=== PATIENT | male | born 1955 | race Caucasian/White ===

== ENCOUNTER 2016-05-28 06:31 | Inpatient (IN) | payer OTHER ==
[~2016-05-28] VITALS: Ht 193 cm; Wt 144.2 kg
[2016-05-28 06:32] VITALS: BP 162/104
--- NOTE | 2016-05-28 06:32 | NUR ---
PT TO BED 3 BY EMS.
--- NOTE | 2016-05-28 06:32 | NUR ---
PT [facility]. TAKEN TO BED 3
--- NOTE | 2016-05-28 06:33 | NUR ---
60 Y/O HERE C/O SOB XTODAY. PT INITIALLY ON MASK WHEN BIB AMBULANCE, D/T RECEIVING BREATHING TX.
--- NOTE | 2016-05-28 06:35 | NUR ---
RT CALLED AT BEDSIDE
--- NOTE | 2016-05-28 06:38 | NUR ---
Dr. Andersen evaluating patient at bedside.
[2016-05-28] MEDS ORDERED: ENALAPRILAT 2.5 MG/2 ML VIAL IVP ONE (06:50)
[2016-05-28] MEDS ORDERED: NITROGLYCERIN 2% 1 GM PKT TP ONE (06:50)
[2016-05-28] MEDS ORDERED: FUROSEMIDE 100 MG/10 ML VIAL IVP ONE (06:50)
--- NOTE | 2016-05-28 07:08 | NUR ---
Dr. Infante evaluating patient at bedside.
--- NOTE | 2016-05-28 07:23 | NUR ---
Pt report given to ERINN PIKE. Transfer of care at this time.
[2016-05-28] MEDS ORDERED: ALBUTEROL SULFATE/IPRATROPIU 3 ML SOL IH ONE (07:45)
[2016-05-28 07:53] VITALS: BP 155/83
--- NOTE | 2016-05-28 08:13 | NUR ---
PT PLACED ON BIPAP, ST /, RATE 18, FI02 35% PER DR PATEL, TOLERATING WELL. HHNTX ADMINISTERED, NO ADVERSE REACTION NOTED. WILL CONT TO MONITOR.
--- NOTE | 2016-05-28 08:16 | NUR ---
VASOTEC 2.5MG NOT GIVEN PER DR. KUMAR, PT HAD LASIX AND NITROBID. B/P COMING DOWN
--- NOTE | 2016-05-28 09:06 | NUR ---
Patient will be admitted to care of DR. VALENCIA. Admited to TELE. Will go to room 111 A. Belongings list completed. Report to ERINN TRAYLOR
--- NOTE | 2016-05-28 09:09 | NUR ---
PT TRANSEFERRED TO TELE
[2016-05-28 09:38] VITALS: BP 101/71
--- NOTE | 2016-05-28 09:38 | NUR ---
PT ADMITTED ON TO THE UNIT. VS STABLE. PT EATING BREAKFAST FAST. PT A/O X 4. PT SOB, ON 3L O2 NC. LUNGS DIMINISHED. NO CARDIAC DISTRESS. LBM ON 05/26/16. PICKETT CATHETER. RFA IV INTACT AND PATENT. 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 SAFETY MEASURES IN PLACE, ALLERGY BAND ATTACHED, FALL RISK PRECAUTIONS IN PLACE. CALL LIGHT WITHIN REACH. WILL INITIATE PLAN OF CARE AND CONTINUE TO MONITOR. RT TO FOLLOW UP WITH NEBULIZER MEDICATION AND BIPAP.
[2016-05-28] MEDS ORDERED: ONDANSETRON 4 MG/2 ML VIAL IVP PRN (09:40)
[2016-05-28] MEDS ORDERED: ACETAMINOPHEN 325 MG TAB PO PRN (09:40)
--- NOTE | 2016-05-28 10:15 | NUR ---
PT ON 3L NASAL CANNULA. PT DOES NOT WANT TO GO BACK ON BIPAP. PT IS NOT SOB AND NOT IN RESPIRATORY DISTRESS AT THIS TIME. PT STATES HE EXHIBITS SOB ON EXCERTION. ABG WILL BE PERFORMED.
[2016-05-28] MEDS: IPRATROPIUM 0.02% 0.5 MG/2.5 ML NEBU INH SCH ×4 (11:29→23:28)
[2016-05-28] MEDS: ALBUTEROL 0.083% 2.5 MG/3 ML NEBU INH SCH ×4 (11:29→23:28)
--- NOTE | 2016-05-28 11:30 | NUR ---
PT SLEEPING WITH BIPAP ON. NO S/S OF ACUTE CARDIAC/RESPIRATORY DISTRESS. CALL LIGHT WITHIN REACH. WILL CONTINUE TO MONITOR.
--- NOTE | 2016-05-28 11:50 | NUR ---
DR. VALENCIA MADE AWARE OF ABG RESULTS AND METABOLIC ACIDOSIS. NEW ORDERS GIVEN. ORDERS CARRIED OUT.
[2016-05-28 12:00] VITALS: BP 140/66
[2016-05-28] MEDS ORDERED: DEXTROSE 50% 50 ML SYR IVP PRN (12:00)
--- NOTE | 2016-05-28 12:14 | NUR ---
PT PLACED BACK ON BIPAP FOR SOB. PT TOLERATING WELL. BIPAP SETTINGS /, R18, 35%. BIPAP ALARMS ARE ON AND FUNCTIONING. WILL CONTINUE TO MONITOR.
[2016-05-28] MEDS: methylPREDNISolone SS 40 MG/ML VIAL IVP SCH ×2 (12:51→20:24)
[2016-05-28] MEDS: FUROSEMIDE 40 MG/4 ML VIAL IVP SCH ×2 (12:51→16:57)
--- NOTE | 2016-05-28 14:00 | NUR ---
PT AWAKE, MOVED TO [place] TO EAT LUNCH. WILL BE PLACED BACK ON BIPAP AFTER PT FINISH EATING LUNCH. CALL LIGHT WITHIN REACH. NO S/S OF DISTRESS OR DISCOMFORT. WILL CONTINUE TO MONITOR.
--- NOTE | 2016-05-28 14:14 | NUR ---
PT REMOVED BIPAP ON HIS OWN, STATED HE DID NOT WANT TO WHERE IT UNTIL HE ATE. PT PLACED ON 3L NASAL CANNULA. WILL CONTINUE TO MONITOR. NURSE DANE AWARE.
[2016-05-28 16:00] VITALS: BP 159/87
[2016-05-28] MEDS: BLOOD GLUCOSE MONITORING 1 DEV DEV FS SCH ×2 (16:56→20:52)
[2016-05-28] MEDS ORDERED: FUROSEMIDE 40 MG/4 ML VIAL IVP SCH (17:00)
--- NOTE | 2016-05-28 17:00 | NUR ---
PT SLEEPING ON BIPAP. NO S/S OF ACUTE DISTRESS OR DISCOMFORT. CALL LIGHT WITHIN REACH. WILL CONTINUE TO MONITOR.
[2016-05-28] MEDS: INSULIN ASPART SLIDING SCALE 100 UNITS/ML VIAL SUBQ PRN ×2 (17:42→21:07)
--- NOTE | 2016-05-28 19:22 | NUR ---
PT REFUSED SCD'S AT THIS TIME DUE TO BEING "TOO HOT". SCD'S LEFT AT BEDSIDE.
--- NOTE | 2016-05-28 19:30 | NUR ---
ENDORSED PLAN OF CARE TO NIGHT RN. PT REMAINS IN STABLE CONDITION.
--- NOTE | 2016-05-28 19:31 | NUR ---
RECEIVED REPORT FROM DAYSHIFT RN FOR CONTINUITY OF CARE. PATIENT IS A&OX4, DISCUSSED PLAN OF CARE WITH PATIENT, VERBALIZED UNDERSTANDING. NO S/S OF RESPIRATORY DISTRESS NOTED ON BIPAP. PATIENT DENIES PAIN BUT STATES BIPAP IS BOTHERING HIM. IV TO RT HAND 22 GAUGE FLUSHED AND PATENT. SHIFT ASSESSMENT DONE, VS TAKEN, STABLE. PATIENT HAS AMPUTATION TO 2ND AND 3RD TOES ON RT FOOT, RLE HEALED SCAB. PICKETT CATHETER IN PLACE DRAINING CLEAR YELLOW URINE. PT REFUSED SCDS AND BLANKET STATES THE ROOM IS HOT, OFFER PATIENT ICE PACKS. SAFETY/ FALL PRECAUTIONS ENFORCED. CALL LIGHT PLACED WITHIN REACH. WILL CONTINUE TO MONITOR.
[2016-05-28 20:00] VITALS: BP 123/56
[2016-05-28] MEDS: CARVEDILOL 6.25 MG TAB PO SCH (20:23)
[2016-05-28] MEDS: ATORVASTATIN 20 MG TAB PO SCH (20:24)
--- NOTE | 2016-05-28 20:35 | NUR ---
PT REMOVED BIPAP, EDUCATED PT ON IMPORTANCE OF USING BIPAP TO PREVENT RESPIRATORY DISTRESS, PT AGREED AND STATES, "I'LL USE IT LATER." WILL CONTINUE TO MONITOR.
--- NOTE | 2016-05-28 20:36 | NUR ---
PT REMOVED BIPAP, STS DOES NOT WANT TO USE IT AT THIS TIME. PLACED ON 3 L/M NC, PT'S RN, SILAS AT BEDSIDE, AWARE OF PT REQUEST.
--- NOTE | 2016-05-28 21:07 | NUR ---
MEDICATIONS ADMINISTERED, TOLERATED WELL. BLOOD SUGAR 328, ADMINISTERED INSULIN PER MD ORDER. PROVIDED PATIENT WITH A SNACK.
--- NOTE | 2016-05-28 21:34 | NUR ---
PT EXPERIENCING SHORTNESS OF BREATHE, PLACED ON BIPAP.
--- NOTE | 2016-05-28 23:34 | NUR ---
VS TAKEN, STABLE. PT IS SLEEPING, BIPAP IN PLACE. NO S/S OF DISTRESS OR DISCOMFORT NOTED.
[2016-05-29] VITALS: BP 140/63
--- NOTE | 2016-05-29 00:07 | NUR ---
PT REMOVED BIPAP, PLACED ON NASAL CANNULA.
--- NOTE | 2016-05-29 02:16 | NUR ---
ASSISTED PATIENT TO BEDSIDE COMMODE, LARGE BOWEL MOVEMENT. MINIMAL RESPIRATORY DISTRESS NOTED ON ROOM AIR. ASSISTED PATIENT BACK TO BED AND MADE COMFORTABLE, PLACED ON 3L NC. PT REFUSED BIPAP AT THIS TIME.
--- NOTE | 2016-05-29 02:41 | NUR ---
PT STATES, " I NEED BIPAP QUICK." PLACED ON BIPAP AND PROVIDED EXTRA PILLOW.
[2016-05-29] MEDS: ALBUTEROL 0.083% 2.5 MG/3 ML NEBU INH SCH ×6 (03:23→23:00)
[2016-05-29] MEDS: IPRATROPIUM 0.02% 0.5 MG/2.5 ML NEBU INH SCH ×6 (03:23→23:00)
[2016-05-29 04:00] VITALS: BP 136/59
[2016-05-29] MEDS: methylPREDNISolone SS 40 MG/ML VIAL IVP SCH ×3 (04:22→20:49)
--- NOTE | 2016-05-29 04:29 | NUR ---
VS TAKEN, STABLE. PATIENT REMOVED BIPAP AGAIN, ON 3L NC. PROVIDED PATIENT WITH SNACK.
[2016-05-29] MEDS: BLOOD GLUCOSE MONITORING 1 DEV DEV FS SCH ×4 (05:45→20:53)
[2016-05-29] MEDS: INSULIN ASPART SLIDING SCALE 100 UNITS/ML VIAL SUBQ PRN ×4 (06:07→21:12)
--- NOTE | 2016-05-29 06:07 | NUR ---
BLOOD SUGAR 305, INSULIN ADMINISTERED PER MD ORDER. PATIENT ON NASAL CANNULA, DOES NOT WANT BIPAP.
--- NOTE | 2016-05-29 06:40 | NUR ---
RECEIVED PT OFF BIPAP PT ON 5L N\C DECREASED TO 3L
--- NOTE | 2016-05-29 06:55 | NUR ---
PT REQUEST BIPAP ST 04/03 RR18 FIO2 35 DECREASED FIO2 TO 30 ALARMS ARE ON AND FUNCTIONAL PT WEARING F\F MASK SIZE LG BIPAP PLUGGED INTO RED OUTLET PT WAS AWAKE WENT BACK TO SLEEP
--- NOTE | 2016-05-29 07:17 | NUR ---
ENDORSED PATIENT TO DAYSHIFT RN FOR CONTINUITY OF CARE. PATIENT IS STABLE.
--- NOTE | 2016-05-29 07:18 | NUR ---
RECEIVED REPORT FROM NURSE CARE MANAGER RN. PT IS A/O X 4, NO S/S OF ACUTE CARDIAC/RESPIRATORY DISTRESS. PT IS EATING BREAKFAST AND REQUESTING MORE FOOD. PT ON NC WHILE EATING. LBM 05/28/16 ON BEDSIDE COMMODE. R HAND IV PATENT AND INTACT. VS STABLE. SAFETY MEASURES IN PLACE, CALL LIGHT WITHIN REACH. WILL CONTINUE PLAN OF CARE AND CONTINUE TO MONITOR.
--- NOTE | 2016-05-29 07:31 | NUR ---
CHANGE INNER CANNULA PORTEX 8 TRACH TIE GAUZE WITHOUT INCIDENT DRAIN H2O BAG PTS TRACH PORTEX 8 IS SECURE Addendum: 05/29/16 at 0735 by Jennifer Vizcarra RT PT REFUSES SX Addendum: 05/29/16 at 0803 by Jennifer Vizcarra RT WRONG PATIENT
--- NOTE | 2016-05-29 07:40 | NUR ---
DR VALENCIA MADE AWARE OF CRITICAL LABS BUN 61 AND CREATININE 2.7. NO NEW ORDERS GIVEN.
[2016-05-29 08:00] VITALS: BP 149/69
--- NOTE | 2016-05-29 08:12 | NUR ---
PATIENT HAS BEEN SCREENED AND CATEGORIZED HIGH NUTRITION RISK. PATIENT WILL BE SEEN WITHIN 1-2 DAYS OF ADMISSION. 05/29/16-05/30/[address]
--- NOTE | 2016-05-29 08:23 | NUR ---
CONT. POX PLACED
[2016-05-29] MEDS ORDERED: LOSARTAN 25 MG TAB PO SCH (09:00)
[2016-05-29] MEDS: CARVEDILOL 6.25 MG TAB PO SCH ×2 (09:00→09:30)
--- NOTE | 2016-05-29 09:04 | NUR ---
ENTERED ROOM TO DO BIPAP CHECK PT REMOVED BIPAP REFUSES AT THIS TIME 3 L N/C PLACED
[2016-05-29] MEDS: ENOXAPARIN 30 MG/0.3 ML SYR SUBQ SCH (09:29)
[2016-05-29] MEDS: FUROSEMIDE 40 MG/4 ML VIAL IVP SCH ×2 (09:29→12:34)
--- NOTE | 2016-05-29 09:43 | NUR ---
FAXED INITIAL REVIEW TO [facility] [phone] PHONE SACHA [phone]
--- NOTE | 2016-05-29 10:09 | NUR ---
PT WAS ON BEDSIDE COMMODE, LARGE BOWEL MOVEMENT. HELPED PT BACK IN BED AND PLACE BIPAP ON. NO S/S OF ACUTE DISTRESS OR DISCOMFORT. TOLERATED AM MEDS WELL. CALL LIGHT WITHIN REACH. WILL CONTINUE TO MONITOR.
--- NOTE | 2016-05-29 10:52 | NUR ---
PT HAD REMOVED BIPAP DESAT REPLACED BIPAP HHN GIVEN I\L PT SPO2 NOW 100
[2016-05-29 12:00] VITALS: BP 161/71
--- NOTE | 2016-05-29 12:09 | NUR ---
PT RESTING IN BED. NO S/S OF ACUTE DISTRESS. PT DENIES PAIN. PT ON BIPAP. CALL LIGHT WITHIN REACH. WILL CONTINUE TO MONITOR.
[2016-05-29] MEDS ORDERED: SODIUM POLYSTYRENE 15 GM/60 ML UDBTL PO SCH (13:00)
[2016-05-29] MEDS ORDERED: SODIUM POLYSTYRENE 15 GM/60 ML UDBTL PO ONE (13:50)
--- NOTE | 2016-05-29 14:00 | NUR ---
PT REMOVED BIPAP 3L N\C PLACED WITH EXTENSION
[2016-05-29] MEDS ORDERED: INSULIN DETEMIR 100 UNITS/ML 10 ML VIAL SUBQ SCH (14:30)
--- NOTE | 2016-05-29 15:52 | NUR ---
PT RESTING IN BED. ON O2 3L NC. NO S/S OF ACUTE DISTRESS.PT DENIES PAIN. RT AT BEDSIDE. CALL LIGHT WITHIN REACH. WILL CONTINUE TO MONITOR.
[2016-05-29 16:00] VITALS: BP 119/81
--- NOTE | 2016-05-29 16:10 | NUR ---
PT HAVING PROCEDURE BEDSIDE
--- NOTE | 2016-05-29 16:24 | NUR ---
PT STILL HAVING PROCEDURE
--- NOTE | 2016-05-29 16:45 | NUR ---
1700 TAKEN OUT IN THORACENTESIS. NO S/S OF ACUTE DISTRESS. PT DENIES PAIN. CALL LIGHT WITHIN REACH. WILL CONTINUE TO MONITOR.
--- NOTE | 2016-05-29 17:30 | NUR ---
PAGED DR VALENCIA FOR CORRECT LAB ORDERS IN REGARDS TO THE 1700ML PLEURAL FLUID. AWAITING CALL BACK.
--- NOTE | 2016-05-29 19:00 | NUR ---
AWAITING CALL BACK FROM DR. VALENCIA IN REGARDS TO CORRECT LAB ORDERS FOR PLEURAL FLUID. WILL ENDORSE TO MANUAL EQUIPMENT MECHANIC RN.
--- NOTE | 2016-05-29 19:19 | NUR ---
PT IS AWAKE ALERT WITH NO SOB OR DISTRESS NOTED. SAT IS 94% ON RA. BIPAP AT BEDSIDE PT SAID HE DOESNT NEED IT. RN SILAS AWARE. WILL CONTINUE TO MONITOR.
--- NOTE | 2016-05-29 19:32 | NUR ---
ENDORSED PLAN OF CARE TO NIGHT RN. PT REMAINS IN STABLE CONDITION.
--- NOTE | 2016-05-29 19:33 | NUR ---
RECEIVED REPORT FROM DAYSHIFT RN FOR CONTINUITY OF CARE. PATIENT IS A&OX4, DISCUSSED PLAN OF CARE WITH PATIENT, VERBALIZED UNDERSTANDING. NO S/S OF RESPIRATORY DISTRESS NOTED ON ROOM AIR AT THIS TIME. PATIENT DENIES PAIN. IV TO RT HAND 22 GAUGE FLUSHED AND PATENT. SHIFT ASSESSMENT DONE, VS TAKEN, STABLE. PATIENT HAS AMPUTATION TO 2ND AND 3RD TOES ON RT FOOT, RLE HEALED SCAB. PICKETT CATHETER IN PLACE. SAFETY/ FALL PRECAUTIONS ENFORCED. CALL LIGHT PLACED WITHIN REACH. WILL CONTINUE TO MONITOR.
[2016-05-29 19:54] VITALS: BP 157/78
--- NOTE | 2016-05-29 20:35 | NUR ---
SPOKE WITH DR. CLEMONS REGARDING PLEURAL FLUID LABS. WILL FOLLOW OUT ORDERS.
[2016-05-29] MEDS: ATORVASTATIN 20 MG TAB PO SCH (20:48)
[2016-05-29] MEDS: CARVEDILOL 12.5 MG TAB PO SCH (20:49)
--- NOTE | 2016-05-29 21:12 | NUR ---
DUE MEDICATIONS ADMINISTERED, TOLERATED WELL. BLOOD SUGAR 332, ADMINISTERED INSULIN PER MD ORDER. CALL LIGHT PLACED WITHIN REACH.
--- NOTE | 2016-05-29 22:49 | NUR ---
PT REFUSED TX AND O2 SAT CHECK AND WANTS TO SLEEP. LORENZO ROSEN AWARE. WILL CONTINUE TO MONITOR.
--- NOTE | 2016-05-29 22:50 | NUR ---
INFORMED THAT PT REFUSING BREATHING TX. NO S/S OF RESPIRATORY DISTRESS NOTED ON 3L NC. PATIENT IS NOW SLEEPING. CALL LIGHT WITHIN REACH.
--- NOTE | 2016-05-29 23:59 | NUR ---
VS TAKEN, STABLE. PATIENT REQUESTED A SANDWICH AND TO HAVE THE CURTAIN CLOSED SO HE CAN SLEEP. CALL LIGHT PLACED WITHIN REACH.
[2016-05-30] VITALS (7 sets, daily range): BP systolic 125–152; BP diastolic 53–77
[2016-05-30] MEDS: ALBUTEROL 0.083% 2.5 MG/3 ML NEBU INH SCH ×6 (01:48→23:46)
[2016-05-30] MEDS: IPRATROPIUM 0.02% 0.5 MG/2.5 ML NEBU INH SCH ×6 (01:48→23:46)
--- NOTE | 2016-05-30 01:49 | NUR ---
GOT A CALL FROM LORENZO ROSEN THAT PT IS SOB. UPON ARRIVAL PT WAS ON BIPAP 04/03,18,35% SAT 99% HR 82. WILL ADMINISTER TX AND CONTINUE TO MONITOR. ERINN ROSEN AT BEDSIDE.
[2016-05-30] MEDS: MORPHINE SULFATE 2 MG/ML SYR IVP PRN ×2 (02:04→21:47)
--- NOTE | 2016-05-30 02:04 | NUR ---
PATIENT HAD COMPLAINTS OF CHEST PAIN. PLACED PT ON BIPAP AND MEDICATED WITH MORPHINE PER MD ORDER.
[2016-05-30] MEDS: BLOOD GLUCOSE MONITORING 1 DEV DEV FS SCH ×5 (03:17→20:49)
--- NOTE | 2016-05-30 04:35 | NUR ---
PT C/O RETURN OF CHEST PAIN, VS TAKEN AND STABLE. SPOKE WITH . WILL FOLLOW OUT ORDERS GIVEN.
--- NOTE | 2016-05-30 04:48 | NUR ---
TROPONIN DRAWN PER MD ORDER BY LAB. PT REFUSED NITRO FOR CHEST PAIN, STATES "IT GIVES ME A HEADACHE." EDUCATED PATIENT, PT STILL REFUSED. CALL LIGHT PLACED WITHIN REACH.
[2016-05-30] MEDS ORDERED: NITROGLYCERIN 0.4 MG TAB SL PRN (04:50)
[2016-05-30] MEDS: methylPREDNISolone SS 40 MG/ML VIAL IVP SCH ×2 (05:09→12:27)
[2016-05-30] MEDS: INSULIN ASPART SLIDING SCALE 100 UNITS/ML VIAL SUBQ PRN ×4 (06:22→20:54)
--- NOTE | 2016-05-30 06:22 | NUR ---
BLOOD SUGAR TAKEN, 317, COVERED WITH INSULIN PER MD ORDER. PT IS NOW ON NASAL CANNULA STATES, "IM NOT GOING HOME WITH MACHINE, I DON'T WANT TO USE IT." CALL LIGHT PLACED WITH IN REACH.
--- NOTE | 2016-05-30 07:17 | NUR ---
ENDORSED PATIENT TO DAYSHIFT RN FOR CONTINUITY OF CARE. PATIENT IS STABLE AT THIS TIME.
--- NOTE | 2016-05-30 07:18 | NUR ---
RECEIVED REPORT FROM PROSTHETIC LAB TECHNICIAN RN SILAS. PT IS SLEEPING ON 3L NC AFTER BREATHING TREATMENT. IV RIGHT HAND INTACT AND PATENT. PT IS A/O X 4, CHAIRFAST DUE TO SOB. NO S/S OF ACUTE CARDIAC/RESPIRATORY DISTRESS OR DISCOMFORT. LBM 05/29/16. SAFETY MEASURES IN PLACE. FALL PRECAUTIONS IN PLACE. CALL LIGHT WITHIN REACH. WILL CONTINUE PLAN OF CARE AND CONTINUE TO MONITOR.
[2016-05-30] MEDS: MORPHINE SULFATE 4 MG/ML SYR IVP PRN ×2 (07:56→18:51)
--- NOTE | 2016-05-30 08:00 | NUR ---
PT FEELING SOB AND CHEST PAIN WITH 3L NC. PLACED PT BACK ON BIPAP AND ADMINISTERED MORPHINE IVP. PT STATES MORPHINE HELPED A LITTLE, BUT CAN NOT BREATHE GOOD ON BIPAP PRIOR TO THORACENTESIS. DR VALENCIA MADE AWARE, NEW ORDERS GIVEN AND MILLER TO BE MADE AWARE, AWAITING CALL BACK.
[2016-05-30] MEDS ORDERED: INSULIN DETEMIR 100 UNITS/ML 10 ML VIAL SUBQ SCH (09:00)
--- NOTE | 2016-05-30 09:18 | NUR ---
BIPAP CHECK, ABG DRAWN ON RR WITHOUT INCIDENT AND PT IS AWAKE
--- NOTE | 2016-05-30 09:27 | NUR ---
DR MILLER MADE AWARE OF CURRENT PT RESPIRATORY DISTRESS THIS MORNING. NEW ORDERS GIVEN, CXR TO RULE OUT PNEUMOTHORAX, LASIX IVP, AND ANOTHER DOSE OF MORPHINE. CXR AND LASIX IVP ORDERS CARRIED OUT. PT REFUSED ANOTHER DOSE OF MORPHINE, PT STATES "I DONT WANT TO BE DOPED UP". PT MADE AWARE OF RISK AND BENEFITS.
[2016-05-30] MEDS: FUROSEMIDE 40 MG/4 ML VIAL IVP SCH ×2 (09:28→20:50)
[2016-05-30] MEDS: ENOXAPARIN 30 MG/0.3 ML SYR SUBQ SCH (09:29)
[2016-05-30] MEDS: CARVEDILOL 12.5 MG TAB PO SCH ×2 (09:31→20:50)
--- NOTE | 2016-05-30 09:53 | NUR ---
DR MILLER MADE AWARE OF THIS MORNING'S ABG. NEW ORDERS TO CHANGE SETTINGS TO 16/8. RT MADE AWARE.
--- NOTE | 2016-05-30 10:25 | NUR ---
TRANSFERRED PT FROM 111A TO 124B.
--- NOTE | 2016-05-30 11:44 | NUR ---
RECEIVED CRITICAL LAB TROPONIN 0.239. PAGED PALIWAL, AWAITING CALL BACK.
--- NOTE | 2016-05-30 11:52 | NUR ---
CM NOTE CONCURRENT REVIEW FAXED TO [facility] / FAX# [phone], ATTN: SACHA #[phone]
--- NOTE | 2016-05-30 12:00 | NUR ---
GAGANDEEP MADE AWARE OF CRITICAL LAB VALUE TROPONIN 0.239, NO NEW ORDERS.
--- NOTE | 2016-05-30 13:08 | NUR ---
BIPAP CHECK, PT IS RESTING COMFORTABLY WITH NO SIGNS OF DISTRESS NOTED AT THIS TIME
--- NOTE | 2016-05-30 13:56 | NUR ---
PT SLEEPING WITH BIPAP ON. NO S/S OF ACUTE DISTRESS OR DISCOMFORT. CALL LIGHT WITHIN REACH. WILL CONTINUE TO MONITOR.
--- NOTE | 2016-05-30 14:06 | NUR ---
RD INITIAL ASSESSMENT COMPLETED PLEASE REFER TO NUTRITION ASSESSMENT UNDER CARE ACTIVITY FOR ESTIMATED NUTRITIONAL NEEDS. RD RECOMMENDATIONS: 1. CONTINUE 45 CCHO, CARDIAC DIET MEDICALLY APPROPRIATE. -- NOTE PT IS CURRENTLY MEETING >100% OF ESTIMATED NEEDS WITH AN AVG PO INTAKE OF 100%. 2. RD LEFT DM DIET EDUCATION HANDOUTS ON PT BEDSIDE, RD WILL FOLLOW UP WITH DIET EDUCATION ON THE NEXT VISIT. 3. RD WILL F/U 3-5 DAYS; MODERATE RISK. LORENE FOX RD
--- NOTE | 2016-05-30 14:40 | NUR ---
PAGEWade DONIS IN REGARDS TO 1245 TROPONIN VALUE OF 0.871. AWAITING CALL BACK.
--- NOTE | 2016-05-30 15:11 | NUR ---
BIPAP CHECK, I\L TX GIVEN WITH ALBUTEROL 2.GM AND ATROVENT 0.5MG WITH NO ADVERSE REACTION POST TX B\S ARE DIMINISHED AND PT IS SLEEPING DURING TX NO SIGNS OF DISTRESS NOTED AT THIS TIME
--- NOTE | 2016-05-30 17:16 | NUR ---
BIPAP CHECK, PT IS SLEEPING WITH NO SIGNS OF DISTRESS NOTED AT THIS TIME
--- NOTE | 2016-05-30 18:31 | NUR ---
PT REPOSITIONED TO SITTING POSITION. PT PLACED ON BIPAP. NO S/S OF ACUTE DISTRESS. PT DENIES PAIN. CALL LIGHT WITHIN REACH. WILL CONTINUE TO MONITOR.
--- NOTE | 2016-05-30 18:45 | NUR ---
PT STATES PAIN HAS COME BACK 12/06. PT RESTING IN BED. NO S/S OF ACUTE DISTRESS. WILL MEDICATE ORDERED.
--- NOTE | 2016-05-30 19:20 | NUR ---
ENDORSED REPORT TO WOOD PLANER ERINN PIMENTEL. PT HAS NO S/S OF ACUTE DISTRESS/DISCOMFORT. PT IN STABLE CONDITION.
--- NOTE | 2016-05-30 19:21 | NUR ---
RECEIVED REPORT FROM AM NURSE. PATIENT IS SLEEPING BUT EASILY AWAKEN BY HIS NAME. ON BIPAP, HAS NO S/S OF RESPIRATORY DISTRESS/DISCOMFORT NOTED. IV SITE IS PATENT AND INTACT, SALINE LOCK. ON PICKETT CATHETER, 10 CC URINE OUTPUT. PLAN OF CARE DISCUSSED, VERBALIZED AGREEMENT. SAFETY MEASURES CHECKED, CALL LIGHT WITHIN REACH. WILL CONTINUE TO MONITOR.
[2016-05-30] MEDS: ATORVASTATIN 20 MG TAB PO SCH (20:50)
--- NOTE | 2016-05-30 20:59 | NUR ---
DUE MEDS GIVEN. INFO ABOUT MEDS GIVEN, BENEFITS AND S/E, VERBALIZED AGREEMENT. PATIENT TOLERATED WELL.
--- NOTE | 2016-05-30 21:21 | NUR ---
PATIENT REFUSED TO CHANGE HIS BEDSHEET. PATIENT STATED " I DON'T WANT TO TOUCH AT THIS TIME".
--- NOTE | 2016-05-30 21:47 | NUR ---
PATIENT COMPLAINED PAIN OF 7/10. ADMINISTERED PAIN MEDS PER MD ORDERED.
--- NOTE | 2016-05-30 21:50 | NUR ---
PAGED DR. CLEMONS. WAITING FOR CALL BACK.
--- NOTE | 2016-05-30 21:58 | NUR ---
CALL BACK RECEIVED. SPOKE WITH DR CLEMONS, REPORTED CRITICAL VALUE OF TROPONIN I= 0.620, MADE AWARE.
--- NOTE | 2016-05-30 23:53 | NUR ---
RT AT BEDSIDE AT THIS TIME FOR BREATHING TREATMENT.
[2016-05-31] VITALS: BP 126/60
--- NOTE | 2016-05-31 | NUR ---
PT TOOK THE MASK OFF FOR COUPLE MINUTES TO EAT AND HE CAN NOT BREATH, .PLACED THE MASK BACK FOR HIM AND HE IS SITTING AT BED SIDEON BIPAP, MED NEB IN LINE WITH BIPAP.
--- NOTE | 2016-05-31 01:28 | NUR ---
PT REQUESTED A TUNA SANDWICH AND CURRENTLY EATING. TOOK OFF THE MASK AND REPLACED WITH NASAL CANNULA.
--- NOTE | 2016-05-31 01:56 | NUR ---
PT LAYING ON BED. NO BIPAP, WITH NO S/S OF RESPIRATORY DISTRESS/DISCOMFORT NOTED.
[2016-05-31 04:00] VITALS: BP 121/55
[2016-05-31] MEDS: ALBUTEROL 0.083% 2.5 MG/3 ML NEBU INH SCH ×6 (04:06→23:20)
[2016-05-31] MEDS: IPRATROPIUM 0.02% 0.5 MG/2.5 ML NEBU INH SCH ×6 (04:06→23:20)
--- NOTE | 2016-05-31 04:28 | NUR ---
VS CHECKED. DENIED ANY PAIN. NO S/S OF RESPIRATORY DISTRESS/DISCOMFORT NOTED.
[2016-05-31] MEDS: BLOOD GLUCOSE MONITORING 1 DEV DEV FS SCH ×4 (05:29→21:27)
[2016-05-31] MEDS: INSULIN ASPART SLIDING SCALE 100 UNITS/ML VIAL SUBQ PRN ×4 (05:31→21:25)
--- NOTE | 2016-05-31 05:33 | NUR ---
BS CHECKED. BSL= 272, 6 UNITS OF INSULIN WAS GIVEN.
--- NOTE | 2016-05-31 07:35 | NUR ---
ENDORSED REPORT TO AM NURSE. PT IS STABLE.
--- NOTE | 2016-05-31 07:36 | NUR ---
RECEIVED REPORT FROM ERINN PIMENTEL. PT IS AAOX4. PT ON BIPAP, O2 SAT AT 100%. PICKETT CATHETER IN PLACE. IV TO RIGHT HAND #22, PATENT AND INTACT. RIGHT LOWER EXTREMITY HEALED SCAR. NO N/V OR PAIN INDICATED. ALL SAFETY PRECAUTIONS IN PLACE. WILL CONTINUE TO MONITOR.
[2016-05-31 08:00] VITALS: BP 146/73
--- NOTE | 2016-05-31 08:06 | NUR ---
PAGED DR MANRIQUE AWAITING CALLBACK.
--- NOTE | 2016-05-31 08:10 | NUR ---
RECEIVED CALLBACK FROM DR MANRIQUE, NO ORDERS RECEIVED.
--- NOTE | 2016-05-31 08:15 | NUR ---
RECIVED PT ON VENT WITH SETTINGS CHARTED PT AWAKE ALERT ANXIOUS BIPAP MACHINE PLUGGED NTO RED OUTLET AMBU BAG AT BEDSIDE
[2016-05-31] MEDS: INSULIN DETEMIR 100 UNITS/ML 10 ML VIAL SUBQ SCH (09:00)
[2016-05-31] MEDS: CARVEDILOL 12.5 MG TAB PO SCH ×2 (10:09→21:18)
[2016-05-31] MEDS: methylPREDNISolone SS 40 MG/ML VIAL IVP SCH (10:09)
[2016-05-31] MEDS: FUROSEMIDE 40 MG TAB PO SCH ×2 (10:10→12:28)
[2016-05-31] MEDS: MORPHINE SULFATE 4 MG/ML SYR IVP PRN ×2 (10:12→21:18)
[2016-05-31] MEDS: ENOXAPARIN 30 MG/0.3 ML SYR SUBQ SCH (10:21)
--- NOTE | 2016-05-31 10:25 | NUR ---
PT TOLERATED MEDS WELL. VSS. BLOOD GLUCOSE 236, ADMINISTERED 20 UNITS OF LEVEMIR ORDERED. WILL CONTINUE TO MONITOR.
--- NOTE | 2016-05-31 11:28 | NUR ---
CM NOTE CONCURRENT REVIEW FAXED TO [facility] / FAX# [phone], ATTN: SACHA #[phone]
[2016-05-31 12:00] VITALS: BP 110/79
--- NOTE | 2016-05-31 12:30 | NUR ---
BLOOD GLUCOSE 253, ADMINISTERED 6 UNITS OF INSULIN ORDERED. VSS. PT TOLERATED MEDS WELL. WILL CONTINUE TO MONITOR.
--- NOTE | 2016-05-31 13:01 | NUR ---
CM NOTE SPOKE W/ PATIENT AT BEDSIDE. PATIENT HAS 02 AT HOME BUT DOES NOT HAVE BIPAP AT HOME; REQUESTED BIPAP FOR HOME USE. REQUESTED PHYSICAL THERAPY EVAL TO BE ORDERED; POSSIBLY MIGHT BE SENT TO SNF FOR PHYSICAL THERAPY. NIKO ELLISON & DANIS PLASENCIA MADE AWARE. Addendum: 05/31/16 at 1358 by Masood Younger RN PER NICK GONCALVES FOR [facility], NO SLEEP STUDY NEEDED FOR BIPAP HOME USE; [facility] WILL BE ABLE TO SUPPLY BIPAP.
--- NOTE | 2016-05-31 13:41 | NUR ---
SHAVED PTS PADILLA TO HAV BETTER SEAL FOR BIPAP MASK RN AWARE PT FAMILY MEMBERS AT BEDSIDE
--- NOTE | 2016-05-31 14:30 | NUR ---
SPOKE WITH DR FUNES AND DR VALENCIA. 'S AWARE OF PT'S ELEVATED POTASSIUM AND LOW HEMOGLOBIN. DR VALENCIA TO PLACE ORDER FOR 1 UNIT PRBC TRANSFUSION. WILL FOLLOW UP.
--- NOTE | 2016-05-31 15:26 | NUR ---
RESPIRATORY THERAPIST IN TO SEE PT.
[2016-05-31] MEDS ORDERED: FUROSEMIDE 20 MG/2 ML VIAL IVP SCH (15:33)
--- NOTE | 2016-05-31 15:59 | NUR ---
BLOOD GLUCOSE 247, ADMINISTERED 4 UNITS OF INSULIN ORDERED. PT WANTED TO EAT AT THIS MOMENT AND INSULIN GIVEN. Addendum: 05/31/16 at 1600 by Trena Morris RN VSS. PT TOLERATED MEDS WELL.
[2016-05-31 16:00] VITALS: BP 121/61
--- NOTE | 2016-05-31 17:21 | NUR ---
CONTINUED TO MONITOR PT ON BIPAP WITH SETTINGS CHARTED BREATH SOUNDS PRESENT BILA BIPAP PLUGGED INTO RED OUTLET AMBU BAG AT BEDSIDE
--- NOTE | 2016-05-31 19:02 | NUR ---
RECEIVED PT STABLE ON BIPAP AT DOCUMENTED SETTINGS WITH MASK SECURED. TX GIVEN INLINE WITH VENT, TOLERATED WELL, NO RESP DISTRESS OR SOB NOTED. BIPAP PLUGGED INTO RED OUTLET, AMBU BAG BEDSIDE, WILL CONTINUE TO MONITOR.
--- NOTE | 2016-05-31 19:18 | NUR ---
ENDORSED CARE TO ERINN GURROLA. PT IN STABLE CONDITION.
--- NOTE | 2016-05-31 19:25 | NUR ---
RECEIVED PT ASLEEP, EASILY AROUSABLE, DENIES ANY PAIN, ON BIPAP AT 35% FI02 WITH SAT-96%, PICKETT CATHETER IN PLACE WITH CLEAR YELLOW OUTPUT, POC DISCUSSED, SAFETY MEASURES IN PLACE, CALL LIGHT WITHIN REACH.
[2016-05-31 20:00] VITALS: BP 130/59
--- NOTE | 2016-05-31 20:20 | NUR ---
NEW IV LINE STARTED BY CHARGE NURSE STEPHANIE TO LEFT HAND GAUGE 22 WITH GOOD BACK FLOW, VITAL SIGNS STABLE, AFEBRILE, 1 UNIT PRBC STARTED, MONITORED CLOSELY FOR REACTION, ALL NEEDS ATTENDED.
[2016-05-31] MEDS: ATORVASTATIN 20 MG TAB PO SCH (21:18)
--- NOTE | 2016-05-31 21:30 | NUR ---
BLOOD SUGAR CHECKED WITH 242 RESULT, COVERAGE GIVEN, DUE MEDICATION ADMINISTERED, SNACK PROVIDED, CONSUMED WHILE ON 4L O2 VIA NC, UNABLE TO TOLERATE TO BE OFF BIPAP FOR A PERIOD OF TIME, PUT BACK ON BIPAP, MONITORED CLOSELY.
--- NOTE | 2016-05-31 22:40 | NUR ---
BLOOD TRANSFUSION DONE WITH VITAL SIGNS STABLE, NO SIGNS OF REACTION NOTED, IV HEP LOCKED, ASSIST IN REPOSITION AND OFFLOAD PRESSURE AREAS, MONITORED CLOSELY.
[2016-06-01] VITALS (11 sets, daily range): BP systolic 130–162; BP diastolic 48–86
--- NOTE | 2016-06-01 | NUR ---
SLEEPING, EASILY AROUSABLE, VITAL SIGNS STABLE, NO SIGNS OF DISTRESS, BREATHING TX PER RT, CONTINUE ON BIPAP, MONITORED CLOSELY.
--- NOTE | 2016-06-01 02:00 | NUR ---
ROUNDED ON PT, SLEEPING, EASILY AROUSABLE, NO SIGNS OF DISTRESS, PER CHIEF LOCK TENDER OPERATOR PT REFUSED TO BE REPOSITIONED, RISK AND BENEFITS EXPLAINED.
[2016-06-01] MEDS: ALBUTEROL 0.083% 2.5 MG/3 ML NEBU INH SCH ×6 (03:18→23:40)
[2016-06-01] MEDS: IPRATROPIUM 0.02% 0.5 MG/2.5 ML NEBU INH SCH ×6 (03:18→23:40)
--- NOTE | 2016-06-01 04:00 | NUR ---
SLEEPING, EASILY AROUSABLE, VITAL SIGNS STABLE, DENIES ANY PAIN, NO DISTRESS NOTED, CONTINUE ON BIPAP, TOLERATING WELL, MONITORED CLOSELY.
[2016-06-01] MEDS: INSULIN ASPART SLIDING SCALE 100 UNITS/ML VIAL SUBQ PRN ×4 (06:03→20:41)
--- NOTE | 2016-06-01 06:10 | NUR ---
AM LABS DRAWN, BLOOD SUGAR CHECKED WITH 182 RESULT, COVERAGE GIVEN, PT PREFER TO HAVE TUNA SANDWICH FOR BREAKFAST, TALKED TO DARA FROM DIETARY AND MADE AWARE.
[2016-06-01] MEDS: BLOOD GLUCOSE MONITORING 1 DEV DEV FS SCH ×4 (06:38→20:37)
--- NOTE | 2016-06-01 07:20 | NUR ---
PT ASLEEP, NO SIGNS OF DISTRESS, REPORT GIVEN TO RN DANIS FOR CONTINUITY OF CARE.
--- NOTE | 2016-06-01 07:21 | NUR ---
RECEIVED REPORT FROM ERINN GURROLA. PT IS AAOX4. PT ON BIPAP 35%, O2 SAT AT 100%. IV TO LEFT HAND #22 AND RIGHT HAND #22, PATENT AND INTACT. RIGHT LOWER EXTREMITY HEALED-SCAR. NO N/V OR PAIN INDICATED. PICKETT CATHETER IN PLACE. ALL SAFETY PRECAUTIONS IN PLACE, SIDE RAILSX2, BED IN LOW POSITION, AND CALL LIGHT WITHIN REACH. WILL CONTINUE TO MONITOR.
--- NOTE | 2016-06-01 07:55 | NUR ---
PT REMOVED MASK AND ON NC SOB TRYING TO EAT i SET PT UP ON SIDE OF BED ON NC PT ABLE TO EAT IN BETWEEN PLACING BIPAP MASK OVER HIS FACE IN BETWEEN BITES EXPLAINED TO PT OF DANGERS OF POSSIBLE ASPIRATION AND MAKE SURE TO SWALLOW HIS FOOD BEFORE PUTTING BIPAP MASK OVER FACE i MONITORED PT WHILE EATING PT ATE i THEN PLACED PT BACK ON BIPAP PT BACK IN BED PAMELA BIPAP WELL WILL CONTINUE TO MONITOR
[2016-06-01] MEDS: INSULIN DETEMIR 100 UNITS/ML 10 ML VIAL SUBQ SCH (09:45)
[2016-06-01] MEDS: ENOXAPARIN 30 MG/0.3 ML SYR SUBQ SCH (09:45)
[2016-06-01] MEDS: FUROSEMIDE 40 MG TAB PO SCH ×2 (09:46→12:31)
[2016-06-01] MEDS: CARVEDILOL 12.5 MG TAB PO SCH ×2 (09:46→20:33)
[2016-06-01] MEDS: methylPREDNISolone SS 40 MG/ML VIAL IVP SCH (09:47)
--- NOTE | 2016-06-01 09:52 | NUR ---
PT TOLERATED MEDS WELL. BP 139/95, HR 82. BLOOD GLUCOSE 207, ADMINISTERED 20 UNITS OF LEVEMIR ORDERED. WILL CONTINUE TO MONITOR.
[2016-06-01] MEDS: MORPHINE SULFATE 4 MG/ML SYR IVP PRN (09:59)
--- NOTE | 2016-06-01 10:03 | NUR ---
VSS. PT C/O 10/06 PAIN. ADMINISTERED MORPHINE 4MG. WILL CONTINUE TO MONITOR.
--- NOTE | 2016-06-01 11:20 | NUR ---
FAMILY PRESENT AT BEDSIDE.
--- NOTE | 2016-06-01 11:29 | NUR ---
P.T. NOTES RECEIVED P.T. EVAL ORDER, Pt WAS SEEN SLEEPY IN BED, WOKE UP W/ P.T., BiPAP IN PLACE, Pt REFUSED TO PARTICIPATE W/ P.T., WOULD RATHER REST, HAVING BREATHING ISSUES, EXPLAINED BENEFIT OF THERAPY & OFFERED TO COME BACK LATER, Pt STILL DECLINED, STATES "TRY TOMORROW IF I'M FEELING BETTER", APPRECIATIVE; CALL TRIMBLE, PHONE, TABLE IN REACH; APPRECIATIVE; Pt STATES HE LIVES AT HOME W/ SOME PEOPLE, HAS FWW, CANE, HOME O2; FOLLOW UP TOMORROW, NURSE AWARE. PVE
--- NOTE | 2016-06-01 12:02 | NUR ---
BLOOD GLUCOSE 214, ADMINISTERED 4 UNITS OF INSULIN ORDERED.
--- NOTE | 2016-06-01 12:33 | NUR ---
PT TOLERATED MEDS WELL. BP 134/52, HR 76. WILL CONTINUE TO MONITOR.
--- NOTE | 2016-06-01 14:00 | NUR ---
INCREASED IPAP TO 20 AND RR TO [address] MILLER
--- NOTE | 2016-06-01 14:46 | NUR ---
PT TO BE TRANSFERRED TO ICU.
--- NOTE | 2016-06-01 15:13 | NUR ---
RECEIVED REPORT FROM DANIS Linn RN. AWAITING ARRIVAL OF PT TO UNIT.
--- NOTE | 2016-06-01 15:41 | NUR ---
[facility] ONSITE AND VERBAL UPDATE ON PT'S CLINICAL CONDITION PROVIDED.
--- NOTE | 2016-06-01 16:15 | NUR ---
PT ARRIVED TO UNIT VIA GURNEY. NO COMPLAINTS OF PAIN AT THIS TIME, SOB NOTED. PT IS ON BIPAP. IPAP: 20, EPAP: 8, RATE: 24, FIO2: 35%. IV TO RIGHT HAND #24 AND LEFT HAND #22 PATENT AND INTACT. 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 OLD SCAR NOTED TO LEFT LOWER EXTREMITY. PICKETT CATHETER IN PLACE DRAINING TO GRAVITY DRAINAGE BAG. SAFETY PRECAUTIONS IN PLACE WITH BED IN LOWEST POSITION AND SIDE RAILS UP X2. CALL LIGHT WITHIN REACH. PT'S BROTHER, J LUIS, AT BEDSIDE. RT PRESENT AT BEDSIDE. TEMP: 98.3, HR: 78, O2: 96%, RR: 24, BP: 153/86. PT IS CURRENTLY SINUS RHYTHM ON THE MONITOR. WILL CONTINUE TO MONITOR.
--- NOTE | 2016-06-01 16:20 | NUR ---
PT HAS BEEN TRANSFERRED TO ICU VIA GURNEY. RESPIRATORY AT BEDSIDE. 1100 ML OUTPUT NOTED PRIOR TO DISCHARGE. ENDORSED CARE TO ERINN ROSEN.
--- NOTE | 2016-06-01 16:20 | NUR ---
PT TRANSFERRED TO ICU VIA BIPAP NO ILL EFFECTS NOTED
--- NOTE | 2016-06-01 16:34 | NUR ---
DOCK SUPERINTENDENT PRESENT AT PT BEDSIDE.
--- NOTE | 2016-06-01 16:59 | NUR ---
PT'S OWN MEDS TAKEN TO PHARMACY. STICKER PLACED ON CHART.
--- NOTE | 2016-06-01 17:15 | NUR ---
PT TOLERATED MEDS WELL. PT REFUSED HYGIENE CARE.
--- NOTE | 2016-06-01 18:00 | NUR ---
PT'S SISTER, ALYCIA, PRESENT AT BEDSIDE
--- NOTE | 2016-06-01 18:21 | NUR ---
DR. Zenon DONIS IN TO SEE PT. WILL FOLLOW UP ON ORDERS
--- NOTE | 2016-06-01 19:05 | NUR ---
ENDORSED CARE TO ERINN HOGAN. PT IN STABLE CONDITION.
--- NOTE | 2016-06-01 19:15 | NUR ---
RECEIVED REPORT FROM SILAS PLASENCIA. PATIENT IS RESTING IN BED RECEIVING OXYGEN THERAPY VIA BIPAP. RHONCHI HEARD UPON AUSCULTATION. BOWEL SOUNDS ARE ACTIVE. BIPAP SETTINGS ARE FOLLOWS I/E 20/8, RATE 24, FIO2 35%. NO SIGNS OF SHORTNESS OF BREATH AT THIS TIME. RESPIRATORY THERAPIST AT BEDSIDE. THERE IS A #24 IN THE RIGHT HAND SALINE LOCK AND A #22 IN THE LEFT HAND SALINE LOCK. BOTH SITES ARE DRY AND INTACT. THERE IS A PICKETT CATHETER PRESENT WITH MODERATE AMOUNT OF CLEAR YELLOW URINE PRESENT. PATIENT REQUESTED ICED WATER. FOLLOWED UP WITH PATIENT'S REQUEST. PATIENT'S NEEDS MET AT THIS TIME. HOB AT 30 DEGREES WITH BED IN LOW POSITION. SIDE RAILS UP X2. CALL LIGHT WITHIN REACH. WILL CONTINUE TO MONITOR PATIENT.
--- NOTE | 2016-06-01 20:15 | NUR ---
PATIENT REQUESTED ASSISTANCE TO REMOVE BIPAP TO EAT. CHARGE NURSE CLARIZE RN AT BEDSIDE TO ASSIST PATIENT. NASAL CANNULA APPLIED TO MAINTAIN OXYGEN SATURATION. NO SIGNS OF DISTRESS OR SOB NOTED. CALL LIGHT WITHIN REACH. CONTINUE TO MONITOR PATIENT.
[2016-06-01] MEDS: ATORVASTATIN 20 MG TAB PO SCH (20:33)
--- NOTE | 2016-06-01 20:42 | NUR ---
PATIENT TOLERATED SCHEDULED MEDICATIONS WELL. NO SIGNS OF SOB OR DISCOMFORT NOTED. BS IS 199. NOVOLOG INSULIN COVERAGE ADMINISTERED. PATIENT'S NEEDS MET AT THIS TIME. CALL LIGHT WITHIN REACH. CONTINUE TO MONITOR PATIENT.
--- NOTE | 2016-06-01 22:00 | NUR ---
PATIENT ASLEEP IN BED. NO SIGNS OF DISTRESS OR SOB NOTED. HOB AT 30 DEGREES WITH BED IN LOW POSITION. SIDE RAILS UP X2. CALL LIGHT WITHIN PATIENT'S REACH. CONTINUE TO MONITOR PATIENT.
--- NOTE | 2016-06-01 23:15 | NUR ---
PATIENT'S COUSIN AND NEPHEW VISITING PATIENT AT BEDSIDE. NO SIGNS OF DISTRESS OR DISCOMFORT NOTED. CALL LIGHT WITHIN REACH. CONTINUE TO MONITOR PATIENT.
--- NOTE | 2016-06-01 23:26 | NUR ---
PATIENT REQUESTED ICE CHIPS. FOLLOWED UP WITH PATIENT'S REQUEST.
--- NOTE | 2016-06-01 23:42 | NUR ---
RESPIRATORY THERAPIST AT BEDSIDE TO ADMINISTER SCHEDULED BREATHING TX.
[2016-06-02] VITALS (24 sets, daily range): BP systolic 103–175; BP diastolic 45–86
--- NOTE | 2016-06-02 02:10 | NUR ---
PATIENT REQUESTED ICED WATER. FOLLOWED UP WITH PATIENT'S REQUEST. PATIENT REQUESTED EXTRA BLANKET AND PILLOW. FOLLOWED UP WITH PATIENT'S REQUEST. ALL NEEDS MET AT THIS TIME. CALL LIGHT WITHIN REACH. CONTINUE TO MONITOR PATIENT.
[2016-06-02] MEDS: IPRATROPIUM 0.02% 0.5 MG/2.5 ML NEBU INH SCH ×6 (03:40→23:22)
[2016-06-02] MEDS: ALBUTEROL 0.083% 2.5 MG/3 ML NEBU INH SCH ×6 (03:40→23:22)
--- NOTE | 2016-06-02 03:59 | NUR ---
RESPIRATORY THERAPIST AT BEDSIDE.
--- NOTE | 2016-06-02 04:25 | NUR ---
PATIENT REQUESTED TO REMOVE BIPAP. APPLIED NASAL CANNULA AT 4LPM. CONTINUE TO MONITOR PATIENT.
--- NOTE | 2016-06-02 04:30 | NUR ---
OFFERED MORNING CARE TO PATIENT. PATIENT REFUSED MORNING CARE AT THIS TIME AND REQUESTED TO HAVE IT DONE "WHEN IT IS WARMER." CALL LIGHT WITHIN REACH. CONTINUE TO MONITOR PATIENT.
--- NOTE | 2016-06-02 04:45 | NUR ---
EXPLAINED INDICATIONS AND BENEFITS OF SCDS TO PATIENT. PATIENT VERBALIZED UNDERSTANDING. SCDS IN PLACE. CONTINUE TO MONITOR PATIENT.
--- NOTE | 2016-06-02 05:10 | NUR ---
HYDROTREATER OPERATOR AT BEDSIDE FOR SCHEDULED AM LAB DRAWS.
--- NOTE | 2016-06-02 06:20 | NUR ---
PATIENT REQUESTED TO TAKE OFF BIPAP. APPLIED NASAL CANNULA AT 4LPM. CONTINUE TO MONITOR PATIENT.
[2016-06-02] MEDS: BLOOD GLUCOSE MONITORING 1 DEV DEV FS SCH ×4 (06:27→20:30)
[2016-06-02] MEDS: INSULIN ASPART SLIDING SCALE 100 UNITS/ML VIAL SUBQ PRN ×4 (06:30→20:38)
--- NOTE | 2016-06-02 06:55 | NUR ---
REC'D PT ON ZAIN V60 BIPAP SETTINGS 20/8 RR 24 FIO2 35% ALARMS ON AND FUNCTIONING PROPERLY, AMBU BAG AT SIDE OF BIPAP AND BIPAP IS PLUGGED INTO RED OUTLET, I\L TX GIVEN WITH ALBUTEROL 2.5MG AND ATROVENT 0.5 MG WITH NO ADVERSE REACTION POST TX, B\S ARE DIMINISHED BILATERALLY, PT IS WEARING LARGE FACE MASK AND SKIN INTEGRITY IS INTACT, PT IS SLEEPING WITH NO SIGNS OF DISTRESS NOTED AT THIS TIME
--- NOTE | 2016-06-02 07:15 | NUR ---
PATIENT SLEEPING IN BED WITH BIPAP. NO S/S OF SOB OR RESPIRATORY DISTRESS NOTED. ALL NEEDS ATTENDED TO DURING SHIFT. ENDORSED CONTINUITY OF CARE TO CLIFF PLASENCIA.
--- NOTE | 2016-06-02 07:40 | NUR ---
RECEIVED PT FROM ADAMS HOGAN COOK RESTAURANT. PT ASLEEP, SIMPLY AWAKEN WITH INITIAL ASSESSMENT. PT ALERT AND ORIENTED X4. PT ON BIPAP WITH SETTING: FIO2=35%, I/E 20/8, RATE 24. NO SOB/WOB. RESP PATTERN SYMMETRICAL. PT LUNGS SOUND CLEAR AND DIMINISHED TO BASES ON AUSCULTATION. NO COUGHING. SINUS RHYTHM ON SENIOR ENGINEERING TECHNICIAN. PT HAS PULSES BUE AND BLE, NORMAL STRENGTH NOTED. CAP REFILL < 3 SECONDS. S1S2. GENERALIZED NON PITTING EDEMA. PT HAS IV CATHS #22 AT LEFT HAND AND #24 AT RIGHT HAND, SALINE LOCKED, FREELY FLUSHED, NO IV SITE COMPLICATIONS. THE DRESSINGS DRY AND INTACT. SCD'S ON PROPHYLAXIS. ABDOMEN SOFT, NON DISTENTION, NON TENDER TO TOUCH. PT HAS CARDIAC DIET PER ORDERED. NO N/V. ACTIVE BOWEL SOUND WITH ALL QUADRANTS. PT HAS PICKETT CATH IN PLACE, DRAINING BY GRAVITY WITH MODERATE AMOUNT OF CLEAR YELLOW URINE. NO BLADDER DISTENTION. SKIN DRY AND WARM TO TOUCH, NON INTACT (SEE WOUND ASSESSMENT). PT ABLE TO TURN SELF WITH NO DIFFICULTY. BEDSIDE COMMODE PRIVILEGE. AFEBRILE. DENIED PAIN. SAFETY MEASURE IMPLEMENTED. FALL RISK, PRESSURE ULCER, AND ASPIRATION PRECAUTIONS. CONTINUE COLLABORATING WITH INTERDISCIPLINARY HEALTH BLEND TECHNICIAN, CARRYING OUT MD ORDER(S), UPDATING POC NEEDED, AND PERFORMING PT SAFETY ROUNDING. Addendum: 06/02/16 at 0950 by Amarjit Cm RN EDIT PT HAS IV CATH #22 AT LEFT THUMB AND #20 AT RIGHT HAND, SALINE LOCKED, FREELY FLUSHED, NO IV SITE COMPLICATIONS. Addendum: 06/02/16 at 1759 by Amarjit Cm RN EDIT PT LUNGS SOUND CRACKLES AT UPPER AND LOWER RIGHT LOBE AND DIMINISHED UPPER AND LOWER LEFT LOBE ON AUSCULTATION Addendum: 06/03/16 at 0724 by Amarjit Cm RN EDIT ABDOMEN LARGE IN SIZE ACCORDING TO BMI: 39.2 KG/M2
--- NOTE | 2016-06-02 08:48 | NUR ---
BIPAP CHECK, PT IS SLEEPING WITH NO SIGNS OF DISTRESS NOTED AT THIS TIME
--- NOTE | 2016-06-02 09:03 | NUR ---
PT REFUSED ABG AT THIS TIME ERINN CORONADO NOTIFIED
--- NOTE | 2016-06-02 09:23 | NUR ---
DR. DENISE, IT PORTFOLIO MANAGER PRESENTED IN ICU TO ASSESS PT AND REVIEW PT CHART. UPDATED PT CONDITION NEEDED. WILL FOLLOW UP THE ORDER. Addendum: 06/03/16 at 0943 by Amarjit Cm RN EDIT DR. GLEASON
[2016-06-02] MEDS: INSULIN DETEMIR 100 UNITS/ML 10 ML VIAL SUBQ SCH (09:36)
[2016-06-02] MEDS: ENOXAPARIN 30 MG/0.3 ML SYR SUBQ SCH (09:37)
[2016-06-02] MEDS: methylPREDNISolone SS 40 MG/ML VIAL IVP SCH (09:40)
[2016-06-02] MEDS: CARVEDILOL 12.5 MG TAB PO SCH ×2 (09:41→20:30)
[2016-06-02] MEDS: FUROSEMIDE 40 MG TAB PO SCH ×2 (09:41→12:08)
--- NOTE | 2016-06-02 10:58 | NUR ---
DR. RIVERO, COMMUNITY SERVICE REPRESENTATIVE PRESENTED IN ICU TO ASSESS PT AND REVIEW PT CHART. UPDATED PT CONDITION NEEDED. WILL FOLLOW UP THE ORDER.
--- NOTE | 2016-06-02 11:12 | NUR ---
BIPAP CHECK, I\L TX GIVEN WITH ALBUTEROL 2.5MG AND ATROVENT 0.5MG WITH NO ADVERSE REACTION POST TX, B\S ARE DIMINISHED AND FAMILY MEMBERS AT BEDSIDE
[2016-06-02] MEDS ORDERED: ACETYLCYSTEINE 10% (100 MG/ML) 100 MG/ML VIAL INH SCH ×2 (11:20→21:00)
--- NOTE | 2016-06-02 11:55 | NUR ---
PT DENIED TO HAVE CT SCAN AT THIS TIME. PT VERBALIZED HAVING HARD TIME BREATHING AND WANTED TO TAKE SOME REST.
--- NOTE | 2016-06-02 12:02 | NUR ---
ASSISTED PT OUT OF THE BED ON BEDSIDE COMMODE. DENIED LIGHTHEADED. PLACED O2 4L VIA NC ON. SOONER AFTER PT HAD SOB, PLACED BIPAP BACK ON STAT.
--- NOTE | 2016-06-02 12:11 | NUR ---
PT TRANSPORTED TO HAVE CT SCAN AT CHEST W/O CONTRACT PER ORDERED BY ICU BED, ACCOMPANIED BY RN, RT, AND RADIAL DRILL PRESS SET UP OPERATOR. ATTACHED PT WITH PORTABLE TECHNOLOGY APPLICATIONS CONSULTANT AND O2 4L VIA NC.
--- NOTE | 2016-06-02 13:20 | NUR ---
bipap check, pt transferred to ct for scan of the chest pt was place on 35%venti mask and at 1330 back to icu 5 and placed back on bipap with same settings Addendum: 06/02/16 at 1409 by Estephanie Romero RT PT ALSO REFUSED TO HAVE CPT DONE AT THIS TIME
--- NOTE | 2016-06-02 13:22 | NUR ---
TRANSFERRED PT BACK TO ICU BED 5 BY ICU BED, ACCOMPANIED BY RN, RT, AND INDUSTRIAL GAS SERVICE HELPER. ATTACHED PT WITH ICU MONITOR'S WIRES, AND BIPAP PLACED BACK ON BY RT. PT DENIED SOB, LIGHTHEADED, OR PAIN.
--- NOTE | 2016-06-02 13:30 | NUR ---
PT REFUSED SCD, EVEN EXPLAINED THE IMPORTANCE OF SCD'S ON PROPHYLAXIS.
--- NOTE | 2016-06-02 15:21 | NUR ---
BIPAP CHECK, I\L TX GIVEN WITH ALBUTEROL 2.MG AND ATROVENT 0.5MG WITH NO ADVERSE REACTION POST TX B\S ARE DIMINISHED AND PT IS SLEEPING
--- NOTE | 2016-06-02 16:59 | NUR ---
bipap check, pt is resting with no signs of distress noted at this time
[2016-06-02] MEDS: ACETYLCYSTEINE 10% (100 MG/ML) 100 MG/ML VIAL INH SCH (18:42)
--- NOTE | 2016-06-02 19:13 | NUR ---
HANDED OF CONTINUITY OF CARE TO ADAMS HOGAN MEAT BONER AND SLICER. PT STILL ON BIPAP WITH THE SAME RATE, NO SOB AT THIS TIME. AFEBRILE. DENIED PAIN. ADDRESSED ON EPISODE OF SOB ON EXERTION AND US GUIDED THORACENTESIS AT RIGHT LUNG WITH DRAINAGE WILL BE PERFORMED TOMORROW.
--- NOTE | 2016-06-02 19:15 | NUR ---
RECEIVED BEDSIDE REPORT FROM CLIFF PLASENCIA. PATIENT IS RESTING IN BED RECEIVING OXYGEN THERAPY VIA BIPAP. CRACKLES HEARD UPON AUSCULTATION ON RIGHT SIDE, BUT DIMINISHED BREATH SOUNDS HEARD ON LEFT SIDE. BOWEL SOUNDS ARE ACTIVE. BIPAP SETTINGS ARE FOLLOWS I/E 20/8, RATE 24, FIO2 35%. RESPIRATORY THERAPIST AT BEDSIDE ADMINISTERING SCHEDULED BREATHING TREATMENT. NO SIGNS OF SHORTNESS OF BREATH AT THIS TIME. VITALS ARE WNL. NO COMPLAINTS OF PAIN OR DISCOMFORT FROM PATIENT AT THIS TIME. THERE IS A #20 IN THE RIGHT HAND SALINE LOCK AND A #22 IN THE LEFT THUMB SALINE LOCK. BOTH SITES ARE DRY AND INTACT. THERE IS A PICKETT CATHETER PRESENT WITH MODERATE AMOUNT OF CLEAR YELLOW URINE PRESENT. PATIENT'S NEEDS MET AT THIS TIME. HOB AT 30 DEGREES WITH BED IN LOW POSITION. SIDE RAILS UP X2. CALL LIGHT WITHIN REACH. WILL CONTINUE TO MONITOR PATIENT.
--- NOTE | 2016-06-02 20:20 | NUR ---
PATIENT REQUESTED ICED WATER. PROVIDED PATIENT WITH 1 CUP OF ICED WATER. PATIENT'S NEEDS MET AT THIS TIME. CONTINUE TO MONITOR PATIENT.
[2016-06-02] MEDS: ATORVASTATIN 20 MG TAB PO SCH (20:30)
--- NOTE | 2016-06-02 20:30 | NUR ---
TOLERATED SCHEDULED MEDICATIONS WELL. BLOOD SUGAR IS 346. PROVIDED NOVOLOG INSULIN COVERAGE BASED PER SLIDING SCALE. PATIENT'S NEEDS MET AT THIS TIME. CALL LIGHT WITHIN REACH. CONTINUE TO MONITOR.
--- NOTE | 2016-06-02 22:30 | NUR ---
PATIENT ASLEEP IN BED. NO SIGNS OF SOB NOTED. CALL LIGHT WITHIN REACH. CONTINUE TO MONITOR PATIENT.
--- NOTE | 2016-06-02 23:05 | NUR ---
PATIENT REQUESTED ICED WATER AND SALTINES. PROVIDED 1 CUP OF ICED WATER AND 3 PACKS OF SALTINE CRACKERS. PATIENT'S NEEDS MET AT THIS TIME. CONTINUE TO MONITOR PATIENT.
[2016-06-03] VITALS (22 sets, daily range): BP systolic 120–182; BP diastolic 53–88
--- NOTE | 2016-06-03 00:48 | NUR ---
PATIENT ASLEEP IN BED. VITALS ARE STABLE. NO S/S OF SOB NOTED. HOB AT 30 DEGREES WITH BED IN LOW POSITION. CALL LIGHT WITHIN REACH. CONTINUE TO MONITOR.
--- NOTE | 2016-06-03 02:45 | NUR ---
PATIENT ASLEEP IN BED. NO S/S OF RESPIRATORY DISTRESS NOTED. CONTINUE TO MONITOR.
[2016-06-03] MEDS: ALBUTEROL 0.083% 2.5 MG/3 ML NEBU INH SCH ×6 (03:18→22:46)
[2016-06-03] MEDS: IPRATROPIUM 0.02% 0.5 MG/2.5 ML NEBU INH SCH ×6 (03:18→22:46)
--- NOTE | 2016-06-03 04:06 | NUR ---
PATIENT REQUESTED CRACKERS AND WATER. PROVIDED 1 CUP OF ICED WATER AND 2 PACKS OF SALTINES. OFFERED MORNING CARE TO PATIENT. PATIENT REFUSED MORNING CARE AT THIS TIME STATING "I GOT A BED BATH EARLIER TODAY." PATIENT'S NEEDS MET AT THIS TIME. CALL LIGHT WITHIN REACH. CONTINUE TO MONITOR PATIENT.
--- NOTE | 2016-06-03 05:10 | NUR ---
PIPE FITTER SUPERVISOR MAINTENANCE AT BEDSIDE FOR SCHEDULED MORNING LAB DRAWS.
[2016-06-03] MEDS: BLOOD GLUCOSE MONITORING 1 DEV DEV FS SCH ×5 (06:33→20:33)
[2016-06-03] MEDS: INSULIN ASPART SLIDING SCALE 100 UNITS/ML VIAL SUBQ PRN ×4 (06:35→20:14)
[2016-06-03] MEDS: ACETYLCYSTEINE 10% (100 MG/ML) 100 MG/ML VIAL INH SCH ×2 (06:49→18:53)
--- NOTE | 2016-06-03 06:50 | NUR ---
RECEIVED PT ON HASTINGS V60 ON ST 20\8 RR 24 FIO2 35 ALARMS ARE ON AND FUNCTIONAL PT IN HF WEARING F\F MASK SIZE LG BS DIMINISHED PT AWOKE REFUSES CPT I\L HHN GIVEN WITH 2.5 MG ALBUTEROL AND 0.6 MG ATROVENT AND 2 ML 10 MUCOMYST BIAPA PLUGGED INTO RED OUTLET
--- NOTE | 2016-06-03 07:10 | NUR ---
PATIENT SLEEPING IN BED. NO SIGNS OF SOB NOTED. ALL NEEDS ATTENDED TO DURING SHIFT. ENDORSED CONTINUITY OF CARE TO CLIFF PLASENCIA.
--- NOTE | 2016-06-03 07:20 | NUR ---
RECEIVED PT FROM ADAMS HOGAN CLINIC SCHEDULER. PT ASLEEP, SIMPLY AWAKEN WITH INITIAL ASSESSMENT. PT ALERT AND ORIENTED X4. PT ON BIPAP WITH SETTING: FIO2=35%, I/E: 20/8, RATE 24. NO RESP DISTRESS/SOB/WOB. RESP PATTERN UNLABORED. PT LUNGS SOUND CRACKLES AT UPPER AND LOWER RIGHT LOBE AND DIMINISHED THROUGHOUT UPPER AND LOWER LEFT LOBE ON AUSCULTATION. INTERMITTENT COUGHING WITH NO SPUTUM. SINUS RHYTHM ON FASHION CONSULTANT SALES. PT HAS PULSES BUE AND BLE, NORMAL STRENGTH NOTED. CAP REFILL < 3 SECONDS. S1S2. NO HEART MURMUR. NO JVD. NON PITTING GENERALIZED EDEMA. PT HAS IV CATH #22 AT LEFT THUMB AND #20 AT RIGHT HAND, SALINE LOCKED, FREELY FLUSHED, NO IV SITE COMPLICATIONS. THE DRESSINGS DRY AND INTACT. PT REFUSED SCD'S ON PROPHYLAXIS. ABDOMEN SOFT, NON TENDER TO TOUCH, LARGE IN SIZE ACCORDING TO BMI: 39.2 KG/M2. PT HAS CARDIAC DIET, 45G CCHO, AND RENAL K2 GRAMS PER ORDERED. NO N/V. ACTIVE BOWEL SOUND WITH ALL QUADRANTS. PT HAS PICKETT CATH IN PLACE, DRAINING BY GRAVITY WITH MODERATE AMOUNT OF CLEAR YELLOW URINE. NO BLADDER DISTENTION. SKIN DRY AND WARM TO TOUCH, SCABS AT BLE NOTED. PT ABLE TO TURN SELF WITH NO DIFFICULTY. BEDSIDE COMMODE PRIVILEGE. AFEBRILE. DENIED PAIN. SAFETY MEASURE IMPLEMENTED. FALL RISK, PRESSURE ULCER, AND ASPIRATION PRECAUTIONS. CONTINUE COLLABORATING WITH INTERDISCIPLINARY HEALTH TEAM, FOLLOWING UP AND CARRYING OUT MD ORDER(S), UPDATING POC NEEDED, AND PERFORMING PT SAFETY ROUNDING.
--- NOTE | 2016-06-03 08:25 | NUR ---
PAGED DR. GLEASON, ARTIST SUSPECT REGARDING PT K+ 5.7
[2016-06-03] MEDS ORDERED: SODIUM POLYSTYRENE 15 GM/60 ML UDBTL PO SCH (08:38)
--- NOTE | 2016-06-03 08:38 | NUR ---
DR. GLEASON RETURNED CALL TO CONFIRM, RECEIVED ORDER OF KAYEXALATE 60MG PO ONCE. Addendum: 06/03/16 at 0853 by Amarjit Cm RN EDIT KAYEXALATE 60G PO ONCE
[2016-06-03] MEDS: methylPREDNISolone SS 40 MG/ML VIAL IVP SCH (08:50)
[2016-06-03] MEDS: CARVEDILOL 12.5 MG TAB PO SCH ×2 (08:51→20:07)
[2016-06-03] MEDS: FUROSEMIDE 40 MG TAB PO SCH ×2 (08:52→14:48)
[2016-06-03] MEDS: INSULIN DETEMIR 100 UNITS/ML 10 ML VIAL SUBQ SCH (08:55)
--- NOTE | 2016-06-03 09:01 | NUR ---
BIPAP CHECK BS [facility]IN[facility]
--- NOTE | 2016-06-03 09:41 | NUR ---
DR. GLEASON, LOAN EXAMINER PRESENTED IN ICU TO ASSESS PT AND REVIEW PT CHART. UPDATED PT CONDITION NEEDED. WILL FOLLOW UP THE ORDER.
[2016-06-03] MEDS: FERRIC GLUCONATE 125 MG in NACL 0.9% 100 ML IV SCH (10:59)
--- NOTE | 2016-06-03 11:49 | NUR ---
DR. RIVERO, IDENTIFICATION CLERK PRESENTED IN ICU TO ASSESS PT AND REVIEW PT CHART. UPDATED PT CONDITION NEEDED. WILL FOLLOW UP THE ORDER.
--- NOTE | 2016-06-03 12:42 | NUR ---
BIPAP CHECK BS DIMINISHED PT TO HAVE BEDSIDE PROCEDURE
--- NOTE | 2016-06-03 13:11 | NUR ---
DR. LUTHER, IR PRESENTED AT PT BEDSIDE TO PERFORM US GUIDED THORACENTESIS WITH DRAINAGE TUBE PER DR. RIVERO ORDERED. RADIO TECH, RN, AND RT AT BEDSIDE. SET UP PRE/POST VITALS PROCEDURE.
--- NOTE | 2016-06-03 13:32 | NUR ---
PT HAVING BEDSIDE PROCEDURE NO CPT DONE
--- NOTE | 2016-06-03 14:10 | NUR ---
US GUIDED THORACENTESIS DONE BY DR. LUTHER, IR. SENT PLEURAL FLUID SAMPLE TO LAB PER DR. RIVERO ORDERED.
--- NOTE | 2016-06-03 14:55 | NUR ---
PAGED DR. RIVERO, PARKING OFFICER REGARDING XR CHEST REPORT AFTER THORACENTESIS.
--- NOTE | 2016-06-03 15:15 | NUR ---
PT REFUSES HHN AND BIPAP AT HIS TIME 4L OXYMIZER PLACED NO DISTRESS SPO2 96
--- NOTE | 2016-06-03 17:13 | NUR ---
DR. LORENZANA, SCREENING UNIT REGISTERED NURSE WHO IS STRIKE OPERATIONS OFFICER FOR DR. RIVERO, RETURNED CALL. NOTIFIED HIM REGARDING XR CHEST REPORT AFTER RIGHT THORACENTESIS PROCEDURE. UPDATED PT CONDITION NEEDED. WILL FOLLOW UP THE ORDER.
--- NOTE | 2016-06-03 18:06 | NUR ---
REPLACED BIPA WITH PREVIOUS SETTINGS GEL UNDER MASK Addendum: 06/03/16 at 1807 by Jennifer Vizcarra RT BIPAP
--- NOTE | 2016-06-03 19:08 | NUR ---
BIPAP 20/8 FIO2 35 NO DISTRESS SLEEPING BR UP ORDERS FOR TODAY DONE PICKETT IN IV IN REFUSED SCD O2 SAT 99, RR 24
--- NOTE | 2016-06-03 19:11 | NUR ---
HANDED OF CONTINUITY OF CARE TO ADAMS DANIEL WAREHOUSE TRAINER. PT ASLEEP COMFORTABLY. BIPAP BACK ON WITH SAME SETTING, NO SOB. NO SIGN OF DISCOMFORT.
--- NOTE | 2016-06-03 19:45 | NUR ---
ON 4L OXYMIZER, TALKING TO FAMILY, O2 SAT 99
[2016-06-03] MEDS: ATORVASTATIN 20 MG TAB PO SCH (20:06)
--- NOTE | 2016-06-03 20:34 | NUR ---
BS GOING DOWN AFTER INSULIN. WILL RECHECK.
[2016-06-03] MEDS ORDERED: INSULIN DETEMIR 100 UNITS/ML 10 ML VIAL SUBQ SCH (21:30)
[2016-06-03] MEDS ORDERED: INSULIN HUMAN REGULAR 100 UNITS/ML 10 ML VIAL SUBQ SCH (21:30)
--- NOTE | 2016-06-03 21:30 | NUR ---
DR LORENZANA CALLED FOR BS IN 400S
--- NOTE | 2016-06-03 23:08 | NUR ---
2255 PT OFF BIPAP.. HHNTX GIVEN.. PT WANTS TO WEAR VENTI MASK AT 35% AT THIS TIME. WILL CALL IF NEEDS TO GO BACK ON BIPAP.
[2016-06-04] VITALS (13 sets, daily range): BP systolic 103–176; BP diastolic 45–86
[2016-06-04] MEDS: BLOOD GLUCOSE MONITORING 1 DEV DEV FS SCH ×5 (01:25→20:59)
--- NOTE | 2016-06-04 01:40 | NUR ---
BLOOD SUGAR 210 ON 4L OXYMIZER TURNS SELF, REFUSED ASSISTANCE NOW
[2016-06-04] MEDS: ALBUTEROL 0.083% 2.5 MG/3 ML NEBU INH SCH ×6 (03:11→23:43)
[2016-06-04] MEDS: IPRATROPIUM 0.02% 0.5 MG/2.5 ML NEBU INH SCH ×6 (03:11→23:44)
--- NOTE | 2016-06-04 03:18 | NUR ---
0310 PT WANTED TO GO BACK ON BIPAP. HAVING SOME DIFFICULTY BREATHING. INLINE HHNTX WAS GIVEN
--- NOTE | 2016-06-04 04:15 | NUR ---
ON BIPAP, SLEEPING REFUSED BATH, PER SNUFF BOX FINISHER, REFUSED LAST NIGHT WELL RELUCTANT TO ALLOW ME TO FURTHER ASSESS SKIN SCDS BACK ON
--- NOTE | 2016-06-04 04:48 | NUR ---
PT HAD LARGE AMOUNT OF SOFT BROWN STOOL. CLEANSED PT AND TOLD HIM I NEED TO CHANGE HIS FITTED SHEET. PT AGREED TO CLEAN HIS BOTTOM BUT REFUSED SPONGE BATH AND REFUSED LINEN CHANGED. WILL FOLLOW UP LATER FOR MORNING CARE. Addendum: 06/05/16 at 0452 by Brayan Prince RN WRONG TIME
--- NOTE | 2016-06-04 05:28 | NUR ---
1563 PT TOOK MASK OFF FROM BIPAP. RN PLACED PT ON 35% VENTI MASK. PT SHOWS NO SOB AT THIS TIME
[2016-06-04] MEDS: INSULIN ASPART SLIDING SCALE 100 UNITS/ML VIAL SUBQ PRN ×4 (06:31→21:04)
[2016-06-04] MEDS: ACETYLCYSTEINE 10% (100 MG/ML) 100 MG/ML VIAL INH SCH ×2 (06:52→20:01)
--- NOTE | 2016-06-04 07:30 | NUR ---
REPORT RECEIVED FROM FREDY .PT IS ON 9L FACE MASK.ALERT ,ORIENTED X3.PT NO CO SHORTNESS OF BREATH.RIGHT WRIST 20 GAUGE SALINE LOCK ,FLUSHABLE AND PATENT.LEFT THUMB 22 GAUGE SALINE LOCK,FLUSHABLE AND PATENT.NSR ON THE MONITOR.PICKETT TO GRAVITY.BILATERAL SCD ON.WILL MONITOR. Addendum: 06/04/16 at 1521 by Leann Dunlap RN RN pls disregard duplicate
--- NOTE | 2016-06-04 07:30 | NUR ---
RECEIVED REPORT FROM FREDY.INITIAL ASSESSMENT DONE TO PATIENT .PT USING FACE MASK WITH 9 LITERS.PT NO CO PAIN NOR SHORTNESS OF BREATH.RIGHT WRIST 20 GAUGE SALINE LOCK FLUSHABLE AND PATENT.LEFT THUMB 22 GAUGE PATENT AND INTACT.NO SIGNS OF INFILTRATION.NSR ON THE MONITOR.PT WITH PICKETT TO GRAVITY.WITH ADEQUATE YELLOW URINE OUTPUT.BILATERAL SCD ON.WILL MONITOR.
--- NOTE | 2016-06-04 08:32 | NUR ---
pt wanted to be placed back on bipap
[2016-06-04] MEDS: CARVEDILOL 12.5 MG TAB PO SCH ×2 (09:18→21:02)
[2016-06-04] MEDS: methylPREDNISolone SS 40 MG/ML VIAL IVP SCH (09:18)
[2016-06-04] MEDS: FUROSEMIDE 40 MG TAB PO SCH ×2 (09:18→12:45)
[2016-06-04] MEDS: INSULIN DETEMIR 100 UNITS/ML 10 ML VIAL SUBQ SCH (09:20)
[2016-06-04] MEDS: FERRIC GLUCONATE 125 MG in NACL 0.9% 100 ML IV SCH (09:38)
[2016-06-04] MEDS: MORPHINE SULFATE 2 MG/ML SYR IVP PRN ×2 (09:39→21:05)
--- NOTE | 2016-06-04 10:00 | NUR ---
INSTRUCTED PATIENT TO BE ON FLUID RESTRICTION DUE TO PT GETTING LASIX.
--- NOTE | 2016-06-04 10:45 | NUR ---
pt was off bipap and on 35% venti mask at time of breathing tx
--- NOTE | 2016-06-04 11:00 | NUR ---
PATIENT ALLOWED SISTER TO GET INFORMATION OVER THE PHONE .RN UPDATED ABOUT PATIENTS CONDITION.PT HAS GOOD APPETITE.PT USING BIPAP AND FACE MASK.
[2016-06-04] MEDS ORDERED: LORazepam 2 MG/ML VIAL IVP PRN (12:55)
--- NOTE | 2016-06-04 13:43 | NUR ---
FAXED CONCURRENT REVIEW TO [facility] [phone] PHONE SACHA [phone]
[2016-06-04] MEDS: PIPER/TAZO 2.25GM/D5W PREMIX 50 ML IV SCH ×2 (14:06→21:02)
--- NOTE | 2016-06-04 15:18 | NUR ---
pt on bipap, i\l tx given with albuterol 2.5mg and atrovent 0.5mg with no adverse reaction post tx b\s are diminished and pt is sleeping with no signs of distress noted at this time
--- NOTE | 2016-06-04 15:37 | NUR ---
06/04/16 RD FOLLOW UP COMPLETED PLEASE REFER TO NUTRITION PROGRESS NOTE UNDER CARE ACTIVITY FOR ESTIMATED NUTRITION NEEDS. RD RECOMMENDATIONS: 1. CONTINUE CCHO 60GM, CARDIAC, LOW POTASSIUM DIET MEDICALLY APPROPRIATE. 2. RD WILL F/U 3-5 DAYS; MODERATE RISK. LORENE FOX RD
--- NOTE | 2016-06-04 17:05 | NUR ---
AT 1600 PT WAS REMOVED FROM BIPAP AND PLACED ON 35% venti mask by melodie hernandez
--- NOTE | 2016-06-04 19:20 | NUR ---
NO SPUTUM AVAILABLE FROM PATIENT .ENDORSED TO NEXT RN.
--- NOTE | 2016-06-04 19:28 | NUR ---
REPORT GIVEN TO CLARIZE FOR CONTINUITY OF CARE
--- NOTE | 2016-06-04 19:29 | NUR ---
RECEIVED REPORT FROM ERINN ARIZA. PT IS AWAKE, ALERT, ORIENTED X4. PT IS ON 35% VENTI MASK. IV ACCESS ON SALINE LOCK, LEFT THUMB 22G, AND RIGHT WRIST 20G, PATENT, INTACT. RIGHT FOOT NOTED TO HAVE 2ND AND THIRD TOE AMPUTATION. WITH PICKETT CATH IN PLACE, SCDS IN PLACE. BED IN LOW POSITION, SAFETY MEASURE ENSURE, BIPAP AT BEDSIDE. PLAN OF CARE DISCUSSED WITH PATIENT. PT VERBALIZED UNDERSTANDING. WILL CONTINUE TO MONITOR.
--- NOTE | 2016-06-04 19:40 | NUR ---
PT HAD LARGE AMOUNT OF SOFT BROWN STOOL. CLEANSED PT AND TOLD HIM I NEED TO CHANGE HIS FITTED SHEET. PT AGREED TO CLEAN HIS BOTTOM BUT REFUSED SPONGE BATH AND REFUSED LINEN CHANGED. WILL FOLLOW UP LATER FOR MORNING CARE.
--- NOTE | 2016-06-04 20:06 | NUR ---
RT AT BEDSIDE DOING TREATMENT. RT AWARE PT NEEDS SPECIMEN FOR SPUTUM CULTURE.
[2016-06-04] MEDS: ATORVASTATIN 20 MG TAB PO SCH (21:03)
--- NOTE | 2016-06-04 21:30 | NUR ---
PT BACK ON BIPAP PER BIPAP SETTING ORDER.
--- NOTE | 2016-06-04 22:53 | NUR ---
PT BACK TO VENTI MASK AT 35% PER PATIENT'S REQUEST. NO DISTRESS NOTED AT THIS TIME. WILL CONTINUE TO MONITOR. O2 SAT 97%
--- NOTE | 2016-06-04 23:15 | NUR ---
PT ASKS FOR CRACKERS, GIVEN. PT STATED, "I'M HUNGRY."
--- NOTE | 2016-06-04 23:45 | NUR ---
INFORMED PT THAT SPUTUM SAMPLE WAS NEEDED, PT STS HE HAS A PRODUCTIVE COUGH AND WILL TRY TO GIVE A SAMPLE SHORTLY. SPECIMEN CUP LEFT WITH PT AT BEDSIDE.
[2016-06-05] VITALS (13 sets, daily range): BP systolic 147–179; BP diastolic 65–80
--- NOTE | 2016-06-05 00:18 | NUR ---
PT ASLEEP AT THIS TIME. WILL CONTINUE TO MONITOR.
--- NOTE | 2016-06-05 03:15 | NUR ---
PT REQUESTED FOR A SANDWICH, GIVEN. PT STATED, "I'M STARVING."
--- NOTE | 2016-06-05 03:24 | NUR ---
PT FINISHED HIS SANDWICH AND ASLEEP AT THIS TIME.
[2016-06-05] MEDS: ALBUTEROL 0.083% 2.5 MG/3 ML NEBU INH SCH ×6 (03:41→23:00)
[2016-06-05] MEDS: IPRATROPIUM 0.02% 0.5 MG/2.5 ML NEBU INH SCH ×6 (03:41→23:00)
--- NOTE | 2016-06-05 04:53 | NUR ---
PT OFFERED MORNING CARE. PT REFUSED SPONGE BATH AND LINEN CHANGE AGAIN AND STATED, "LET ME SLEEP." CHARGE NURSE AWARE.
[2016-06-05] MEDS: PIPER/TAZO 2.25GM/D5W PREMIX 50 ML IV SCH ×3 (04:57→20:29)
--- NOTE | 2016-06-05 05:09 | NUR ---
RT AT BEDSIDE. PT BACK TO BIPAP PER BIPAP SETTING ORDERED.
--- NOTE | 2016-06-05 05:23 | NUR ---
PT C/O SOB, PLACED BACK ON BIPAP PER PT REQUEST.
--- NOTE | 2016-06-05 05:23 | NUR ---
CENTRAL STERILIZATION TECHNICIAN AT BEDSIDE FOR MORNING LABS.
--- NOTE | 2016-06-05 06:00 | NUR ---
PT STILL REFUSED MORNING CARE.
[2016-06-05] MEDS: BLOOD GLUCOSE MONITORING 1 DEV DEV FS SCH ×4 (06:44→20:38)
[2016-06-05] MEDS: INSULIN ASPART SLIDING SCALE 100 UNITS/ML VIAL SUBQ PRN ×4 (06:45→20:39)
[2016-06-05] MEDS: ACETYLCYSTEINE 10% (100 MG/ML) 100 MG/ML VIAL INH SCH ×2 (06:47→21:10)
--- NOTE | 2016-06-05 06:49 | NUR ---
RECEIVED PT ON HASTINGS V60 ON ST 20\8 RR24 FIO2 35 ALARMS ARE ON AND FUNCTIONAL PT ON LEFT SIDE HF WEARING F\F MASK AWOKE BRIEFLY BS DIMNISHED HHN GIVEN I\KL WITH 2.5 MG ALBUTEROL AND 0.5 MG ATROVENT AND 2 ML 10% MUCOMYST BIPAP PLUGGED INTOP RED OUTLET 5 L OXYMIZER ON AT BEDSIDE Addendum: 06/05/16 at 1130 by Jennifer Vizcarra RT PT REFUSES CPT
[2016-06-05] MEDS ORDERED: PROBIOTIC SCREEN 1 EA MISC MC PRN (07:15)
--- NOTE | 2016-06-05 07:51 | NUR ---
RECEIVED REPORT FROM TULIO PLASENCIA. PT IS SLEEPING AT THE TIME ON O2 AT 3LN/CO2 SAT 98% SKIN MARGA AND WARM ABD SOFT. B/S ACTIVE, BREATH SOUND DIMINISH IV FLUID SITE ONRT WRIST # 20 and rt thump is # 22 hep lock both side dry and intact able TO MOVE ALL EXTREAMITIES HAS BI LATERAL SCD ON PICKETT CATH DRAIN CLEAR LIGHT PEGGY URINE.
--- NOTE | 2016-06-05 07:51 | NUR ---
REPORT GIVEN TO ERINN BUCKLEY FOR CONRTINUITY OF CARE.
[2016-06-05] MEDS: methylPREDNISolone SS 40 MG/ML VIAL IVP SCH (08:35)
[2016-06-05] MEDS: FUROSEMIDE 40 MG TAB PO SCH ×2 (08:36→13:07)
[2016-06-05] MEDS: CARVEDILOL 12.5 MG TAB PO SCH ×2 (08:38→20:29)
[2016-06-05] MEDS: INSULIN DETEMIR 100 UNITS/ML 10 ML VIAL SUBQ SCH (08:42)
--- NOTE | 2016-06-05 09:08 | NUR ---
PT CURRENTLY ON 3L N/C SPO2 98 PT REMOVED BIPAP
--- NOTE | 2016-06-05 10:18 | NUR ---
C/O FEELING NAUSEATED. ZOFRAN 4 MG IVP GIVEN.
[2016-06-05] MEDS: FERRIC GLUCONATE 125 MG in NACL 0.9% 100 ML IV SCH (10:36)
--- NOTE | 2016-06-05 10:45 | NUR ---
NO NAUSEA/ VOMITING NOTED. DOZING ON AND OFF.
--- NOTE | 2016-06-05 11:30 | NUR ---
BL. GLUCOSE 262 REGULAR INSULIN COVER ORDERED,
--- NOTE | 2016-06-05 13:30 | NUR ---
SEEN BY BHAVYA MACIEL AT BEDSIDE, ORDER RECEIVED,
--- NOTE | 2016-06-05 14:27 | NUR ---
FAXED CONCURRENT REVIEW TO [facility] [phone] PHONE SACHA [phone]
--- NOTE | 2016-06-05 15:38 | NUR ---
RECEIVED REPORT FROM ERINN RICHMOND FROM ICU. PT TO ARRIVE TO UNIT AT 1600.
--- NOTE | 2016-06-05 16:20 | NUR ---
TRANSFERRED PT WITH BIPAP AND POX TO 110A 3L N/C PLACED
--- NOTE | 2016-06-05 16:20 | NUR ---
TRANSFER PT TO RM 110 A IN BED PT. CONDITION STABLE DURING TRANSFER. REPORT GIVE TO TEAGAN AT BED SIDE.
--- NOTE | 2016-06-05 16:26 | NUR ---
PT ARRIVED PT UNIT VIA GURNEY. PT AMBULATED TO BED WITH ASSISTANCE. PT IS AAOX4, PT ON 3L NC O2 SAT AT 93%. PICKETT CATHETER IN PLACE. IV TO LEFT HAND #22, AND RIGHT WRIST #20, PATENT AND INTACT. RIGHT FOOT 2ND AND 3RD TO AMPUTATION-HEALED NOTED. NO N/V OR PAIN INDICATED. ALL SAFETY PRECAUTIONS IN PLACE, SIDE RAILSX2, BED IN LOW POSITION, AND CALL LIGHT WITHIN REACH. WILL CONTINUE TO MONITOR.
--- NOTE | 2016-06-05 16:45 | NUR ---
PT BLOOD GLUCOSE AT 299, WILL ADMINISTER INSULIN WHEN FOOD TRAY ARRIVES.
[2016-06-05] MEDS ORDERED: FUROSEMIDE 20 MG TAB PO SCH (17:44)
--- NOTE | 2016-06-05 17:45 | NUR ---
DR MANRIQUE IN TO SEE PT. WILL FOLLOW UP ON ORDERS.
--- NOTE | 2016-06-05 18:05 | NUR ---
HELD LASIX, PER DR MANRIQUE PT TO RECEIVE 60MG PER DAY OF LASIX. PT RECEIVED 80MG OF LASIX TODAY. HELD LASIX PER DR MANRIQUE'S ORDER.
--- NOTE | 2016-06-05 19:15 | NUR ---
ENDORSED CARE TO ERINN HORNER. PT IN STABLE CONDITION.
--- NOTE | 2016-06-05 19:28 | NUR ---
RECEIVED REPORT FROM DANIS Linn RN, AT BEDSIDE. INITIAL ASSESSMENT AND BODY CHECK DONE. PATIENT AAO X 4, ABLE TO FOLLOW COMMAND AND MAKE NEEDS KNOWN AND AMBULATORY WITH BREAST SURGEON. PATIENT CURRENTLY LYING DOWN ON THE BED. NO S/S OF DISTRESS OR SOB NOTED. PATIENT DENIED OF ANY PAIN/DISCOMFORT AT THIS TIME. SKIN WARM/DRY TO TOUCH WITH NORMAL COLOR AND INTACT. NOTED PATIENT HAS RT FOOT 2ND/3RD TOE AMPUTATED/ ALL HEALED AND OPEN TO AIR. PICKETT CATHETER IN PLACE/PATENT AND DRAINING WITH YELLOW/CLEAR URINE TO GRAVITY. DISCUSSED PLAN OF CARE, PAIN MANAGEMENT AND MEDICATION REGIMEN WITH PATIENT AND PATIENT VERBALIZED UNDERSTANDING. PLACED PATIENT ON SAFETY/FALL PRECAUTIONS AND WILL CONTINUE TO MONITOR. CALL LIGHT LEFT WITHIN REACH.
[2016-06-05] MEDS: ATORVASTATIN 20 MG TAB PO SCH (20:29)
[2016-06-05] MEDS: SACCHAROMYCES 250 MG CAP PO SCH (20:29)
--- NOTE | 2016-06-05 21:30 | NUR ---
ADMINISTERED DUE MEDICATIONS MD'S ORDERED WITH EDUCATION GIVEN. PATIENT COMPLYING WITH MEDICATIONS AND CARE. TOLERATED WELL. RT AT BEDSIDE GIVING THE BREATHING TX. HS SNACKS GIVEN WITH ALL NEEDS ATTENDED. KEPT PATIENT IN COMFORTABLE POSITION/WARM AND WILL CONTINUE TO MONITOR.
--- NOTE | 2016-06-05 21:45 | NUR ---
PATIENT'S FAMILY CAME TO VISIT AND BROUGHT SOME FOOD FROM OUTSIDE. EDUCATED PATIENT OF THE TYPE OF DM DIET AND TO BE AWARE OF BLOOD SUGAR LEVEL. PATIENT STATED " OK" AND CONTINUES TO EAT THE FOOD FROM OUTSIDE.
[2016-06-06] VITALS: BP 153/75
--- NOTE | 2016-06-06 00:05 | NUR ---
PT WANTS TO SLEEP, REFUSED HHNTX
--- NOTE | 2016-06-06 00:30 | NUR ---
V/S REMAINED WNL AND NO CHANGE IN CONDITION NOTED. WILL CONTINUE TO MONITOR.
[2016-06-06] MEDS: IPRATROPIUM 0.02% 0.5 MG/2.5 ML NEBU INH SCH ×7 (00:38→22:16)
[2016-06-06 04:00] VITALS: BP 146/64
[2016-06-06] MEDS: PIPER/TAZO 2.25GM/D5W PREMIX 50 ML IV SCH ×3 (04:16→21:55)
[2016-06-06] MEDS: ALBUTEROL 0.083% 2.5 MG/3 ML NEBU INH SCH ×6 (04:26→22:16)
--- NOTE | 2016-06-06 04:27 | NUR ---
PATIENT RESTED WELL. V/S REMAINED WNL AND NO APPARENT DISTRESS NOTED. RT AT BEDSIDE GIVING THE BREATHING TX. WILL CONTINUE TO MONITOR.
[2016-06-06] MEDS: BLOOD GLUCOSE MONITORING 1 DEV DEV FS SCH ×4 (05:31→21:13)
[2016-06-06] MEDS: INSULIN ASPART SLIDING SCALE 100 UNITS/ML VIAL SUBQ PRN ×4 (05:32→21:12)
[2016-06-06] MEDS: ACETYLCYSTEINE 10% (100 MG/ML) 100 MG/ML VIAL INH SCH ×2 (07:08→19:18)
--- NOTE | 2016-06-06 07:20 | NUR ---
ENDORSED PLAN OF CARE TO DANIS Linn RN, AT BEDSIDE. PATIENT RESTED WELL THROUGHOUT THE SHIFT AND REMAINED IN STABLE CONDITION WITHOUT APPARENT DISTRESS NOTED.
--- NOTE | 2016-06-06 07:21 | NUR ---
RECEIVED REPORT FROM ERINN HORNER. PT IS AAOX4. PT ON 3L NC, O2 SAT AT 93%. PICKETT CATHETER IN PLACE. IV TO RIGHT WRIST #20, PATENT AND INTACT. RIGHT LEG HEALED SCAB NOTED. NO N/V OR PAIN INDICATED. ALL SAFETY PRECAUTIONS IN PLACE, SIDE RAILSX2, BED IN LOW POSITION, AND CALL LIGHT WITHIN REACH. WILL CONTINUE TO MONITOR.
[2016-06-06 08:00] VITALS: BP 156/70
[2016-06-06] MEDS: methylPREDNISolone SS 40 MG/ML VIAL IVP SCH (09:09)
[2016-06-06] MEDS: CARVEDILOL 12.5 MG TAB PO SCH ×2 (09:09→20:55)
[2016-06-06] MEDS: FUROSEMIDE 40 MG TAB PO SCH (09:09)
[2016-06-06] MEDS: SACCHAROMYCES 250 MG CAP PO SCH ×2 (09:09→20:54)
[2016-06-06] MEDS: INSULIN DETEMIR 100 UNITS/ML 10 ML VIAL SUBQ SCH ×2 (09:15→20:58)
--- NOTE | 2016-06-06 09:17 | NUR ---
PT TOLERATED MEDS WELL. BP 150/82, HR 73. WILL CONTINUE TO MONITOR.
[2016-06-06] MEDS: FERRIC GLUCONATE 125 MG in NACL 0.9% 100 ML IV SCH (10:27)
--- NOTE | 2016-06-06 10:32 | NUR ---
PT TOLERATED MEDS WELL. WILL CONTINUE TO MONITOR.
--- NOTE | 2016-06-06 10:41 | NUR ---
FAXED CONCURRENT REVIEW TO [facility] [phone] PHONE SACHA [phone]
--- NOTE | 2016-06-06 10:43 | NUR ---
RESPIRATORY THERAPIST IN TO SEE PT. PT REQUESTING BIPAP. WILL FOLLOW UP.
--- NOTE | 2016-06-06 11:00 | NUR ---
PT REFUSED AM CARE AND HYGIENE. WILL REATTEMPT IN THE AFTERNOON.
--- NOTE | 2016-06-06 11:10 | NUR ---
PT CALLED SOB PT PLACED ON BIPAP WITH SETTINGS CHARTED PT AWAKE ALERT PAMELA BIPAP WELL WILL CONTINUE TO MONITOR
--- NOTE | 2016-06-06 11:45 | NUR ---
PT REMOVED BIPAP SAID HE IS DONE WITH IT FOR NOW PLAACED PT ON 3LPM NC SPO2 .98
[2016-06-06 11:49] VITALS: BP 137/76
--- NOTE | 2016-06-06 12:10 | NUR ---
PT TOLERATED MEDS WELL. WILL CONTINUE TO MONITOR. BLOOD GLUCOSE 311, ADMINISTERED 8 UNITS OF INSULIN ORDERED. WILL CONTINUE TO MONITOR.
--- NOTE | 2016-06-06 13:20 | NUR ---
PT SLEEPING AT THIS TIME
--- NOTE | 2016-06-06 14:00 | NUR ---
PT RESTING WITH NO DISTRESS NOTED AT THIS TIME.
[2016-06-06 16:00] VITALS: BP 155/70
--- NOTE | 2016-06-06 16:00 | NUR ---
VSS. WILL CONTINUE TO MONITOR.
[2016-06-06] MEDS ORDERED: FUROSEMIDE 20 MG TAB PO SCH (17:00)
--- NOTE | 2016-06-06 17:13 | NUR ---
BLOOD GLUCOSE 357, ADMINISTERED 10 UNITS OF INSULIN ORDERED. PT TOLERATED WELL.
--- NOTE | 2016-06-06 17:50 | NUR ---
PT EATING DINNER WITH NO DISTRESS NOTED AT THIS TIME.
--- NOTE | 2016-06-06 19:19 | NUR ---
ENDORSED CARE TO ELBA RIOS. PT IN STABLE CONDITION.
--- NOTE | 2016-06-06 19:20 | NUR ---
RECD. RESTING IN BED, AWAKE, A/OX4, OBESE. RESPIRATION EVEN AND UNLABORED. ON 02 AT 3 LITERS VIA N/C, SATURATING AT 93%. F/C PATENT DRAINING CLEAR YELLOW URINE. ON BILATERAL LEG SEQUENTIALS. PLAN OF CARE FOR THE SHIFT DISCUSSED. VERBALIZED UNDERSTANDING. DENIES PAIN 0/10.
[2016-06-06 20:00] VITALS: BP 156/71
--- NOTE | 2016-06-06 20:00 | NUR ---
Patient's Plan of Care was discussed and reviewed with ELBA: BLANCA.
[2016-06-06] MEDS: ATORVASTATIN 20 MG TAB PO SCH (20:54)
--- NOTE | 2016-06-06 22:00 | NUR ---
WANTS BIPAP TO BE PUT ON, WILL CALL RT.
--- NOTE | 2016-06-06 22:18 | NUR ---
GOT CALL FROM BLANCA RN THAT PATIENT WANTS THE BIPAP NOW. BIPAP IS ON WITH SETTINGS 12/6,12,30%. BIPAP IS PLUGGED INTO RED OUTLET. ALARMS ARE AUDIBLE. SKIN INTACT. AMBU BAG AT BEDSIDE. SAT IS 97% HR 87. PT IS RESTING COMFORTABLY. TX GIVEN. WILL CONTINUE TO MONITOR.
--- NOTE | 2016-06-06 22:30 | NUR ---
TOOK OFF HIS MASK FROM BIPAP, COMPLAINED OF SOB. RT CAME AND PUT ON 02 CANNULA AT 3 LITERS. 02 SAT - 96%.
--- NOTE | 2016-06-06 22:45 | NUR ---
SLEEPING ON HIS RIGHT SIDE COMFORTABLY, NO SOB, 02 SAT - 96% ON 02 CANNULA AT 3 LITERS.
--- NOTE | 2016-06-06 23:25 | NUR ---
GOT CALL FROM ERINN RIOS THAT PT IS SOB. UPON ARRIVAL PT HAD HIS BIPAP MASK OFF AND DIDNT WANT TO WEAR IT OF NOW. NC IS NOW ON 3L SAT 94%. ERINN RIOS AT BEDSIDE. WILL CONTINUE TO MONITOR.
[2016-06-07] VITALS: BP 147/90
--- NOTE | 2016-06-07 02:57 | NUR ---
PT REFUSED TO PUT BIPAP BACK AND REFUSED HIS BREATHING TX. ERINN RIOS AWARE.
[2016-06-07] MEDS: IPRATROPIUM 0.02% 0.5 MG/2.5 ML NEBU INH SCH ×6 (03:00→22:49)
[2016-06-07] MEDS: ALBUTEROL 0.083% 2.5 MG/3 ML NEBU INH SCH ×6 (03:00→22:48)
--- NOTE | 2016-06-07 04:55 | NUR ---
WANTS BIPAP TO BE PUT ON. INFORMED RT.
[2016-06-07] MEDS: PIPER/TAZO 2.25GM/D5W PREMIX 50 ML IV SCH ×3 (05:08→20:43)
--- NOTE | 2016-06-07 05:42 | NUR ---
KEEP ON ASKING FOR FOOD, REMINDED HE IS DIABETIC,
[2016-06-07 05:48] VITALS: BP 156/72
--- NOTE | 2016-06-07 06:00 | NUR ---
RESTING IN BED, ON BIPAP AGAIN.
[2016-06-07] MEDS: BLOOD GLUCOSE MONITORING 1 DEV DEV FS SCH ×4 (06:02→20:42)
[2016-06-07] MEDS: INSULIN ASPART SLIDING SCALE 100 UNITS/ML VIAL SUBQ PRN ×4 (06:47→20:37)
--- NOTE | 2016-06-07 07:00 | NUR ---
PT REMOVED HIMSELF FROM BIPAP AND 3 LPM NC PT SLEEPING AT THIS TIME
[2016-06-07] MEDS: ACETYLCYSTEINE 10% (100 MG/ML) 100 MG/ML VIAL INH SCH ×2 (07:11→19:50)
--- NOTE | 2016-06-07 07:17 | NUR ---
ENDORSE TO AM RN FOR CONTINUITY OF CARE.
--- NOTE | 2016-06-07 07:18 | NUR ---
RECEIVED PT FROM BLANCA ARREOLA, AWAKE WHILE LYING ON BED. PT ON BIPAP 3LPM NC, NO S/S OF RESPIRATORY DISCOMFORT. WITH IV ACCESS IN RIGHT WRIST #20 ON SALINE LOCK INTACT AND PATENT, PICKETT CATHETER DRAINING YELLOW URINE. WITH HEALED AMPUTATION ON 2ND AND 3RD TOE ON RIGHT FOOT. DISCUSSED PLAN OF CARE, PT VERBALIZED UNDERSTANDING. CALL LIGHT WITHIN REACH, WILL CONTINUE TO MONITOR.
--- NOTE | 2016-06-07 07:44 | NUR ---
RECIVED PT ON BIPAP WITH SETTINGS CHARTED PT AWAKE ALERT ANXIOUS BREATH SOUNDS PRESENT BILAT WITH DIM COARSE BREATH SOUNDS BIPAP LUGGED INTO RED OUTLET AMBU BAG AT BEDSIDE
[2016-06-07 08:00] VITALS: BP 152/77
[2016-06-07] MEDS: CARVEDILOL 12.5 MG TAB PO SCH ×2 (09:22→20:43)
[2016-06-07] MEDS: FUROSEMIDE 40 MG TAB PO SCH (09:22)
[2016-06-07] MEDS: SACCHAROMYCES 250 MG CAP PO SCH ×2 (09:23→20:44)
[2016-06-07] MEDS: methylPREDNISolone SS 40 MG/ML VIAL IVP SCH (09:23)
--- NOTE | 2016-06-07 09:25 | NUR ---
PT ASLEEP BUT EASILY AWAKEN. DUE MEDS GIVEN, PT TOLERATED WELL. ALL NEEDS MET AT THIS TIME. CALL LIGHT WITHIN REACH, WILL CONTINUE TO MONITOR.
[2016-06-07] MEDS: INSULIN DETEMIR 100 UNITS/ML 10 ML VIAL SUBQ SCH ×2 (09:32→20:38)
[2016-06-07] MEDS: FERRIC GLUCONATE 125 MG in NACL 0.9% 100 ML IV SCH (10:47)
--- NOTE | 2016-06-07 10:51 | NUR ---
PT AWAKE WITH RELATIVES AT BEDSIDE. NO S/S OF DISTRESS, ON O2 3LPM. ALL NEEDS MET AT THIS TIME. CALL LIGHT WITHIN REACH, WILL CONTINUE TO MONITOR
--- NOTE | 2016-06-07 11:13 | NUR ---
CM NOTE CONCURRENT REVIEW FAXED TO [facility] / FAX# [phone], ATTN: SACHA #[phone]
--- NOTE | 2016-06-07 11:25 | NUR ---
P.T. NOTES RECEIVED P.T.EVAL ORDER, CHART REVIEWED AND RECEIVED CLEARANCE FROM RNSG FOR P.T.EVAL; UPON P.T. ARRIVAL PT FOUDN ASLEEP BUT EASILY ROUSABLE PT SAID "NO, I WON'T DO IT TODAY, I ALREADY TOLD THEM, I JUST GOT COMFORTABLE I HAD A ROUGH NIGHT SO I WON'T DO TI TODAY." PT EDUCATED ON RISKS AND BENEFITS PT CONTINUED TO DECLINE, THIS P.T. OFFERED TO COME BACK AT A LATER TIME PT SAID NO. THIS P.T. CAME BACK AN HOUR LATER TO ATTEMPT P.T. EVAL, PT SAID "I TOLD YOU NO! NOT TODAY I'M NOT GOING TO DO IT." SPO2 ON BOTH OCCASIONS AT 93% CONNECTED TO O2 ON WALL. EDUCATED ON BENEFITS BUT PT CONTINUES TO REFUSE. NRSG MADE AWARE OF PT'S REFUSAL NO CONSENT FOR CARE PROVIDED. PVEX2
--- NOTE | 2016-06-07 12:06 | NUR ---
DR LATIF IN THE ROOM WITH THE PT
[2016-06-07 12:07] VITALS: BP 131/64
--- NOTE | 2016-06-07 13:59 | NUR ---
PT ASLEEP BUT EASILY AWAKEN, NO S/S OF DISTRESS. STILL ON O2 3LPM. ALL NEEDS MET AT THIS TIME, WILL CONTINUE TO MONITOR.
[2016-06-07 16:00] VITALS: BP 132/74
--- NOTE | 2016-06-07 16:05 | NUR ---
PT AWAKE SITTING ON BED WITH FRIENDS AT BEDSIDE. NO S/S OF DISTRESS, WILL CONTINUE TO MONITOR.
--- NOTE | 2016-06-07 18:12 | NUR ---
DINNER SERVED, PT HAS GOOD APPETITE. NO S/S OF DISTRESS NOTED. ALL NEEDS MET AT THIS TIME. CALL LIGHT TAHIRA DIEHL, WILL CONTINUE TO MONITOR.
--- NOTE | 2016-06-07 19:10 | NUR ---
ENDORSED PT TO THE NIGHTSHIFT NURSE AT BEDSIDE FOR CONTINUITY OF CARE. PT IS IN STABLE CONDITION. HE IS RESTING SIDELINE ON R SIDE.
--- NOTE | 2016-06-07 19:15 | NUR ---
RECEIVED PT FROM BRUCE RN PT AAOX4 ON TELEMETRY SR ON 3 LTS VIA NC HL ON RT WRIST HL PT RESTING ON BED INITIAL ASSESSMENT DONE
--- NOTE | 2016-06-07 19:57 | NUR ---
TREATMENT GIVEN AT 1845, TOLERATED WELL, PT SAYS HE HAD A HARD TIME WITH BIPAP LAST NIGHT AND HE DOES NOT WANT TO GO ON BIPAP AT THIS TIME. HR 82 RR 18 SPO2 94% ON 3L NC. NO SOB NOTED.
[2016-06-07 20:00] VITALS: BP 157/73
[2016-06-07] MEDS ORDERED: INSULIN HUMAN REGULAR 100 UNITS/ML 10 ML VIAL SUBQ SCH (20:35)
[2016-06-07] MEDS: ATORVASTATIN 20 MG TAB PO SCH (20:44)
--- NOTE | 2016-06-07 21:00 | NUR ---
BLOOD SUGAR 419 DR GOODMAN WAS CALL AND ORDER 16 UNITS REL INSULIN SUBQ ONCE
[2016-06-08] VITALS: BP 164/70
--- NOTE | 2016-06-08 | NUR ---
PT TEE BIPAP NO;T SOB NOTED , ON TELEMETRY SR
[2016-06-08] MEDS: ALBUTEROL 0.083% 2.5 MG/3 ML NEBU INH SCH ×6 (03:28→23:59)
[2016-06-08] MEDS: IPRATROPIUM 0.02% 0.5 MG/2.5 ML NEBU INH SCH ×6 (03:28→23:59)
[2016-06-08 04:00] VITALS: BP 151/90
--- NOTE | 2016-06-08 04:00 | NUR ---
PT REMOVED BIPAP AND HE IS ON 06 01 LTS VIA NC NOT SIGNS ON DISTRESS NOTED, ON TELEMETRY SR ILV ON RT WRIST PATENT
[2016-06-08] MEDS: PIPER/TAZO 2.25GM/D5W PREMIX 50 ML IV SCH ×3 (04:50→21:00)
--- NOTE | 2016-06-08 06:00 | NUR ---
PICKETT CATH IS DC
[2016-06-08] MEDS: BLOOD GLUCOSE MONITORING 1 DEV DEV FS SCH ×4 (06:05→21:00)
[2016-06-08] MEDS: INSULIN ASPART SLIDING SCALE 100 UNITS/ML VIAL SUBQ PRN ×4 (06:07→23:48)
--- NOTE | 2016-06-08 06:54 | NUR ---
BLOOD SUGASR TEST 360 COVERAGE WITH 10 UNITS REG INSULIN;, ON TELEMETRY SR
[2016-06-08] MEDS: ACETYLCYSTEINE 10% (100 MG/ML) 100 MG/ML VIAL INH SCH ×2 (07:24→19:53)
--- NOTE | 2016-06-08 07:26 | NUR ---
AT 0710 I RECEIVED CRITICAL VALUE BUN 61/CREATININE 2.[address] GREEN MANAGER STRATEGIC SOURCING FOR DR FUNES WAS CALL AND ALSO DR ANNIE BHATTI WAS CALLED PT IS ENDORSED TO DAY SHIFT NURSE ANA PAULA German FOR CONTINUITY OF CARE AND MONITOR CRITICAL VALUES RESULT WITH DR GREEN
--- NOTE | 2016-06-08 07:27 | NUR ---
RECEIVED PT AWAKE WHILE LYING ON BED, AAOX4, WITH O2 ON 3LPM NC, NO S/S OF DISTRESS. SKIN IS INTACT WITH IV ACCESS ON RIGHT WRIST ON SL PATENT AND INTACT. DISCUSSED PLAN OF CARE, PT VERBALIZED UNDERSTANDING. CALL LIGHT WIHTIN REACH, WILL CONTINUE TO MONITOR.
--- NOTE | 2016-06-08 07:38 | NUR ---
RECEIVED PT ON 3L NASAL CANNULA SPO2 97%. PT NOT SOB AND NOT IN RESPIRATORY DISTRESS. BIPAP IS BEDSIDE AT THIS TIME BUT NOT INDICATED. WILL CONTINUE TO MONITOR PT.
--- NOTE | 2016-06-08 07:40 | NUR ---
PAGED DR GREEN INDUSTRIAL REGISTERED NURSE FOR DR FUNES FOR BUN CRITICAL VALUE
--- NOTE | 2016-06-08 07:58 | NUR ---
INFORMED DR LATIF ABOUT BUN. NO NEW ORDERS.
[2016-06-08 08:00] VITALS: BP 152/72
[2016-06-08] MEDS: methylPREDNISolone SS 40 MG/ML VIAL IVP SCH (08:15)
[2016-06-08] MEDS: FUROSEMIDE 40 MG TAB PO SCH (08:15)
[2016-06-08] MEDS: CARVEDILOL 12.5 MG TAB PO SCH ×2 (08:15→20:57)
[2016-06-08] MEDS: SACCHAROMYCES 250 MG CAP PO SCH ×2 (08:15→20:58)
--- NOTE | 2016-06-08 08:15 | NUR ---
DUE MEDS GIVEN, PT TOLERATED WELL. PT LYING ON BED WITHOUT DISTRESS, ALL NEEDS MET AT THIS TIME. CALL LIGHT WITHIN REACH, WILL CONTINUE TO MONITOR.
--- NOTE | 2016-06-08 08:20 | NUR ---
INFORMED DR LATIF OF LOW MAGNESIUM LEVEL
[2016-06-08] MEDS: INSULIN DETEMIR 100 UNITS/ML 10 ML VIAL SUBQ SCH ×3 (08:21→23:49)
[2016-06-08] MEDS ORDERED: MAG SULF 2000 MG/WATER PREMIX 50 ML IV SCH (09:43)
--- NOTE | 2016-06-08 10:03 | NUR ---
SS NOTE: INQUIRIES FOR SHORT TERM SNF PLACEMENT SENT TO [facility]
--- NOTE | 2016-06-08 10:26 | NUR ---
CALLED RT ON BEDSIDE, PT REQUESTS BIPAP.
--- NOTE | 2016-06-08 10:38 | NUR ---
PT PLACED ON BIPAP DUE TO SOB. BIPAP ALARMS ARE ON AND FUNCTIONING. PT IS TOLERATING WELL WITH SCHEDULED BREATHING TX ADMINISTERED. BIPAP IS PLUGGED INTO RED OUTLET. BIPAP SETTINGS 16/6, R12 AND FIO2 30%. WILL CONTINUE TO MONITOR.
--- NOTE | 2016-06-08 11:04 | NUR ---
SS NOTE: [facility] CLAUDINE [facility] ([phone]), THEY ARE ABLE TO ACCEPT PT TO ROOM 108 BED 1 AND THE BI-PAP HAS TO ARRIVE PRIOR TO PT COMING TO THEIR FACILITY. PT INFORMATION AND MD ORDER FOR BI-PAP SENT TO [facility]
--- NOTE | 2016-06-08 11:05 | NUR ---
PT PULLED IV OUT. CHECKED CATHETER TIP INTACT. ASKED IF OKAY TO START NEW IV, PT REFUSED AT THIS TIME. WILL CONTINUE TO ASK TO START NEW IV.
--- NOTE | 2016-06-08 11:55 | NUR ---
SS NOTE: I SPOKE WITH PT BEDSIDE AND INFORMED HIM THAT PT HAS BEEN ACCEPTED AT [facility], PT STATED THAT HE IS IN AGREEMENT WITH GOING.
[2016-06-08 12:00] VITALS: BP 170/69
--- NOTE | 2016-06-08 12:10 | NUR ---
FAXED CONCURRENT REVIEW TO [facility] [phone] PHONE SACHA [phone]
--- NOTE | 2016-06-08 12:37 | NUR ---
PAGED DR. VALENCIA FOR ELEVATED BP.
--- NOTE | 2016-06-08 12:50 | NUR ---
ALL NEEDS MET AT THIS TIME, ASKED PT TO START NEW IV, PT DECLINED. WILL ASK AGAIN
--- NOTE | 2016-06-08 13:09 | NUR ---
PER PT "I DONT WANT TO HAVE IV FOR A COUPLE OF HOURS"
[2016-06-08] MEDS ORDERED: cloNIDine 0.1 MG TAB PO PRN (13:35)
--- NOTE | 2016-06-08 14:13 | NUR ---
SS NOTE: PER [facility] REYNA PACHE[employer] AUTH IS [id number]. Addendum: 06/08/16 at 1421 by Lily Lau SS SHE ALSO STATED THAT SHE IS WORKING ON THE AUTH FOR [facility] [employer] FOR PT'S BI-PAP.
--- NOTE | 2016-06-08 14:41 | NUR ---
PT COMPLAINED ABDOMINAL PAIN, PAGED DR. VALENCIA FOR ORDERS.
--- NOTE | 2016-06-08 14:46 | NUR ---
SS NOTE: PER ELODIA FROM [facility] ([phone]), THEY RECEIVED AUTH FROM [facility] AND DR. NARAYANAN WILL BE PT'S ACCEPTING PHYSICIAN.
--- NOTE | 2016-06-08 14:53 | NUR ---
SS NOTE: PER [facility] NICK GONCALVES, AUTH FOR [employer] IS [id number]. I SPOKE WITH SHANNON FROM [employer] ([phone]). SHE STATED THAT SHE WILL PULL THE AUTH THEN CALL BACK WITH AN ETA FOR PT.
[2016-06-08] MEDS ORDERED: HYDROcodone/APAP 5/325 MG 1 TAB TAB PO PRN (14:55)
--- NOTE | 2016-06-08 15:35 | NUR ---
PT REMOVED BIPAP. PO MEDS BEING GIVEN. PT TOLERATING WELL ON 3L NASAL CANNULA. PT SITTING AT SIDE OF BED TOLERATING WELL WITH PT.
--- NOTE | 2016-06-08 15:53 | NUR ---
SS NOTE: PER SHANNON FROM [employer] ([phone]), THE ETA FOR PT'S BI-PAP DELIVERY TO [facility] IS BEFORE 1900. NICK DE LA O FROM [facility] MADE AWARE.
[2016-06-08 16:00] VITALS: BP 154/69
--- NOTE | 2016-06-08 16:00 | NUR ---
SET UP [facility] GURNEY TRANSPORT FOR 7P.M. WITH [facility]. NEEDS O2. AUTH [id number]. BRUCE PLASENCIA. AWARE.
--- NOTE | 2016-06-08 18:20 | NUR ---
SPOKE TO DAUGHTER LORENE REGARDING TRANSFER TO [facility]
--- NOTE | 2016-06-08 18:30 | NUR ---
SPOKE TO ERINN DURBIN OF [facility] TO GIVE REPORT.
--- NOTE | 2016-06-08 19:18 | NUR ---
ENDORSED PT TO ERINN GUTIERREZ ON STABLE CONDITION FOR CONTINUITY OF CARE
--- NOTE | 2016-06-08 19:20 | NUR ---
RECEIVED REPORT FROM DAY RN, PATIENT IS AAO X4 RESTING IN BED. PATIENT IS ON O2 @3L NC WITH CONTINUOUS PULSE OX MONITORING, PATIENT SATING AT 96%. 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 PATIENT HAS NO IV ACCESS, PATIENT REFUSED REINSERTION OF NEW IV. PATIENT IS AWAITING TRANSFER TO [facility]. TO BE PICKED UP BY [facility]. DISCHARGE PAPERWORK COMPLETE, REPORT GIVEN EARLIER BY DAY SHIFT RN. DISCUSSED PLAN OF CARE WITH PATIENT, PATIENT VERBALIZED UNDERSTANDING, SAFETY MEASURES CHECKED, CALL LIGHT WITHIN REACH. WILL CONTINUE TO MONITOR.
[2016-06-08 20:00] VITALS: BP 171/68
[2016-06-08] MEDS: ATORVASTATIN 20 MG TAB PO SCH (20:57)
--- NOTE | 2016-06-08 21:05 | NUR ---
PATIENT REFUSED BLOOD SUGAR CHECK, STATED HE DOES NOT WANT IT ANYMORE THAT HE HAS BEEN POKED TOO MANY TIMES. INSULIN NOT ADMINISTERED, IV ANTIBIOTIC NOT ADMINISTERED DT NO IV ACCESS, PATIENT REFUSED IV INSERTION. OTHER PO MEDS ADMINISTERED, PATIENT TOLERATED WELL, CALL LIGHT WITHIN REACH. WILL CONTINUE TO MONITOR. PATIENT AWAITING PICKUP FOR TRANSFER.
--- NOTE | 2016-06-08 21:20 | NUR ---
CALLED [facility] FOR APPROXIMATE COUNTER INTELLIGENCE AGENT TIME FOR PATIENT, STATED THEY WOULD BE ANOTHER HOUR AND HALF AT MOST.
--- NOTE | 2016-06-08 22:55 | NUR ---
CALLED [facility], PATIENT STILL NOT PICKED UP, STATED THEY WOULD BE APPROXIMATELY ANOTHER HOUR AND HALF AWAY. [facility] LET [facility] KNOW PATIENT STILL COMING.
--- NOTE | 2016-06-08 23:02 | NUR ---
CALLED [facility], LET THEM KNOW PATIENT STILL WAITING TO BE PICKED UP AND WILL STILL BE TRANSFERRED.
--- NOTE | 2016-06-08 23:52 | NUR ---
PATIENT REQUESTED PUDDING, CHECKED PTS BLOOD SUGAR 508, CALLED MD GOODMAN [employer] CONCRETE IRONWORKER FOR DR ANNIE MD GAVE ORDER TO GIVE 16 UNITS OF NOVOLOG AND THE SCHEDULED 25 UNITS OF LEVEMIR. INSULIN ADMINISTERED PER MD ORDER, PATIENT TOLERATED WELL, CALL LIGHT WITHIN REACH. WILL CONTINUE TO MONITOR.
--- NOTE | 2016-06-09 01:03 | NUR ---
PATIENT PICKED UP BY [facility], PATIENT CONNECTED TO OXYGEN TANK, PATIENT BELONGINGS WITH PATIENT. TELE MONITOR REMOVED. PATIENT IN STABLE CONDITION.
--- NOTE | 2016-06-09 02:59 | NUR ---
[facility] CALLED REGARDING PATIENT'S MEDICATIONS, NO LIST OF CONTINUED MEDICATIONS WAS SENT IN PATIENT'S PACKET. CALLED DR GOODMAN TRANSFER OPERATOR FOR DR VALENCIA, VERBALLY READ THE DR GREGORY THE PATIENT RECEIVED ON THE LAST DAY AT [facility], DR GOODMAN GAVE ORDERS TO CONTINUE ALL MEDICATIONS THE PATIENT RECEIVED ON THE LAST DAY. FAXED OVER TO [facility] THE LIST OF INPATIENT MEDICATIONS AND CALLED AND VERBALLY READ MEDICATIONS TO CONTINUE PER DR GOODMAN. SPOKE TO FILI AT [facility]. CONTINUED MEDICATIONS VERBALLY READ AND READ BACK FOR VERIFICATION.
== END 2016-06-09 01:00 | disposition short-term general hospital (02) | DRG 194 ==
LOC: MED 06:31 → MTU 08:54 → MIC 06-01 16:22 → MTU 06-05 16:20
PROVIDERS: ADMIT Hospitalist; ATTEND Hospitalist
PROC: 5A09557 Assistance with Respiratory Ventilation, Greater than 96 Consecutive Hours, Continuous Positive Airway Pressure (ICD-10-PCS; principal; 2016-05-28)
PROC: 0W9930Z Drainage of Right Pleural Cavity with Drainage Device, Percutaneous Approach (ICD-10-PCS; 2016-05-29)
PROC: 30233N1 Transfusion of Nonautologous Red Blood Cells into Peripheral Vein, Percutaneous Approach (ICD-10-PCS; 2016-05-31)
PROC: 0W9930Z Drainage of Right Pleural Cavity with Drainage Device, Percutaneous Approach (ICD-10-PCS; 2016-06-03)
DX: I13.0 Hypertensive heart and chronic kidney disease with heart failure and stage 1 through stage 4 chronic kidney disease, or unspecified chronic kidney disease (principal); J96.20 Acute and chronic respiratory failure, unspecified whether with hypoxia or hypercapnia; J18.9 Pneumonia, unspecified organism; N17.9 Acute kidney failure, unspecified; E87.2 Acidosis; E87.4 Mixed disorder of acid-base balance; J90 Pleural effusion, not elsewhere classified; I42.9 Cardiomyopathy, unspecified; N18.3 Chronic kidney disease, stage 3 (moderate); I50.33 Acute on chronic diastolic (congestive) heart failure; E11.21 Type 2 diabetes mellitus with diabetic nephropathy; E66.01 Morbid (severe) obesity due to excess calories; J44.0 Chronic obstructive pulmonary disease with (acute) lower respiratory infection; E11.22 Type 2 diabetes mellitus with diabetic chronic kidney disease; J44.1 Chronic obstructive pulmonary disease with (acute) exacerbation; K76.0 Fatty (change of) liver, not elsewhere classified; E66.09 Other obesity due to excess calories; G47.33 Obstructive sleep apnea (adult) (pediatric); Z87.891 Personal history of nicotine dependence; D64.9 Anemia, unspecified; E87.5 Hyperkalemia; E78.5 Hyperlipidemia, unspecified; Z91.013 Allergy to seafood; Z88.2 Allergy status to sulfonamides; Z82.49 Family history of ischemic heart disease and other diseases of the circulatory system; Z83.3 Family history of diabetes mellitus; Z82.3 Family history of stroke; Z68.38 Body mass index [BMI] 38.0-38.9, adult

== ENCOUNTER 2017-04-30 07:18 | Inpatient (IN) | payer OTHER ==
[~2017-04-30] VITALS: Ht 193 cm; Wt 128.5 kg
[~2017-04-30 07:18] MED LIST: ACET-1182 PO; ACET-5629 PO; ASPI81CT95 PO; ATOR40TA PO; AZIT500P1 IV; FURO-570 PO; LANTUS SUBQ; METO25TA PO; ONDA2SOL45 IVP; ROC2I IV; SITA50TA3 PO
[2017-04-30 07:28] VITALS: BP 179/93
--- NOTE | 2017-04-30 08:00 | NUR ---
PT MOVED TO BED 2 VIA W/C.
[2017-04-30] MEDS ORDERED: CAPTOPRIL 12.5 MG TAB PO ONE (08:05)
[2017-04-30] MEDS ORDERED: methylPREDNISolone SS 125 MG/2 ML VIAL IVP ONE (08:05)
[2017-04-30] MEDS ORDERED: ONDANSETRON 4 MG/2 ML VIAL IVP ONE (08:05)
[2017-04-30] MEDS ORDERED: ALBUTEROL 0.083% 2.5 MG/3 ML NEBU INH ONE (08:05)
[2017-04-30] MEDS ORDERED: FUROSEMIDE 100 MG/10 ML VIAL IVP ONE (08:05)
--- NOTE | 2017-04-30 08:30 | NUR ---
BIB EMS FROM HOME WITH C/O SOB, GEN WEAKNESS, INTERMITTENT N/V/D X 1 WK, ABDOMINAL DISTENTION; NON COMPLIANT WITH MEDICATIONS. REPORTS NOT TAKING HIS MEDICATION BECAUSE HE SIMPLY DOES NOT WANT TO TAKE THEM. REPORTS MILD FEVERS/CHILLS, ALTHOUGH HAS NOT TAKEN TEMP. RESP EVEN AND MILDLY LABORED, LS-MARTINE EXP WHEEZES. ABD DISTENDED, SOFT, NT TO PAPLPATION. DENIES DYSURIA. HX; CHF,COPD, HTN, DM
[2017-04-30 08:51] LABS: BASOPHILS # (AUTO) 0.1 K/uL (0.00-0.22); BASOPHILS % (AUTO) 1.4 % (0.0-2.0); EOSINOPHILS # (AUTO) 0.2 K/uL (0-0.4); EOSINOPHILS % (AUTO) 4.5 % (0.0-4.0); HEMATOCRIT 31.7 % (36-52); HEMOGLOBIN 10.2 g/dL (12.0-18.0); LYMPHOCYTES # (AUTO) 0.6 K/uL (2.0-11.5); LYMPHOCYTES % (AUTO) 11.7 % (20.5-51.1); MEAN CORPUSCULAR HEMOGLOBIN 27 pg (27-31); MEAN CORPUSCULAR HGB CONC 32 g/dL (33-37); MEAN CORPUSCULAR VOLUME 85 fL (80-94); MONOCYTES # (AUTO) 0.6 K/uL (0.8-1.0); MONOCYTES % (AUTO) 10.4 % (1.7-9.3); PLATELET COUNT (AUTO) 178 K/uL (140-450); RED BLOOD CELL COUNT(AUTO) 3.73 MIL/uL (4.20-6.10); RED CELL DISTRIBUTION WIDTH 18.8 % (11.6-13.7); WHITE BLOOD COUNT (AUTO) 5.5 K/uL (4.8-10.8)
--- NOTE | 2017-04-30 08:54 | NUR ---
RT AT BEDSIDE COMPLETING TX.
[2017-04-30 09:02] LABS: ANION GAP 10.1 (8-16); CARBON DIOXIDE 23.6 mmol/L (21-32); CREATININE 2.7 mg/dL (0.7-1.3); POTASSIUM 3.7 mmol/L (3.5-5.1)
[2017-04-30 09:08] LABS: ALBUMIN 2.3 g/dL (3.4-5.0); TOTAL BILIRUBIN 0.3 mg/dL (0.0-1.0)
--- NOTE | 2017-04-30 10:28 | NUR ---
# 16 FR Watkins catheter with ml utilizing sterile technique. Immediate return of ml urine noted. Bedside drainage bag placed below level of bladder. Urine sample collected and sent to lab. Pt tolerated procedure .
[2017-04-30] MEDS ORDERED: ONDANSETRON 4 MG/2 ML VIAL IVP PRN (11:20)
[2017-04-30] MEDS ORDERED: ACETAMINOPHEN 325 MG TAB PO PRN (11:20)
[2017-04-30] MEDS ORDERED: MORPHINE SULFATE 2 MG/ML SYR IVP PRN (11:20)
[2017-04-30] MEDS ORDERED: oxyCODONE/APAP 5/325 MG 1 TAB TAB PO PRN (11:30)
[2017-04-30] MEDS: BLOOD GLUCOSE MONITORING 1 DEV DEV FS SCH ×3 (11:30→20:29)
--- NOTE | 2017-04-30 12:03 | NUR ---
Patient will be admitted to care of RN. Admited to . Will go to room. Belongings list completed. Report to .
--- NOTE | 2017-04-30 12:15 | NUR ---
RECEIVED REPORT FROM ER NEW ADMIT UNDER THE CARE OF DR VALENCIA WITH A DX OF CHF. PATIENT AWAKE A/OX4 NO S/S OF RESP DISTRESS NOTED ABLE TO MAKE NEEDS KNOWN. IV SITE RIGHT AC GAUGE 20 INTACT AND PATENT. F/C DRAIN CLEAR YELLOW URINE, UNIT ORIENTATION GIVEN , SAFETY HAS BEEN TAUGHT . PLAN OF CARE DISCUSSED WITH THE PATIENT VITALS STABLE WILL CONTINUE TO MONITOR.
[2017-04-30 12:42] VITALS: BP 161/96
--- NOTE | 2017-04-30 13:00 | NUR ---
PT REFUSED TO TAKE FLU VACCINE BELIEVES IT CAUSES FLU
[2017-04-30] MEDS: ALBUTEROL 0.083% 2.5 MG/3 ML NEBU IH SCH ×2 (13:12→18:35)
[2017-04-30] MEDS: IPRATROPIUM 0.02% 0.5 MG/2.5 ML NEBU IH SCH ×2 (13:12→18:35)
[2017-04-30] MEDS: AZITHROMYCIN 500 MG in DEXTROSE 5% 250 ML IV SCH (13:40)
[2017-04-30] MEDS: FUROSEMIDE 40 MG/4 ML VIAL IVP SCH ×2 (13:48→20:14)
--- NOTE | 2017-04-30 14:00 | NUR ---
DUE MEDS GIVEN TOLERATED WELL DR VALENCIA VISITED PATIENT NEW ORDER CARRIED OUT.
[2017-04-30] MEDS ORDERED: ALUMINUM HYD/MAG/SIMETHICONE 30 ML UDC PO PRN (16:15)
[2017-04-30] MEDS: INSULIN LISPRO SLIDING SCALE 100 UNITS/ML VIAL SUBQ PRN ×2 (16:52→20:29)
--- NOTE | 2017-04-30 18:15 | NUR ---
RECEIVED HANDOFF REPORT FROM CHARGE NURSE FREDERICK. PATIENT A&OX4. PATIENT DENIES PAIN. PATIENT HAS TELE BOX IN PLACE. PATIENT ON 2L O2 NASAL CANNULA. IV SITE PATENT AND INTACT. NO SIGNS OR SYMPTOMS OF ACUTE DISTRESS NOTED. CALL LIGHT WITHIN REACH. WILL CONTINUE TO MONITOR.
[2017-04-30 20:00] VITALS: BP 154/89
--- NOTE | 2017-04-30 20:01 | NUR ---
PM MEDS GIVEN WITH EDUCATION. PATIENT VERBALIZED UNDERSTANDING. NO SIGNS OR SYMPTOMS OF ACUTE DISTRESS NOTED.
[2017-04-30] MEDS: METOPROLOL 25 MG TAB PO SCH (20:14)
[2017-04-30] MEDS ORDERED: MORPHINE SULFATE 4 MG/ML SYR IVP PRN (21:30)
[2017-05-01] VITALS (7 sets, daily range): BP systolic 142–159; BP diastolic 59–84
[2017-05-01] MEDS: IPRATROPIUM 0.02% 0.5 MG/2.5 ML NEBU IH SCH ×4 (00:07→18:29)
[2017-05-01] MEDS: ALBUTEROL 0.083% 2.5 MG/3 ML NEBU IH SCH ×4 (00:07→18:29)
[2017-05-01] MEDS: HYDROCORTISONE 1% OINT 30 GM TUBE TP PRN ×2 (00:23→21:45)
[2017-05-01] MEDS ORDERED: oxyCODONE/APAP 5/325 MG 1 TAB TAB PO PRN (01:15)
--- NOTE | 2017-05-01 01:39 | NUR ---
PATIENT STATES INCREASED ITCHY SKIN. APPLIED SKIN CREAM TO EASE PATIENT. WILL CONTINUE TO MONITOR.
[2017-05-01] MEDS: FUROSEMIDE 40 MG/4 ML VIAL IVP SCH ×3 (04:04→21:00)
--- NOTE | 2017-05-01 05:40 | NUR ---
PATIENT AWAKE IN BED. PATIENT DENIES PAIN. NO SIGNS OR SYMPTOMS OF ACUTE DISTRESS NOTED. CALL LIGHT WITHIN REACH. WILL CONTINUE TO MONITOR.
--- NOTE | 2017-05-01 07:31 | NUR ---
ENDORSED PLAN OF CARE TO AM RN. PATIENT IN STABLE CONDITION
[2017-05-01] MEDS: BLOOD GLUCOSE MONITORING 1 DEV DEV FS SCH ×4 (07:32→20:20)
--- NOTE | 2017-05-01 07:32 | NUR ---
RECEIVED REPORT FROM CONSTRUCTION SERVICES TECHNICIAN NURSE. PATIENT SLEEPING IN BED, AROUSABLE BY VOICE. NO DISTRESS NOTED. RESPIRATIONS EVEN, UNLABORED, ON O2 2L/MIN VIA NC. DENIES ANY PAIN AT THIS TIME. AAOX4, CALM, COOPERATIVE, SKIN COLOR APPROPRIATE TO ETHNICITY, WARM TO TOUCH. SKIN IS INTACT. HAS RASH ON UPPER BACK AND A LITTLE IN CHEST AREA. REPORTS HAVING RASH FOR ABOUT 1 MONTH NOW. LUNGS CTA ON ALL LOBES WITH DIMINISHED SOUNDS. ABDOMEN SOFT, NON-DISTENDED. IV SITE IS INTACT, PATENT, ON SALINE LOCK. REVIEWED PLAN OF CARE WITH PATIENT. PATIENT VERBALIZED UNDERSTANDING. SAFETY MEASURES IN PLACE, CALL LIGHT WITHIN REACH, FALL PREVENTIONS IN PLACE. WILL CONTINUE TO MONITOR.
[2017-05-01 08:13] LABS: BASOPHILS % (AUTO) 0.5 % (0.0-2.0); EOSINOPHILS % (AUTO) 0.2 % (0.0-4.0); HEMATOCRIT 31.4 % (36-52); HEMOGLOBIN 10.4 g/dL (12.0-18.0); LYMPHOCYTES # (AUTO) 0.4 K/uL (2.0-11.5); LYMPHOCYTES % (AUTO) 5.5 % (20.5-51.1); MEAN CORPUSCULAR HEMOGLOBIN 28 pg (27-31); MEAN CORPUSCULAR HGB CONC 33 g/dL (33-37); MEAN CORPUSCULAR VOLUME 86 fL (80-94); MONOCYTES # (AUTO) 0.4 K/uL (0.8-1.0); MONOCYTES % (AUTO) 5.7 % (1.7-9.3); NEUTROPHILS # (AUTO) 6.6 K/uL (1.8-7.7); NEUTROPHILS % (AUTO) 88.1 % (42.2-75.2); PLATELET COUNT (AUTO) 172 K/uL (140-450); RED BLOOD CELL COUNT(AUTO) 3.66 MIL/uL (4.20-6.10); RED CELL DISTRIBUTION WIDTH 18.9 % (11.6-13.7); WHITE BLOOD COUNT (AUTO) 7.4 K/uL (4.8-10.8)
--- NOTE | 2017-05-01 08:35 | NUR ---
RADIOLOGY ON UNIT TO TAKE PATIENT FOR CHEST X-RAY 2 VIEW VIA WHEELCHAIR. WILL CONTINUE TO MONITOR ONCE PATIENT COMES BACK TO UNIT.
[2017-05-01 08:46] LABS: ALBUMIN 2.4 g/dL (3.4-5.0); ANION GAP 15.5 (8-16); CARBON DIOXIDE 20.6 mmol/L (21-32); CREATININE 3.2 mg/dL (0.7-1.3); POTASSIUM 4.1 mmol/L (3.5-5.1); TOTAL BILIRUBIN 0.2 mg/dL (0.0-1.0)
--- NOTE | 2017-05-01 08:55 | NUR ---
PATIENT HAS BEEN SCREENED AND CATEGORIZED MODERATE NUTRITION RISK. PATIENT WILL BE SEEN WITHIN 3-5 DAYS OF ADMISSION. 05/02/17-05/04/[address]
[2017-05-01] MEDS ORDERED: cefTRIAXone 2,000 MG VIAL IV SCH (09:00)
[2017-05-01] MEDS ORDERED: INSULIN GLARGINE RECOMBINAN SUBQ SCH (09:00)
[2017-05-01] MEDS: METOPROLOL 25 MG TAB PO SCH ×2 (09:18→21:18)
[2017-05-01] MEDS: ASPIRIN 81 MG TAB.CHEW PO SCH (09:18)
[2017-05-01] MEDS: ATORVASTATIN 20 MG TAB PO SCH (09:18)
[2017-05-01] MEDS: INSULIN DETEMIR 100 UNITS/ML 10 ML VIAL SUBQ SCH (09:21)
--- NOTE | 2017-05-01 09:31 | NUR ---
PATIENT SITTING IN BED WATCHING TV. NO DISTRESS NOTED. DENIES ANY PAIN. RESPIRATIONS EVEN, UNLABORED, ON O2 2L/MIN VIA NC. SCHEDULED MEDICATIONS DUE GIVEN. SAFETY MEASURES IN PLACE, CALL LIGHT WITHIN REACH. WILL CONTINUE TO MONITOR.
--- NOTE | 2017-05-01 11:30 | NUR ---
PATIENT SITTING IN BED WATCHING TV. NO DISTRESS NOTED. RESPIRATIONS EVEN, UNLABORED, ON O2 2L/MIN VIA NC. CONDITION UNCHANGED. SAFETY MEASURES IN PLACE, CALL LIGHT WITHIN REACH. WILL CONTINUE TO MONITOR.
--- NOTE | 2017-05-01 13:00 | NUR ---
PATIENT SITTING IN BED TALKING ON THE PHONE. NO DISTRESS NOTED. DR. VALENCIA AT BEDSIDE REVIEWING PLAN OF CARE WITH PATIENT [address] VALENCIA PLANS OF DISCHARGING PATIENT HOME TOMORROW WITH PT EVAL FOR CONSULT BEFORE DISCHARGE. PATIENT WANTS TO BE DISCHARGED TODAY AND SAYS HE WILL LEAVE AMA IF DR. VALENCIA DOES NOT CHANGE HER MIND. NOTIFIED DR. VALENCIA VIA VERBALLY. DR. VALENCIA REPLIED WITH CONTINUE WITH HER PLAN TO D/C TOMORROW AND LET PATIENT GO AMA IF HE WISHES. SPOKE TO PATIENT. PATIENT IS IN AGITATED MOOD AND WILL NEED SOME TIME TO THING ABOUT THINGS. WILL CONTINUE TO MONITOR.
--- NOTE | 2017-05-01 13:19 | NUR ---
PT REFUSES HHN AT THIS TIME
--- NOTE | 2017-05-01 13:30 | NUR ---
PATIENT SITTING IN BED. COMPLAINTS OF NAUSEA AND PAIN. ZOFRAN AND PERCOCET GIVEN. IV SITE IS LEAKING. REMOVED IV SITE WITH MINIMAL BLOOD AND LUMEN COMPLETELY INTACT. PATIENT REFUSES TO HAVE NEW IV LINE STARTED AT THIS TIME HE IS IN AGITATED MOOD. HE SAYS HE WANTED TO BE DISCHARGED HOME TODAY BECAUSE HE HAS SO MANY THINGS TO TAKE CARE OF AT HOME. PATIENT DOES NOT WISH TO GO AMA AT THIS TIME. REFUSES CEFTRIAXONE VIA IVPB TO BE HANGED AT THIS TIME DUE TO NOT WANTING TO BE POKED FOR NEW IV LINE. WILL MONITOR AND ASK PATIENT AGAIN WHEN HE IS CALMER.
[2017-05-01] MEDS ORDERED: MORPHINE SULFATE 2 MG/ML SYR IVP PRN (13:40)
[2017-05-01] MEDS: AZITHROMYCIN 500 MG in DEXTROSE 5% 250 ML IV SCH (13:44)
[2017-05-01] MEDS: oxyCODONE/APAP 5/325 MG 1 TAB TAB PO PRN ×2 (15:06→23:33)
--- NOTE | 2017-05-01 15:10 | NUR ---
PATIENT LYING DOWN IN BED SLEEPING, AROUSABLE BY VOICE. COMPLAINTS OF PAIN, WILL MEDICATED WITH PERCOCET. SAFETY MEASURES IN PLACE, CALL LIGHT WITHIN REACH. WILL CONTINUE TO MONITOR.
--- NOTE | 2017-05-01 15:10 | NUR ---
CM NOTE INITIAL REVIEW FAXED TO [facility] [phone] SACHA # [phone]
--- NOTE | 2017-05-01 18:00 | NUR ---
PATIENT REPORTS FEELING "HOT" AND REQUESTS A FAN. NO FAN FOR PATIENT PER INFECTION CONTROLS. NOTIFIED PATIENT AND PATIENT VERBALIZED UNDERSTANDING. REINFORCED PATIENT THAT HE IS ANXIOUS AND TO TAKE DEEP BREATHS. SAFETY MEASURES IN PLACE, CALL LIGHT WITHIN REACH. WILL CONTINUE TO MONITOR.
--- NOTE | 2017-05-01 18:45 | NUR ---
RECEIVED PT FROM ER AT 1835. PLACED PT ON 2L O2 VIA NC. PT DENIES PAIN AT THIS TIME. PT HAS DIALYSIS SHUNT ON LEFT ARM. NO BP SIGN ON LEFT ARM POSTED. PT WAS PUT ON TELE. MRSA SWAB COLLECT. ORIENTED PT TO ROOM. ORDERED DINNER FOR THE PT. VITALS TAKEN, WITHIN NORMAL LIMIT. NO S/S OF DISTRESS NOTED. Addendum: 05/01/17 at 2020 by Rico Andrea RN PLEASE DISCARD, ENTER UNDER WRONG PATIENT
--- NOTE | 2017-05-01 19:17 | NUR ---
GAVE REPORT TO CHAR FILTER OPERATOR NURSE FOR CONTINUITY OF CARE. PATIENT IN STABLE CONDITION.
--- NOTE | 2017-05-01 19:25 | NUR ---
RECEIVED REPORT FROM DAY SHIFT NURSE, PATIENT RESTING IN BED, NO S/S OF DISTRESS NOTED, RESPIRATION EVEN AND UNLABORED, ON OXYMIZER 2L/MIN. NO IV ACCESS AT THIS TIME, OFFERED PATIENT TO START A NEW IV, PATIENT REFUSED, EDUCTION PROVIDED REGARDING THE IMPORTANCE OF HAVING IV ACCESS, PATIENT STILL REFUSED AND CHARGE NURSE IS AWARE PATIENT HAS NO IV. CALL LIGHT WITHIN REACH, SAFETY MEASURE ENSURED, WILL CONTINUE TO MONITOR. Addendum: 05/01/17 at 1954 by Zeus Brandt RN PICKETT IN PLACE, DRAINING URINE BY GRAVITY.
--- NOTE | 2017-05-01 21:26 | NUR ---
LASIX DUE, BUT NO IV ACCESS AT THIS TIME. OFFERED PATIENT OF STARTING A NEW IV, PATIENT REFUSED. EDUCATED PATIENT THE IMPORTANCE AND BENEFITS OF GETTING LASIX AND THE CONSEQUENCE OF NOT GETTING THE LASIX. PATIENT VERBALIZED UNDERSTANDING AND STILL REFUSED. CALL LIGHT WITHIN REACH, SAFETY MEASURE ENSURED, WILL CONTINUE TO MONITOR.
--- NOTE | 2017-05-01 21:50 | NUR ---
PATIENT COMPLAINED ABOUT ITCHING ON HIS BACK, HYDROCORTISONE 1% APPLIED ORDERED, WILL CONTINUE TO MONITOR.
--- NOTE | 2017-05-01 23:35 | NUR ---
PATIENT STATED PAIN /, BP 142/71 HR 72, PAIN MEDICATION ADMINISTERED ORDERED, WILL CONTINUE TO MONITOR.
--- NOTE | 2017-05-02 00:43 | NUR ---
PATIENT COMPLAINED ITCHING ON HIS BACK, RECEIVED ORDER OF BENADRYL 25MG PO PRN Q6H FOR ITCHING FROM DR. HORAN, AND ALSO INFORMED DR. HORAN THAT PATIENT DOES NOT HAVE IV ACCESS, AND HE REFUSED NEW IV AND LASIX WAS NOT ADMINISTERED.
[2017-05-02] MEDS: IPRATROPIUM 0.02% 0.5 MG/2.5 ML NEBU IH SCH ×3 (01:11→13:26)
[2017-05-02] MEDS: ALBUTEROL 0.083% 2.5 MG/3 ML NEBU IH SCH ×3 (01:11→13:27)
--- NOTE | 2017-05-02 01:15 | NUR ---
INFORMED THE PATIENT THAT I AM WAITING PHARMACIST TO VERIFY THE BENADRYL, PATIENT IS RESTING IN BED, NO S/S OF DISTRESS NOTED, WILL CONTINUE TO MONITOR.
--- NOTE | 2017-05-02 02:13 | NUR ---
BENADRYL GIVEN, PATIENT TOLERATED WELL. NO S/S OF DISTRESS NOTED, RESPIRATION EVEN AND UNLABORED, CALL LIGHT WITHIN REACH, SAFETY MEASURE ENSURED, WILL CONTINUE TO MONITOR.
[2017-05-02 04:00] VITALS: BP 141/89
--- NOTE | 2017-05-02 04:13 | NUR ---
NO CHANGE IN CONDITION, PATIENT WAS SLEEPING, NO S/S OF DISTRESS NOTED, RESPIRATION EVEN AND UNLABORED, EASY TO AROUSE, VITAL SIGNS STABLE. CALL LIGHT WITHIN REACH, SAFETY MEASURE ENSURED, WILL CONTINUE TO MONITOR.
[2017-05-02] MEDS ORDERED: INFLUENZA VIRUS VACCINE QUAD 0.5 ML SYR IMVAC PRN (06:45)
[2017-05-02] MEDS: BLOOD GLUCOSE MONITORING 1 DEV DEV FS SCH ×4 (07:10→20:44)
--- NOTE | 2017-05-02 07:11 | NUR ---
ENDORSED PLAN OF CARE TO DAY SHIFT NURSE, PATIENT IS IN STABLE CONDITION.
--- NOTE | 2017-05-02 07:13 | NUR ---
RECEIVED PT IN BED. AWAKE. ALERT ORIENTED X4. NO SOB NOTED. ON 02 AT 2LPM NC. DENIES ANY PAIN OR DISCOMFORT AT THIS TIME. PT AMBULATORY WITH ASSIST. SAFETY PRECAUTION IN PLACE. CALL LIGHT WITHIN REACH.
[2017-05-02 08:00] VITALS: BP 142/71
[2017-05-02 08:08] LABS: BASOPHILS % (AUTO) 0.5 % (0.0-2.0); EOSINOPHILS # (AUTO) 0.1 K/uL (0-0.4); EOSINOPHILS % (AUTO) 1.1 % (0.0-4.0); HEMATOCRIT 31.7 % (36-52); HEMOGLOBIN 10.5 g/dL (12.0-18.0); LYMPHOCYTES % (AUTO) 11.7 % (20.5-51.1); MEAN CORPUSCULAR HEMOGLOBIN 28 pg (27-31); MEAN CORPUSCULAR HGB CONC 33 g/dL (33-37); MEAN CORPUSCULAR VOLUME 85 fL (80-94); MONOCYTES # (AUTO) 0.7 K/uL (0.8-1.0); MONOCYTES % (AUTO) 8.9 % (1.7-9.3); NEUTROPHILS # (AUTO) 6.4 K/uL (1.8-7.7); NEUTROPHILS % (AUTO) 77.8 % (42.2-75.2); PLATELET COUNT (AUTO) 181 K/uL (140-450); RED BLOOD CELL COUNT(AUTO) 3.72 MIL/uL (4.20-6.10); RED CELL DISTRIBUTION WIDTH 18.6 % (11.6-13.7); WHITE BLOOD COUNT (AUTO) 8.2 K/uL (4.8-10.8)
[2017-05-02 08:23] LABS: ALBUMIN 2.5 g/dL (3.4-5.0); ANION GAP 15.5 (8-16); CARBON DIOXIDE 21.4 mmol/L (21-32); CREATININE 3.4 mg/dL (0.7-1.3); POTASSIUM 3.9 mmol/L (3.5-5.1); TOTAL BILIRUBIN 0.2 mg/dL (0.0-1.0)
[2017-05-02] MEDS ORDERED: FUROSEMIDE 40 MG/4 ML VIAL IVP SCH (09:00)
[2017-05-02] MEDS: INSULIN DETEMIR 100 UNITS/ML 10 ML VIAL SUBQ SCH (09:00)
[2017-05-02] MEDS: FUROSEMIDE 40 MG/4 ML VIAL IVP SCH ×2 (09:00→20:44)
--- NOTE | 2017-05-02 09:19 | NUR ---
SCHEDULED LEVEMIR 20 UNITS SQ HELD DUE TO BLOOD SUGAR 109MG/DL
[2017-05-02] MEDS: ASPIRIN 81 MG TAB.CHEW PO SCH (09:51)
[2017-05-02] MEDS: METOPROLOL 25 MG TAB PO SCH ×2 (09:51→20:43)
[2017-05-02] MEDS: ATORVASTATIN 20 MG TAB PO SCH (09:51)
[2017-05-02] MEDS: HYDROCORTISONE 1% OINT 30 GM TUBE TP PRN (11:18)
--- NOTE | 2017-05-02 11:25 | NUR ---
PT REFUSED BLOOD SUGAR CHECK. EXPLAINED TO PT THE NEED OF CHECKING/MONITORING BLOOD SUGAR TO PREVENT HYPO/HYPERGLYCEMIA, BUT PT NON COMPLIANT.
[2017-05-02 11:32] VITALS: BP 148/71
--- NOTE | 2017-05-02 11:58 | NUR ---
PT REFUSED TO HAVE IV LINE INSERTION AND REFUSED ALL IVP MEDICATION OFFERED 3X. EXPLAINED TO PT RISKS FOR NON COMPLIANCE PT VERBALIZED HE JUST DON'T WANT TO BE POKED ANYMORE. DR. VALENCIA MADE AWARE.
[2017-05-02] MEDS: AZITHROMYCIN 500 MG in DEXTROSE 5% 250 ML IV SCH (13:00)
--- NOTE | 2017-05-02 13:26 | NUR ---
ASLEEP EASILY AWAKENS PATIENT REFUSED HHN THERAPY C/O NAUSEA DR. RADHA VALENCIA AT BEDSIDE JOANNE/RN NOTIFIED
--- NOTE | 2017-05-02 13:55 | NUR ---
CM NOTE CONCURRENT REVIEW AND ORDER FOR AND NURSING EVAL FAXED TO [facility] [phone] [facility] [phone]. PER [facility] NICK GONCALVES SEND TO [facility]. FAXED ORDER TO [facility] [phone]. PER [facility], THEY CAN SEND A NURSE TO SEE THE PATIENT WHEN PATIENT IS DISCHARGED. [facility] NICK GONCALVES AWARE. NURSE JOANNE AWARE.
--- NOTE | 2017-05-02 15:16 | NUR ---
CALLED DR. DONIS, OSIRIS MADE AWARE OF DISCHARGE ORDER BY DR. VALENCIA. PER DR. DONIS PT OK TO GET DISCHARGED. WITH TORB ORDERED AND CARRIED OUT.
--- NOTE | 2017-05-02 15:36 | NUR ---
CALLED DAUGHTER LORENE . NO ANSWER. LEFT MESSAGE VIA VOICE MAILBOX. AWAITING CALL BACK TO MAKE AWARE OF PT DISCHARGE ORDER.
[2017-05-02 15:44] VITALS: BP 136/80
--- NOTE | 2017-05-02 16:20 | NUR ---
LORENE DAUGHTER CALLED BACK AND MADE AWARE THAT PER PT. PT WILL CALL BROTHER OSEI TO PICK HIM UP INSTEAD.
--- NOTE | 2017-05-02 16:30 | NUR ---
PT REFUSED BLOOD SUGAR CHECK AT THIS TIME.
--- NOTE | 2017-05-02 19:00 | NUR ---
PT KEPT CLEAN, DRY AND COMFORTABLE, NEEDS ATTENDED. AWAITING BROTHER OSEI TO TUBE LASER OPERATOR PT GOING HOME. WILL ENDORSE TO NEXT SHIFT. PT ON STABLE CONDITION. NO SOB NOTED. DENIES ANY PAIN OR DISCOMFORT AT THIS TIME. FOR CONTINUITY OF CARE.
[2017-05-02] MEDS: oxyCODONE/APAP 5/325 MG 1 TAB TAB PO PRN (19:58)
[2017-05-02 20:00] VITALS: BP 136/71
--- NOTE | 2017-05-02 20:45 | NUR ---
DISCONTINUED PICKETT CATHETER PER PT REQUEST, NO BLEEDING NOTED, URINAL PROVIDED, PT TALKING TO FRIEND ANAT ON THE CELL PHONE, PER PT ANAT WILL BE HERE TO PICK HIM UP TONIGHT, REFUSED BLOOD SUGAR CHECKS AND DUE MEDS OTHER THAN PO MEDS, DUE LOPRESSOR GIVEN, ALL NEEDS ATTENDED.
--- NOTE | 2017-05-02 21:40 | NUR ---
FRIEND ANAT HERE FOR INTEGRATION PROJECT MANAGER, NO IV ACCESS, ARM BAND REMOVED, ORANGE GOWN PROVIDED, SIGNED DC PAPERS GIVEN, DC INSTRUCTIONS GIVEN BY KODY RUBIO EARLIER, WHEELED OUT TO LOBBY, DISCHARGE TO HOME WITH HOME HEALTH.
== END 2017-05-02 21:35 | disposition home health service (06) | DRG 133 ==
LOC: MED 07:18 → MTU 11:19
PROVIDERS: ADMIT Hospitalist; ATTEND Hospitalist
DX: J96.20 Acute and chronic respiratory failure, unspecified whether with hypoxia or hypercapnia (principal); I50.23 Acute on chronic systolic (congestive) heart failure; I42.9 Cardiomyopathy, unspecified; E11.22 Type 2 diabetes mellitus with diabetic chronic kidney disease; I13.0 Hypertensive heart and chronic kidney disease with heart failure and stage 1 through stage 4 chronic kidney disease, or unspecified chronic kidney disease; J44.9 Chronic obstructive pulmonary disease, unspecified; E78.5 Hyperlipidemia, unspecified; I25.10 Atherosclerotic heart disease of native coronary artery without angina pectoris; N18.9 Chronic kidney disease, unspecified; L30.9 Dermatitis, unspecified; F12.90 Cannabis use, unspecified, uncomplicated; Z88.2 Allergy status to sulfonamides; Z91.013 Allergy to seafood; Z87.891 Personal history of nicotine dependence; Z87.01 Personal history of pneumonia (recurrent); Z91.19 Patient's noncompliance with other medical treatment and regimen
CPT/HCPCS: 36415; 51702; 71045; 71046; 80053; 82550; 82948; 83880; 84484; 85025; 85379; 85610; 85730; 86886; 86900; 86901; 87081; 87804; 94640; 96374; 96375; 97110; 99285; J0456; J0696; J1644; J1815; J1940; J2270; J2405; J2930; J7030; J7060; J7613; J7644; Q0092; Q0163

== ENCOUNTER 2017-05-21 05:45 | Inpatient (IN) | payer OTHER ==
[~2017-05-21] VITALS: Ht 193 cm; Wt 99.3 kg
[~2017-05-21 05:45] MED LIST changes: -ACET-5629 PO
--- NOTE | 2017-05-21 05:45 | NUR ---
Kyaw murillo in ED - 05/21/[address] CHAVEZ AT BEDSIDE EVALUATING PT.
--- NOTE | 2017-05-21 05:46 | NUR ---
PT CAROL ALS. TAKEN TO BED 10
[2017-05-21 05:47] VITALS: BP 172/95
--- NOTE | 2017-05-21 05:47 | NUR ---
DR CHAVEZ AT BEDSIDE EVALUATING PT.
--- NOTE | 2017-05-21 06:00 | NUR ---
pt came into ED via EMS for SOB and chest pain x1 day. Pt A&O X4. Pt states pain non-radiating substernal 4/10 pain. EMS states Pt on 3 L NC at home. IV established by EMS in the field 20 guage LAC. Pt breathing is even and unlabored Sating at 96% on 3 L. 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 skin intact. Pt states ambulates with walker at home. ER MD made aware of stattus.
--- NOTE | 2017-05-21 06:01 | NUR ---
Pt evaluated by DR Galicia at bedside.
--- NOTE | 2017-05-21 06:05 | NUR ---
Flu swab, blood draw done and completed at bedside given to Luz Maria.
--- NOTE | 2017-05-21 06:07 | NUR ---
Pt states he cannot give urine right now because he just urinated but will provide sample as soon as he can.
[2017-05-21 06:10] LABS: BASOPHILS # (AUTO) 0.1 K/uL (0.00-0.22); BASOPHILS % (AUTO) 1.1 % (0.0-2.0); EOSINOPHILS # (AUTO) 0.2 K/uL (0-0.4); EOSINOPHILS % (AUTO) 3.6 % (0.0-4.0); HEMATOCRIT 34.2 % (36-52); HEMOGLOBIN 11.1 g/dL (12.0-18.0); LYMPHOCYTES # (AUTO) 0.7 K/uL (2.0-11.5); LYMPHOCYTES % (AUTO) 13.1 % (20.5-51.1); MEAN CORPUSCULAR HEMOGLOBIN 28 pg (27-31); MEAN CORPUSCULAR HGB CONC 32 g/dL (33-37); MEAN CORPUSCULAR VOLUME 87 fL (80-94); MONOCYTES # (AUTO) 0.5 K/uL (0.8-1.0); MONOCYTES % (AUTO) 9.5 % (1.7-9.3); NEUTROPHILS # (AUTO) 3.8 K/uL (1.8-7.7); NEUTROPHILS % (AUTO) 72.7 % (42.2-75.2); PLATELET COUNT (AUTO) 162 K/uL (140-450); RED BLOOD CELL COUNT(AUTO) 3.94 MIL/uL (4.20-6.10); RED CELL DISTRIBUTION WIDTH 17.5 % (11.6-13.7); WHITE BLOOD COUNT (AUTO) 5.3 K/uL (4.8-10.8)
--- NOTE | 2017-05-21 06:20 | NUR ---
Pt went to Radiology accompanied by [employer] via [facility]elisse
[2017-05-21 06:28] LABS: ANION GAP 11.1 (8-16); CARBON DIOXIDE 27.4 mmol/L (21-32); CREATININE 3.4 mg/dL (0.7-1.3); POTASSIUM 4.5 mmol/L (3.5-5.1)
[2017-05-21 06:34] LABS: ALBUMIN 2.5 g/dL (3.4-5.0); TOTAL BILIRUBIN 0.3 mg/dL (0.0-1.0)
--- NOTE | 2017-05-21 06:45 | NUR ---
PT RETURN FROM RADIOLOGY
[2017-05-21] MEDS ORDERED: HYDROcodone/APAP 5/325 MG 1 TAB TAB PO PRN ×3 (07:00→08:30)
[2017-05-21] MEDS ORDERED: FUROSEMIDE 40 MG/4 ML VIAL IVP ONE ×2 (07:00→18:54)
[2017-05-21] MEDS ORDERED: ACETAMINOPHEN 325 MG TAB PO PRN ×2 (07:00→08:30)
--- NOTE | 2017-05-21 07:11 | NUR ---
RECEIVED REPORT FROM ERINN DIETZ. Patient AAOX4. BP 180/96, PULSE OX 98% WITH O2 NC 3LPM . PT C/O ANDOMINAL PAIN & LEGS PAIN 5/10.
[2017-05-21] MEDS ORDERED: DEXTROSE 50% 50 ML SYR IVP PRN (07:15)
--- NOTE | 2017-05-21 07:18 | NUR ---
Care transfered to [facility]
[2017-05-21] MEDS: BLOOD GLUCOSE MONITORING 1 DEV DEV FS SCH ×4 (07:30→21:27)
--- NOTE | 2017-05-21 07:36 | NUR ---
Patient will be admitted to care of DR MCFARLANE. Admited to TELE . Will go to [id number]. Belongings list completed. Report to ERINN COOMBS .
--- NOTE | 2017-05-21 07:36 | NUR ---
Note chidi in ED - 05/21/17 at 0755 by MED1 Patient will be admitted to care of DR MCFARLANE. Admited to . Will go to room. Belongings list completed. Report to .
[2017-05-21 07:40] VITALS: BP 161/95
--- NOTE | 2017-05-21 07:40 | NUR ---
RECEIVED PATIENT FROM ER NURSE. PATIENT IS ON 3L O2 AT THIS TIME. PATIENT IS AWAKE AND AOX4 RIGHT NOW. TOOK PHOTOGRAPHS OF PATIENT'S WOUNDS. LUNGS ARE DIMINISHED BUT CLEAR BILATERALLY AT THIS TIME. PATIENT DOES NOT COMPLAIN OF ANY CHEST PAIN. ATTACHED LEADS TO PATIENT AND MEASURED VITAL SIGNS. PATIENT HAS ALL BELONGINGS. ENCOURAGED PATIENT TO CALL WITH THE CALL LIGHT IF HE NEEDS HELP.
[2017-05-21] MEDS ORDERED: FUROSEMIDE 40 MG/4 ML VIAL IVP SCH (09:00)
--- NOTE | 2017-05-21 09:05 | NUR ---
PATIENT HAS BEEN SCREENED AND CATEGORIZED MODERATE NUTRITION RISK. PATIENT WILL BE SEEN WITHIN 3-5 DAYS OF ADMISSION. 05/23/17-05/25/[address]
[2017-05-21] MEDS ORDERED: oxyCODONE/APAP 5/325 MG 1 TAB TAB PO PRN (09:40)
--- NOTE | 2017-05-21 09:55 | NUR ---
DR CLEMONS AT BEDSIDE FOR EVAL, DR CLEMONS MADE AWARE OF ALLERGY/RASH TO NORCO, OTHER PAIN MED ORDERED.
[2017-05-21] MEDS ORDERED: ASPIRIN 81 MG TAB.CHEW ONE (09:58)
[2017-05-21] MEDS ORDERED: METOPROLOL 25 MG TAB ONE ×3 (09:59→21:32)
[2017-05-21] MEDS ORDERED: ATORVASTATIN 20 MG TAB ONE (09:59)
[2017-05-21] MEDS: ASPIRIN 81 MG TAB.CHEW PO SCH (10:10)
[2017-05-21] MEDS: ATORVASTATIN 20 MG TAB PO SCH (10:11)
[2017-05-21] MEDS: METOPROLOL 25 MG TAB PO SCH ×2 (10:11→21:29)
[2017-05-21] MEDS: INSULIN LANTUS 100 UNITS/ML 10 ML VIAL SUBQ SCH (10:15)
[2017-05-21] MEDS ORDERED: oxyCODONE/APAP 5/325 MG 1 TAB TAB ONE (10:20)
[2017-05-21 10:43] LABS: BARBITURATE, URINE NEG. ng/ml (NEG <=200); BENZODIAZEPINE, URINE NEG. ng/mL (NEG <=200); CANNABINOID, URINE NEG. ng/mL (NEG <=50); COCAINE, URINE NEG. ng/mL (NEG <=300); OPIATE, URINE NEG. ng/mL (NEG <=2000); PHENCYCLIDINE SCREEN,URINE NEG. ng/mL (NEG <=25)
--- NOTE | 2017-05-21 11:12 | NUR ---
CM NOTE INITIAL REVIEW FAXED TO [facility] [phone] SAC[facility] # [phone]
[2017-05-21 12:00] VITALS: BP 119/75
--- NOTE | 2017-05-21 12:34 | NUR ---
DR MANRIQUE AT BEDSIDE.
--- NOTE | 2017-05-21 13:41 | NUR ---
TECH AT BEDSIDE FOR CHEST ULTRASOUND.
[2017-05-21] MEDS ORDERED: ALBUTEROL 0.083% 2.5 MG/3 ML NEBU INH ONE (13:54)
[2017-05-21] MEDS: ALBUTEROL 0.083% 2.5 MG/3 ML NEBU IH PRN (13:56)
[2017-05-21 16:00] VITALS: BP 131/77
--- NOTE | 2017-05-21 16:00 | NUR ---
PICKETT CATHETER 16 KOREAN INSERTED WITH STERILE TECHNIQUE. 30 ML RETURN UPON INSERTION. PATIENT TOLERATED WELL. 24 HOUR CREATININE CLEARANCE TEST STARTED.
[2017-05-21] MEDS: FUROSEMIDE 40 MG/4 ML VIAL IVP SCH (19:02)
--- NOTE | 2017-05-21 19:05 | NUR ---
GAVE REPORT AT BEDSIDE TO NIGHTSHIFT NURSE. PATIENT IS AWAKE AT THIS TIME. PATIENT IS IN STABLE CONDITION.
--- NOTE | 2017-05-21 19:06 | NUR ---
RECEIVED BEDSIDE REPORT FROM DAY SHIFT NURSE RADHA RN, PT STABLE, NO DISTRESS NOTED, IV TO LAC 20G AND RAC 20G SL, PATENT, PT ON 3LPM O2 VIA NC, NO SOB, PT STATED HAVING TOLERABLE PAIN OF 4/10 AT THIS MOMENT, INITIAL ASSESSMENT DONE, ALL SAFETY PRECAUTION MET, WILL CONTINUE TO MONITOR.
[2017-05-21 20:00] VITALS: BP 129/70
--- NOTE | 2017-05-21 22:55 | NUR ---
TALKED TO DR MCFARLANE REGARDING PT HAVING TROUBLE SLEEPING, ORDERED ZOLPIDEM 5MG PRN INSOMNIA. PT ALSO COMPLAINING THAT HIS PAIN IS NOT RELIEVED WITH PAIN MEDICATION PRESCRIBED, STATED NO CHANGES IN THE PAIN MEDICATION. TALKED TO PT REGARDING ORDER AND DECISION, PT STATED UNDERSTANDING.
[2017-05-22] VITALS: BP 149/84
[2017-05-22] MEDS ORDERED: ACETAMINOPHEN 325 MG TAB ONE (00:02)
[2017-05-22] MEDS ORDERED: ZOLPIDEM 5 MG TAB ONE (00:04)
[2017-05-22] MEDS: ZOLPIDEM 5 MG TAB PO PRN (00:05)
--- NOTE | 2017-05-22 00:05 | NUR ---
PT C/O OF HEADACHE, AND INSOMNIA, MEDICATION GIVEN, PT TOLERATED WELL, PT ALSO C/O OF SOB, CALLED RT, RT AT BEDSIDE AT THIS MOMENT GIVING PT RESPIRATORY THERAPY.
[2017-05-22] MEDS ORDERED: ALBUTEROL 0.083% 2.5 MG/3 ML NEBU INH ONE ×2 (00:06→19:01)
[2017-05-22] MEDS: ALBUTEROL 0.083% 2.5 MG/3 ML NEBU IH PRN (00:09)
--- NOTE | 2017-05-22 01:10 | NUR ---
PT DID BM ON BEDSIDE COMMODE, PT HAD TROUBLE GETTING OUT AND BACK TO BED, PT WENT BACK TO BED WITH HELP, NO DISTRESS NOTED, REPORTED HAVING NO PAIN AT THIS MOMENT, DURING TRANSFER, PT ACCIDENTLY YANKED PICKETT, NOTED A LITTLE BLOOD COMING FROM THE PICKETT, PT STATED THERE IS NO PAIN, PT STABLE, NO DISTRESS NOTED, CALL LIGHT WITHIN REACH, WILL CONTINUE TO MONITOR.
--- NOTE | 2017-05-22 02:26 | NUR ---
REPORT GIVEN TO LAST PLASENCIA, ENDORSED PLAN OF CARE, PT STABLE, NO DISTRESS NOTED, CALL LIGHT WITHIN REACH.
--- NOTE | 2017-05-22 02:41 | NUR ---
ASSUMED CARE OF PATIENT. NO COMPLAINS. CALL LIGHT WITHIN REACH.
[2017-05-22 04:18] VITALS: BP 143/93
--- NOTE | 2017-05-22 04:20 | NUR ---
ATE SNACK. VITAL SIGN STABLE. NO COMPLAINS. AFEBRILE. CALL LIGHT WITHIN REACH.
[2017-05-22 05:57] LABS: HEMOGLOBIN 11.2 g/dL (12.0-18.0); MEAN CORPUSCULAR HEMOGLOBIN 28 pg (27-31); MEAN CORPUSCULAR HGB CONC 32 g/dL (33-37); MEAN CORPUSCULAR VOLUME 88 fL (80-94); PLATELET COUNT (AUTO) 174 K/uL (140-450); RED CELL DISTRIBUTION WIDTH 17.3 % (11.6-13.7); WHITE BLOOD COUNT (AUTO) 5.9 K/uL (4.8-10.8)
[2017-05-22] MEDS: BLOOD GLUCOSE MONITORING 1 DEV DEV FS SCH ×4 (06:15→21:00)
[2017-05-22 06:52] LABS: ANION GAP 13.8 (8-16); CREATININE 3.6 mg/dL (0.7-1.3); POTASSIUM 4.8 mmol/L (3.5-5.1)
--- NOTE | 2017-05-22 07:15 | NUR ---
RECEIVED PATIENT REPORT AT BEDSIDE FROM NIGHTSHIFT NURSE. PATIENT IS A&OX4. PATIENT SHOWS NO SIGNS OF SOB, RESPIRATORY DISTRESS, OR RESPIRATORY DEPRESSION. PATIENT ON 3L O2 NC. PATIENT HAS 2 IV'S NOTED ON THE RIGHT AND LEFT AC SALINE LOCK. PATIENT HAS PICKETT CATHETER DRAINING. 24 HOUR CREATININE CLEARANCE TEST IN PROGRESS. PATIENT IS IN STABLE CONDITION. WILL CONTINUE TO MONITOR PATIENT
--- NOTE | 2017-05-22 07:26 | NUR ---
ENDORSED CARE AT BEDSIDE WITH TIM RN, PATIENT IN STABLE CONDITION.
[2017-05-22 08:00] VITALS: BP 160/95
[2017-05-22] MEDS ORDERED: ASPIRIN 81 MG TAB.CHEW ONE (08:20)
[2017-05-22] MEDS ORDERED: FUROSEMIDE 40 MG/4 ML VIAL IVP ONE ×2 (08:21→16:01)
[2017-05-22] MEDS ORDERED: ATORVASTATIN 20 MG TAB ONE (08:21)
[2017-05-22] MEDS ORDERED: METOPROLOL 25 MG TAB ONE ×2 (08:22→21:34)
[2017-05-22] MEDS: ATORVASTATIN 20 MG TAB PO SCH (08:29)
[2017-05-22] MEDS: ASPIRIN 81 MG TAB.CHEW PO SCH (08:30)
[2017-05-22] MEDS: FUROSEMIDE 40 MG/4 ML VIAL IVP SCH ×2 (08:30→16:22)
[2017-05-22] MEDS: METOPROLOL 25 MG TAB PO SCH ×2 (08:30→22:04)
[2017-05-22] MEDS: INSULIN LANTUS 100 UNITS/ML 10 ML VIAL SUBQ SCH (08:48)
[2017-05-22 09:31] LABS: EOSINOPHILS % (MANUAL) 6 % (0-4); LYMPHOCYTES % (MANUAL) 13 % (20-46); MONOCYTES % (MANUAL) 10 % (5-12)
[2017-05-22 12:00] VITALS: BP 164/97
--- NOTE | 2017-05-22 12:01 | NUR ---
CM NOTE CONCURRENT REVIEW FAXED TO [facility] [phone] SAC[facility] # [phone]
[2017-05-22] MEDS ORDERED: ALBUMIN HUMAN 25% 50 ML IV ONE ×2 (12:30→21:36)
--- NOTE | 2017-05-22 12:30 | NUR ---
PATIENT IS ASLEEP AT THIS TIME BUT AROUSABLE. NO SIGNS OF SHORTNESS OF BREATH, RESPIRATORY DISTRESS, OR RESPIRATORY DEPRESSION. WILL CONTINUE TO MONITOR PATIENT.
[2017-05-22] MEDS: ALBUMIN HUMAN 25% 50 ML IV SCH ×2 (12:56→22:04)
--- NOTE | 2017-05-22 14:55 | NUR ---
PATIENT IS AWAKE AT THIS TIME AND TALKING ON HIS PHONE. PATIENT SHOWS NO SIGNS OF RESPIRATORY DISTRESS OR DEPRESSION. PATIENT DOES NOT COMPLAIN OF PAIN AT THIS TIME. WILL CONTINUE TO MONITOR PATIENT.
[2017-05-22 15:49] VITALS: BP 165/71
[2017-05-22] MEDS ORDERED: ONDANSETRON 4 MG/2 ML VIAL ONE ×2 (18:04→22:07)
[2017-05-22] MEDS: ONDANSETRON 4 MG/2 ML VIAL IVP PRN ×2 (18:07→22:09)
--- NOTE | 2017-05-22 18:16 | NUR ---
PATIENT COMPLAINED OF NAUSEA. ADMINISTERED ZOFRAN FOR PATIENT. WILL CONTINUE TO MONITOR.
--- NOTE | 2017-05-22 19:15 | NUR ---
GAVE BEDSIDE REPORT TO NIGHTSHIFT NURSE. PATIENT IS IN STABLE CONDITION.
--- NOTE | 2017-05-22 19:16 | NUR ---
PATIENT REPORT RECEIVED FROM MORNING NURSE AT BEDSIDE. PATIENT IS AWAKE, ALERT AND ORIENTED. NO SIGNS AND SYMPTOMS OF DISTRESS NOTED. NO COMPLAINTS OF PAIN AT THIS TIME. PATIENT IS ON O2 3L VIA NC. PICKETT CATHETER IS IN PLACE DRAINING YELLOW URINE. PLAN OF CARE DISCUSSED WITH PATIENT. PATIENT VERBALIZED UNDERSTANDING. BED IN LOWEST POSITION, SIDE RAILS UP AND CALL LIGHT WITHIN REACH. WILL CONTINUE TO MONITOR.
[2017-05-22 20:00] VITALS: BP 146/83
[2017-05-23] VITALS: BP 151/73
--- NOTE | 2017-05-23 | NUR ---
ASSISTED PATIENT TO BEDSIDE COMMODE. PATIENT TRIED TO HAVE A BM BUT COULDNT. SAID HE WOULD TRY AGAIN LATER.
[2017-05-23] MEDS ORDERED: ALBUTEROL 0.083% 2.5 MG/3 ML NEBU INH ONE (00:15)
[2017-05-23] MEDS: ALBUTEROL 0.083% 2.5 MG/3 ML NEBU IH PRN (00:20)
[2017-05-23] MEDS ORDERED: ZOLPIDEM 5 MG TAB ONE (00:59)
[2017-05-23] MEDS: ZOLPIDEM 5 MG TAB PO PRN ×2 (01:15→23:32)
--- NOTE | 2017-05-23 03:00 | NUR ---
CHECKED ON PATIENT. PATIENT IS ASLEEP. NO SIGNS AND SYMPTOMS OF DISTRESS NOTED. SAFETY PRECAUTIONS IN PLACE. WILL CONTINUE TO MONITOR.
[2017-05-23 04:00] VITALS: BP 140/79
[2017-05-23] MEDS ORDERED: ALBUMIN HUMAN 25% 50 ML IV ONE ×2 (04:12→12:32)
[2017-05-23] MEDS: ALBUMIN HUMAN 25% 50 ML IV SCH ×3 (04:19→20:58)
[2017-05-23 06:00] LABS: BASOPHILS # (AUTO) 0.1 K/uL (0.00-0.22); BASOPHILS % (AUTO) 1.6 % (0.0-2.0); EOSINOPHILS # (AUTO) 0.3 K/uL (0-0.4); EOSINOPHILS % (AUTO) 5.9 % (0.0-4.0); HEMATOCRIT 33.3 % (36-52); HEMOGLOBIN 10.7 g/dL (12.0-18.0); LYMPHOCYTES # (AUTO) 0.6 K/uL (2.0-11.5); LYMPHOCYTES % (AUTO) 10.9 % (20.5-51.1); MEAN CORPUSCULAR HEMOGLOBIN 28 pg (27-31); MEAN CORPUSCULAR HGB CONC 32 g/dL (33-37); MEAN CORPUSCULAR VOLUME 87 fL (80-94); MONOCYTES # (AUTO) 0.6 K/uL (0.8-1.0); MONOCYTES % (AUTO) 11.4 % (1.7-9.3); NEUTROPHILS # (AUTO) 3.8 K/uL (1.8-7.7); NEUTROPHILS % (AUTO) 70.2 % (42.2-75.2); PLATELET COUNT (AUTO) 149 K/uL (140-450); RED BLOOD CELL COUNT(AUTO) 3.83 MIL/uL (4.20-6.10); RED CELL DISTRIBUTION WIDTH 17.5 % (11.6-13.7); WHITE BLOOD COUNT (AUTO) 5.4 K/uL (4.8-10.8)
[2017-05-23 06:24] LABS: ANION GAP 11.2 (8-16); CARBON DIOXIDE 29.5 mmol/L (21-32); CREATININE 3.6 mg/dL (0.7-1.3); POTASSIUM 4.7 mmol/L (3.5-5.1)
[2017-05-23] MEDS: BLOOD GLUCOSE MONITORING 1 DEV DEV FS SCH ×4 (06:43→21:52)
--- NOTE | 2017-05-23 07:15 | NUR ---
PATIENT REPORT GIVEN TO MORNING NURSE AT BEDSIDE. PATIENT IS IN STABLE CONDITION
--- NOTE | 2017-05-23 07:16 | NUR ---
RECEIVED REPORT FROM AUDIO INSTALLER NURSE. PATIENT LYING IN BED SLEEPING, AROUSABLE BY VOICE. NO DISTRESS NOTED. RESPIRATIONS EVEN, UNLABORED, ON O2 3L/MIN VIA NC. AAOX4, CALM, COOPERATIVE, SKIN COLOR APPROPRIATE TO ETHNICITY, WARM TO TOUCH. SKIN IS INTACT. LUNGS CTA ON ALL LOBES. ABDOMEN SOFT, NON-DISTENDED. B/L ANKLE EDEMA NOTED. IV SITE IS INTACT, PATENT, ON SALINE LOCK. BEDSIDE COMMODE NEAR BEDSIDE. REVIEWED PLAN OF CARE WITH PATIENT. PATIENT VERBALIZED UNDERSTANDING. SAFETY MEASURES IN PLACE, CALL LIGHT WITHIN REACH. WILL CONTINUE TO MONITOR.
[2017-05-23 08:00] VITALS: BP 144/77
[2017-05-23] MEDS: METOPROLOL 25 MG TAB PO SCH ×2 (09:00→20:57)
--- NOTE | 2017-05-23 09:00 | NUR ---
DR. CLEMONS AT BEDSIDE REVIEWING PLAN OF CARE WITH PATIENT. WILL CONTINUE TO MONITOR.
[2017-05-23] MEDS ORDERED: FUROSEMIDE 20 MG/2 ML VIAL IVP SCH (09:16)
--- NOTE | 2017-05-23 09:40 | NUR ---
PATIENT LYING IN BED SLEEPING, AROUSABLE BY VOICE. NO DISTRESS NOTED. DENIES ANY PAIN AT THIS TIME. SCHEDULED MEDICATIONS DUE GIVEN. NOTIFED PATIENT THAT HE HAS AN X-RAY TO BE DONE TODAY. PATIENT VERBALIZED UNDERSTANDING. SAFETY MEASURES IN PLACE, CALL LIGHT WITHIN REACH. WILL CONTINUE TO MONITOR.
[2017-05-23] MEDS ORDERED: FUROSEMIDE 20 MG/2 ML VIAL IVP ONE (10:01)
[2017-05-23] MEDS ORDERED: ASPIRIN 81 MG TAB.CHEW ONE (10:01)
[2017-05-23] MEDS ORDERED: FUROSEMIDE 40 MG/4 ML VIAL IVP ONE ×2 (10:02→16:37)
[2017-05-23] MEDS ORDERED: ATORVASTATIN 20 MG TAB ONE (10:02)
[2017-05-23] MEDS: ATORVASTATIN 20 MG TAB PO SCH (10:09)
[2017-05-23] MEDS: ASPIRIN 81 MG TAB.CHEW PO SCH (10:09)
[2017-05-23] MEDS: FUROSEMIDE 40 MG/4 ML VIAL IVP SCH ×2 (10:10→16:42)
[2017-05-23] MEDS: INSULIN LANTUS 100 UNITS/ML 10 ML VIAL SUBQ SCH (10:13)
--- NOTE | 2017-05-23 10:15 | NUR ---
RADIOLOGIST AT BEDSIDE READY TO TAKE PATIENT FOR X-RAY 2 VIEW. PATIENT REFUSES AT THIS TIME DUE TO NOT FEELING WELL AND DOES NOT THINK THAT HE WILL BE ABLE TO STAND UP FOR THE PROCEDURE. WILL NOTIFY MD. WILL CONTINUE TO MONITOR.
[2017-05-23 12:00] VITALS: BP 155/78
[2017-05-23 12:22] LABS: BILIRUBIN,URINE NEGATIVE (NEGATIVE); BLOOD, URINE 3+ (NEGATIVE); COLOR,URINE YELLOW (YELLOW); LEUKOCYTE ESTERASE ,URINE NEGATIVE (NEGATIVE); NITRITE, URINE NEGATIVE (NEGATIVE); UGLUCOSE 1+ (NEGATIVE)
[2017-05-23] MEDS ORDERED: ONDANSETRON 4 MG/2 ML VIAL ONE ×2 (12:25→20:19)
[2017-05-23 12:35] LABS: APPEARANCE,URINE SLIGHTLY HAZY (CLEAR); RBC,URINE 11-20 (MOD) /HPF (0-5); WBC,URINE 0-5 (RARE) /HPF (0-5)
[2017-05-23] MEDS: ONDANSETRON 4 MG/2 ML VIAL IVP PRN (12:36)
--- NOTE | 2017-05-23 12:44 | NUR ---
CM NOTE CONCURRENT REVIEW FAXED TO [facility] [phone] SAC[facility] # [phone]
[2017-05-23] MEDS: INSULIN LISPRO SLIDING SCALE 100 UNITS/ML VIAL SUBQ PRN (12:57)
--- NOTE | 2017-05-23 13:05 | NUR ---
PATIENT SITTING IN BED WATCHING TV. NO DISTRESS NOTED. DENIES ANY PAIN AT THIS TIME. SCHEDULED MEDICATIONS DUE GIVEN. SAFETY MEASURES IN PLACE, CALL LIGHT WITHIN REACH. WILL CONTINUE TO MONITOR.
--- NOTE | 2017-05-23 14:01 | NUR ---
PHYSICAL THERAPIST AT BEDSIDE PERFORMING EVALUATION. IV SITE IS LEAKING AND BLEEDING. REMOVED IV SITE ON LEFT AC. WILL START A NEW IV LINE ONCE PHYSCIAL THERAPIST ARE DONE WITH PATIENT. WILL CONTINUE TO MONITOR.
--- NOTE | 2017-05-23 14:22 | NUR ---
PATIENT SITTING IN BED TALKING WITH FAMILY MEMBERS AT BEDSIDE. NO DISTRESS NOTED. DENIES ANY PAIN AT THIS TIME. SAFETY MEASURES IN PLACE, CALL LIGHT WITHIN REACH. WILL CONTINUE TO MONITOR.
--- NOTE | 2017-05-23 15:50 | NUR ---
NEW IV LINE STARTED ON PATIENT'S LEFT FOREARM #22 ON FIRST ATTEMPT. IV ALBUMIN STARTED AGAIN PER ORDERS. PATIENT TOLERATED WELL. WILL CONTINUE TO MONITOR.
[2017-05-23 16:00] VITALS: BP 150/88
--- NOTE | 2017-05-23 17:49 | NUR ---
PATIENT LYING IN BED SLEEPING, AROUSABLE BY VOICE. NO DISTRESS NOTED. DENIES ANY PAIN AT THIS TIME. RESPIRATIONS EVEN, UNLABORED, ON OW 3L/MIN VIA NC. CONDITION UNCHANGED. SCHEDULED MEDICATIONS DUE GIVEN. SAFETY MEASURES IN PLACE, CALL LIGHT WITHIN REACH. WILL CONTINUE TO MONITOR.
[2017-05-23] MEDS ORDERED: BUDESONIDE 0.5 MG/2 ML NEBU INH SCH (19:30)
--- NOTE | 2017-05-23 19:30 | NUR ---
GAVE REPORT TO NUCLEAR CRITICALITY SAFETY ENGINEER NURSE FOR CONTINUITY OF CARE. PATIENT IN STABLE CONDITION.
--- NOTE | 2017-05-23 19:31 | NUR ---
PATIENT REPORT RECEIVED FROM MORNING NURSE AT BEDSIDE. PATIENT IS AWAKE, ALERT AND ORIENTED. NO SIGNS AND SYMPTOMS OF DISTRESS NOTED. NO COMPLAINTS OF PAIN AT THIS TIME. PATIENT ON 3L O2 NC. IV SITE NOTED ON LEFT FOREARM, SALINE LOCKED. PICKETT CATHETER IN PLACE, DRAINING YELLOW URINE. BED IN LOWEST POSITION, SIDE RAILS UP AND CALL LIGHT WITHIN REACH. WILL CONTINUE TO MONITOR.
[2017-05-23 20:00] VITALS: BP 151/78
[2017-05-23] MEDS: hydrALAZINE 10 MG TAB PO SCH (20:58)
--- NOTE | 2017-05-23 23:00 | NUR ---
ASSISTED PATIENT TO BEDSIDE COMMODE. PATIENT HAD A LARGE BOWEL MOVEMENT. STOOL WAS SOLID AND BROWN. PERICARE DONE.
[2017-05-23] MEDS: traMADol 50 MG TAB PO PRN (23:32)
[2017-05-24] VITALS: BP 138/77
--- NOTE | 2017-05-24 03:00 | NUR ---
CHECKED ON PATIENT. PATIENT IS ASLEEP. NO SIGNS AND SYMPTOMS OF DISTRESS NOTED. BED IN LOWEST POSITION, SIDE RAILS UP AND CALL LIGHT WITHIN REACH.
[2017-05-24 04:00] VITALS: BP 140/75
[2017-05-24] MEDS: ALBUMIN HUMAN 25% 50 ML IV SCH (04:16)
[2017-05-24] MEDS: traMADol 50 MG TAB PO PRN (04:33)
[2017-05-24] MEDS: INSULIN LISPRO SLIDING SCALE 100 UNITS/ML VIAL SUBQ PRN (05:48)
[2017-05-24] MEDS: BLOOD GLUCOSE MONITORING 1 DEV DEV FS SCH ×2 (06:33→11:30)
[2017-05-24 07:03] LABS: BASOPHILS # (AUTO) 0.1 K/uL (0.00-0.22); BASOPHILS % (AUTO) 0.9 % (0.0-2.0); EOSINOPHILS # (AUTO) 0.4 K/uL (0-0.4); EOSINOPHILS % (AUTO) 6.2 % (0.0-4.0); HEMATOCRIT 31.2 % (36-52); LYMPHOCYTES # (AUTO) 0.7 K/uL (2.0-11.5); LYMPHOCYTES % (AUTO) 11.3 % (20.5-51.1); MEAN CORPUSCULAR HEMOGLOBIN 28 pg (27-31); MEAN CORPUSCULAR HGB CONC 32 g/dL (33-37); MEAN CORPUSCULAR VOLUME 88 fL (80-94); MONOCYTES # (AUTO) 0.6 K/uL (0.8-1.0); NEUTROPHILS % (AUTO) 70.6 % (42.2-75.2); PLATELET COUNT (AUTO) 157 K/uL (140-450); RED BLOOD CELL COUNT(AUTO) 3.56 MIL/uL (4.20-6.10); RED CELL DISTRIBUTION WIDTH 17.3 % (11.6-13.7); WHITE BLOOD COUNT (AUTO) 5.8 K/uL (4.8-10.8)
--- NOTE | 2017-05-24 07:17 | NUR ---
PATIENT REPORT GIVEN TO MORNING NURSE AT BEDTIME. PATIENT IS IN STABLE CONDITION
--- NOTE | 2017-05-24 07:18 | NUR ---
RECEIVED REPORT FROM TUBE BUILDING MACHINE OPERATOR NURSE. PATIENT LYING IN BED SLEEPING, AROUSABLE BY VOICE. NO DISTRESS NOTED. RESPIRATIONS EVEN, UNLABORED, ON O2 3L/MIN VIA NC. AAOX4, CALM, COOPERATIVE, SKIN COLOR APPROPRIATE TO ETHNICITY, WARM TO TOUCH. SKIN IS INTACT. LUNGS CTA ON ALL LOBES. ABDOMEN SOFT, NON-DISTENDED. B/L ANKLE EDEMA NOTED. IV SITE IS INTACT, PATENT, ON SALINE LOCK. BEDSIDE COMMODE NEAR BEDSIDE. REVIEWED PLAN OF CARE WITH PATIENT. PATIENT VERBALIZED UNDERSTANDING. SAFETY MEASURES IN PLACE, CALL LIGHT WITHIN REACH. WILL CONTINUE TO MONITOR.
[2017-05-24 07:25] LABS: ANION GAP 10.6 (8-16); CARBON DIOXIDE 27.9 mmol/L (21-32); CREATININE 3.8 mg/dL (0.7-1.3); POTASSIUM 4.5 mmol/L (3.5-5.1)
[2017-05-24 08:00] VITALS: BP 165/95
[2017-05-24] MEDS: ONDANSETRON 4 MG/2 ML VIAL IVP PRN (08:22)
[2017-05-24] MEDS: METOPROLOL 25 MG TAB PO SCH (08:28)
[2017-05-24] MEDS: ATORVASTATIN 20 MG TAB PO SCH (08:28)
[2017-05-24] MEDS: ASPIRIN 81 MG TAB.CHEW PO SCH (08:28)
[2017-05-24] MEDS: hydrALAZINE 10 MG TAB PO SCH (08:29)
[2017-05-24] MEDS: FUROSEMIDE 40 MG/4 ML VIAL IVP SCH ×2 (08:29→17:01)
[2017-05-24] MEDS: INSULIN LANTUS 100 UNITS/ML 10 ML VIAL SUBQ SCH (08:31)
--- NOTE | 2017-05-24 08:40 | NUR ---
PATIENT SITTING IN BED TALKING WITH FRIEND AT BEDSIDE AND EATING BREAKFAST. NO DISTRESS NOTED, DENIES ANY PAIN AT THIS TIME. PATIENT FELT NAUSEATED, ZOFRAN GIVEN PER ORDERS. OTHER SCHEDULED MEDICATIONS DUE GIVEN. SAFETY MEASURES IN PLACE, CALL LIGHT WITHIN REACH. WILL CONTINUE TO MONITOR.
[2017-05-24] MEDS ORDERED: ONDA4ODT1 SL (10:47)
[2017-05-24] MEDS ORDERED: ACET-5629 PO (10:47)
[2017-05-24] MEDS ORDERED: MECL-272 PO (10:47)
[2017-05-24] MEDS ORDERED: MECLIZINE 25 MG TAB PO PRN (10:50)
--- NOTE | 2017-05-24 11:30 | NUR ---
PATIENT SITTING IN BED WATCHING TV. NO DISTRESS NOTED. CONDITION UNCHANGED. SAFETY MEASURES IN PLACE, CALL LIGHT WITHIN REACH. WILL CONTINUE TO MONITOR.
[2017-05-24 12:00] VITALS: BP 126/64
[2017-05-24] MEDS: METOCLOPRAMIDE 10 MG TAB PO SCH ×2 (13:07→17:01)
--- NOTE | 2017-05-24 13:13 | NUR ---
PATIENT LYING IN BED SLEEPING, AROUSABLE BY VOICE. NO DISTRESS NOTED. DENIES ANY PAIN AT THIS TIME. SCHEDULED MEDICATIONS DUE GIVEN. SAFETY MEASURES IN PLACE, CALL LIGHT WITHIN REACH. WILL CONTINUE TO MONITOR.
--- NOTE | 2017-05-24 13:29 | NUR ---
NICK NOTE CONCURRENT REVIEW ORDER FOR HOME HEALTH FAXED TO [facility] [phone] S[facility] # [phone]. PER [facility] NICK GONCALVES, FOR HOME HEALTH SEND TO [facility]# [id number]. FAXED INQUIRY TO [facility] FAX# [phone]. PER [facility]# [phone], THEY CAN TAKE PATIENT AND THEY HAVE A NURSE TO SEE PATIENT AFTER DISCHARGE. [facility] AWARE THAT PATIENT HAS A DISCHARGE ORDER TODAY. Addendum: 05/24/17 at 1336 by Kandis Lundberg CM EMILIA DUKE.
--- NOTE | 2017-05-24 15:00 | NUR ---
PATIENT LYING IN BED SLEEPING, AROUABLE BY VOICE. NOTIFIED PATIENT OF DISCHARGE TO HOME TODAY. PATIENT CALLING SISTER AND FRIEND TO SEE IF THEY CAN PICK HIM UP TODAY. WILL CONTINUE TO MONITOR.
[2017-05-24 16:00] VITALS: BP 141/66
--- NOTE | 2017-05-24 17:00 | NUR ---
PATIENT'S FRIEND IS ABLE TO TAKE PATIENT HOME AROUND 1830. PATIENT AWARE. SCHEDULED MEDICATIONS DUE GIVEN. NO DISTRESS NOTED. DENIES ANY PAIN AT THIS TIME. DISCHARGE INSTRUCTIONS/EDUCATION PROVIDED IN PREFERRED LANGUAGE OF BULGARIAN. MD FOLLOW-UP, NEW/CHANGED MEDICATION REGIMEN EXPLAINED TO PATIENT, AND DISEASE PREVENTION/MANAGEMENT OF CHF. ALL PRESCRIPTIONS GIVEN TO PATIENT AND ALL BELONGINGS WITH PATIENT IN A BAG. ANSWERED ALL OF PATIENT'S QUESTIONS REGARDING DISCHARGE. PATIENT VERBALIZED COMPLETE UNDERSTANDING. IV SITE REMOVED WITH MINIMAL BLOOD AND LUMEN COMPLETELY INTACT. ID BANDS REMOVED. AWAITING FOR FRIEND TO ARRIVE TO TAKE PATIENT HOME. Addendum: 05/24/17 at 1942 by Pb Saldaña RN ADDITION> EXPLAINED TO PATIENT THAT [facility] AT [phone] WILL CALL HIM TO SCHEDULE A HOME VISIT AND PT EVALUATION FOR SAFETY. PATIENT VERBALIZED UNDERSTANDING.
--- NOTE | 2017-05-24 18:30 | NUR ---
PATIENT'S FRIEND ARRIVED ON [facility] UNIT, READY TO TAKE PATIENT HOME. PATIENT ALL DRESSED UP AND READY TO GO. ESCORTED PATIENT DOWN TO LOBBY VIA WHEELCHAIR. ASSISTED PATIENT FROM WHEELCHAIR TO PRIVATE VEHICLE. PATIENT DISCHARGED AT THIS TIME TO HOME VIA PRIVATE VEHICLE IN STABLE CONDITION.
== END 2017-05-24 18:20 | disposition home or self-care (01) | DRG 194 ==
LOC: MED 05:45 → MTU 06:59
PROVIDERS: ADMIT Hospitalist; ATTEND Hospitalist
DX: I50.23 Acute on chronic systolic (congestive) heart failure (principal); K76.7 Hepatorenal syndrome; J96.10 Chronic respiratory failure, unspecified whether with hypoxia or hypercapnia; K76.6 Portal hypertension; N17.9 Acute kidney failure, unspecified; N18.4 Chronic kidney disease, stage 4 (severe); E11.21 Type 2 diabetes mellitus with diabetic nephropathy; I13.0 Hypertensive heart and chronic kidney disease with heart failure and stage 1 through stage 4 chronic kidney disease, or unspecified chronic kidney disease; E11.22 Type 2 diabetes mellitus with diabetic chronic kidney disease; K74.60 Unspecified cirrhosis of liver; E44.1 Mild protein-calorie malnutrition; J44.9 Chronic obstructive pulmonary disease, unspecified; E11.319 Type 2 diabetes mellitus with unspecified diabetic retinopathy without macular edema; R19.7 Diarrhea, unspecified; I25.10 Atherosclerotic heart disease of native coronary artery without angina pectoris; E78.5 Hyperlipidemia, unspecified; D64.9 Anemia, unspecified; E66.01 Morbid (severe) obesity due to excess calories; F10.21 Alcohol dependence, in remission; Z68.26 Body mass index [BMI] 26.0-26.9, adult; Z88.2 Allergy status to sulfonamides; Z88.6 Allergy status to analgesic agent; Z91.013 Allergy to seafood; Z89.431 Acquired absence of right foot; Z87.891 Personal history of nicotine dependence; Z91.14 Patient's other noncompliance with medication regimen; Z99.81 Dependence on supplemental oxygen; Z79.4 Long term (current) use of insulin
CPT/HCPCS: 36415; 71045; 76604; 76705; 80048; 80053; 80305; 81001; 82570; 82575; 82948; 83605; 83735; 83880; 84300; 84443; 84484; 85025; 87040; 87081; 94640; 97110; 97116; 97140; 97530; 99285; J1644; J1815; J1940; J2405; J7613; J8597; P9046; Q0092

== ENCOUNTER 2017-08-31 21:14 | Inpatient (IN) | payer OTHER ==
[~2017-08-31] VITALS: Ht 193 cm; Wt 111.1 kg
[~2017-08-31 21:14] MED LIST changes: +ACET-5629 PO; -AZIT500P1 IV; +MECL-272 PO; -ONDA2SOL45 IVP; +ONDA4ODT1 SL; -ROC2I IV
[2017-08-31 21:15] VITALS: BP 106/84
--- NOTE | 2017-08-31 21:20 | NUR ---
PT CAROL ALS. TAKEN TO BED 8
--- NOTE | 2017-08-31 21:21 | NUR ---
Dr. Oviedo evaluating patient at bedside.
[2017-08-31] MEDS ORDERED: ONDANSETRON 4 MG/2 ML VIAL IVP ONE (21:30)
--- NOTE | 2017-08-31 21:41 | NUR ---
62 Y/O M BIBA W/C/O SOB/ABD DISTECTION/PAIN, UPPER BACK PAIN X 2 WKS GETTING WORSE X 2 DAYS AGO. Hx: COPD, CHF, "kidney issues", IDDM, multiple paracentisis, A-fib, Home O2 3-4 L/m per n/c. ON EDGE FINISHER, ER MADE AWARE.
[2017-08-31 21:49] LABS: BASOPHILS # (AUTO) 0.1 K/uL (0.00-0.22); EOSINOPHILS # (AUTO) 0.2 K/uL (0-0.4); EOSINOPHILS % (AUTO) 3.2 % (0.0-4.0); HEMATOCRIT 31.6 % (36-52); HEMOGLOBIN 10.1 g/dL (12.0-18.0); LYMPHOCYTES # (AUTO) 0.6 K/uL (2.0-11.5); LYMPHOCYTES % (AUTO) 8.7 % (20.5-51.1); MEAN CORPUSCULAR HEMOGLOBIN 29 pg (27-31); MEAN CORPUSCULAR HGB CONC 32 g/dL (33-37); MEAN CORPUSCULAR VOLUME 89.1 fL (80-94); MONOCYTES # (AUTO) 0.7 K/uL (0.8-1.0); MONOCYTES % (AUTO) 11.7 % (1.7-9.3); NEUTROPHILS # (AUTO) 4.8 K/uL (1.8-7.7); PLATELET COUNT (AUTO) 173 K/uL (140-450); RED BLOOD CELL COUNT(AUTO) 3.55 MIL/uL (4.20-6.10); RED CELL DISTRIBUTION WIDTH 17.4 % (11.6-13.7); WHITE BLOOD COUNT (AUTO) 6.4 K/uL (4.8-10.8)
--- NOTE | 2017-08-31 22:00 | NUR ---
PT STATES HE IS UNABLE TO URINATE AT THE MOMENT. ER MADE AWARE.
[2017-08-31 22:15] LABS: ANION GAP 14.4 (8-16); CARBON DIOXIDE 22.4 mmol/L (21-32); CREATININE 3.3 mg/dL (0.7-1.3); POTASSIUM 4.8 mmol/L (3.5-5.1)
[2017-08-31 22:19] LABS: NEUTROPHILS % (AUTO) 75.4 % (42.2-75.2)
[2017-08-31 22:21] LABS: ALBUMIN 2.2 g/dL (3.4-5.0); TOTAL BILIRUBIN 0.4 mg/dL (0.0-1.0)
--- NOTE | 2017-08-31 22:23 | NUR ---
Dr. Oviedo re-evaluating patient at bedside.
[2017-08-31] MEDS ORDERED: LIDOCAINE/EPI 1% 1:100000 20 ML VIAL INJ ONE ×2 (22:34→22:35)
[2017-08-31] MEDS ORDERED: DEXTROSE 50% 50 ML SYR IVP PRN (23:10)
--- NOTE | 2017-08-31 23:16 | NUR ---
PER PT'S DAUGHTER, COPY OF ADVANCE DIRECTIVE WILL BE FAX TOMORROW.
--- NOTE | 2017-08-31 23:25 | NUR ---
STEPHANIE, TELEMETRY CHARGE NURSE NOTIFIED BY PRISCILLA ER CHARGE NURSE THAT PT WILL BE KEPT IN ER FOR FURTHER MONITORING FOR AT LEAST 2 HRS S/P PROCEDURE (PARACENTESIS). ER MD MADE AWARE.
--- NOTE | 2017-08-31 23:35 | NUR ---
PARACENTISIS PERFORMED BY DR PORTILLO AT BEDSIDE. PT TOLERATED WELL.
[2017-08-31] MEDS ORDERED: ALBUMIN HUMAN 25% 100 ML IV ONE ×3 (23:40→23:55)
--- NOTE | 2017-09-01 | NUR ---
Called Chelsie RN, Charge Nurse and informed her we would be monitoring pt here in ER x 2 hours post procedure prior to transfer to Tele room.
--- NOTE | 2017-09-01 00:05 | NUR ---
PROCEDURE DONE, TOTAL OUTPUT FOR PARACENTESIS 7 LITERS.
--- NOTE | 2017-09-01 00:13 | NUR ---
PT RESTING IN BED, STABLE, WILL CONT TO MONITOR.
[2017-09-01 00:27] LABS: CREATINE KINASE MB 1.4 ng/mL (0-3.6)
--- NOTE | 2017-09-01 00:40 | NUR ---
PT ASLEEP, ON MONITOR, DR PORTILLO MADE AWARE OF VS. NO S/S OF DISTRESS NOTED.
[2017-09-01] MEDS: ALBUTEROL 0.083% 2.5 MG/3 ML NEBU INH SCH ×6 (00:43→19:00)
--- NOTE | 2017-09-01 00:57 | NUR ---
PER ER PT OK TO HAVE A LOW SODIUM DIET. HOUSE SUP CALLED FOR A FOOD TRADE.
--- NOTE | 2017-09-01 00:58 | NUR ---
PT STATES HE STILL UNABLE TO GIVE URINE SAMPLE. ESE POTTER MADE AWARE.
[2017-09-01 01:35] LABS: PROTHROMBIN TIME 11.2 secs (10.8-13.4)
--- NOTE | 2017-09-01 01:46 | NUR ---
Patient will be admitted to care of DR MCFARLANE. Admited to TELEMETRY. Will go to room 119A. Belongings list completed. Report to ERINN GARCIA AT BEDSIDE.
--- NOTE | 2017-09-01 02:00 | NUR ---
RECEIVED A 62 Y/O MALE FROM ER VIA [facility]. ADMISSION CARE DONE AND CARRY OUT ORDERS. FALL PRECAUTION IMPLEMENTED. CALL LIGHT WITHIN REACH. WILL CONTINUE TO MONITOR.
--- NOTE | 2017-09-01 02:04 | NUR ---
PT REFUSED HHN TX DUE TO PAIN
[2017-09-01] MEDS ORDERED: ALBUMIN HUMAN 25% 100 ML IV SCH (02:38)
[2017-09-01 04:00] VITALS: BP 148/92
--- NOTE | 2017-09-01 04:20 | NUR ---
SEEN PATIENT ASLEEP BUT EASILY AROUSABLE. FALL PRECAUTION IMPLEMNTED. CALL LIGHT WITHIN REACH.
--- NOTE | 2017-09-01 07:30 | NUR ---
RECEIVED PT ON BED AAOX4. NO SOB NOTED. NO C/O PAIN AT THIS TIME. IV TO RT FOREARM PATENT AND INTACT. CHEST, DIMINISHED AIR ENTRY TO THE BASES, ON 02 AT 2LPM VIA NASAL CANNULA, 02 SATS AT 98%. ABDOMEN, ASCITES NOTED, BOWEL SOUNDS PRESENT. INSTRUCTED PT TO CALL FOR ASSISTANCE. CALL LIGHT WITHIN REACH, PT VERBALIZED UNDERSTANDING.
[2017-09-01] MEDS: BLOOD GLUCOSE MONITORING 1 DEV DEV FS SCH ×4 (07:37→21:12)
--- NOTE | 2017-09-01 07:37 | NUR ---
ENDORSEMENT GIVEN TO AM SHIFT NURSE FOR CONTINUITY OF CARE. PATIENT IN STABLE CONDITION.
[2017-09-01 08:00] VITALS: BP 145/67
--- NOTE | 2017-09-01 08:00 | NUR ---
PT REFUSED BREATHING TX AT THIS TIME STATING HE WANTS TO EAT AND HIS BREATHING IS FINE. EXPLAINED BENEFITS/INDICATIONS PT STILL REFUSED, . PT IS ON 3L NC. PT NOT SOB AND NOT IN RESPIRATORY DISTRESS. WILL CHECK AT LATER TIME FOR BREATHING TX ADMINISTRATION.
[2017-09-01 08:11] LABS: ALBUMIN 2.3 g/dL (3.4-5.0); ANION GAP 13.1 (8-16); CARBON DIOXIDE 22.2 mmol/L (21-32); CREATININE 3.3 mg/dL (0.7-1.3); PHOSPHORUS 5.6 mg/dL (2.5-4.9); POTASSIUM 4.3 mmol/L (3.5-5.1); TOTAL BILIRUBIN 0.4 mg/dL (0.0-1.0)
[2017-09-01] MEDS: ENOXAPARIN 30 MG/0.3 ML SYR SUBQ SCH (09:33)
--- NOTE | 2017-09-01 09:50 | NUR ---
IS HERE ROUNDING.
[2017-09-01 12:00] VITALS: BP 129/60
--- NOTE | 2017-09-01 12:00 | NUR ---
CALLED DR. MCFARLANE AND REGARDING PT REFUSING DISCHARGE FOR TODAY. NEW ORDERS GIVEN.
--- NOTE | 2017-09-01 13:46 | NUR ---
PT REFUSED BREATHING TX AT THIS TIME. BREATH SOUNDS CLEAR BILATERALLY.
--- NOTE | 2017-09-01 15:18 | NUR ---
CLAUDINE FROM [facility] CALLED, ASKED TO FAX PT'S FACE SHEET, H&P, LABS AND CONSULTS TO [phone]. FAX SENT, CONFIRMATION ATTACHED TO PT'S CHART.
[2017-09-01 16:00] VITALS: BP 146/71
--- NOTE | 2017-09-01 17:50 | NUR ---
PT'S SISTER LEON CALLED AND WANTS DR. MCFARLANE TO GIVE HER AN UPDATE OF PT'S CONDITION. LEON'S NUMBER PLACED IN FRONT OF PT'S CHART. Addendum: 09/01/17 at 1900 by Trena Barrientos RN # [phone]
--- NOTE | 2017-09-01 19:00 | NUR ---
RECEIVED PATIENT LYING IN BED AWAKE. FALL PRECAUTION IMPLEMENTED. NC 2L IN PLACE. CALL LIGHT WITHIN REACH.
--- NOTE | 2017-09-01 19:00 | NUR ---
PT RESTING. NO SOB NOTED. NO SIGNS OF PAIN AT THIS TIME. WILL ENDORSE TO NEXT SHIFT NURSE FOR CONTINUITY OF CARE.
--- NOTE | 2017-09-01 19:34 | NUR ---
PT REFUSED HHN TX DUE TO PAIN, RN IN THE ROOM
[2017-09-01 20:00] VITALS: BP 143/62
--- NOTE | 2017-09-01 21:00 | NUR ---
BS TAKEN AND REFUSED FOR INSULIN SHOT. PATIENT DON'T WANT TO BE BOTHER. WILL CONTINUE TO MONITOR.
--- NOTE | 2017-09-01 23:39 | NUR ---
SEEN PATIENT AWAKE IN BED RESTING WITH NC 2L IN PLACE. CALL LIGHT WITHIN REACH. NO S/S OF DISTRESS AT THIS TIME. WILL CONTINUE TO MONITOR.
--- NOTE | 2017-09-02 00:05 | NUR ---
PATIENT REFUSED FOR 12OOAM V/S. EXPLAINED TO PATIENT THE IMPORTANCE OF V/S MONITORING. PATIENT NON- COMPLIANT. WILL CONTINUE TO MONITOR.
[2017-09-02] MEDS: ALBUTEROL 0.083% 2.5 MG/3 ML NEBU INH SCH ×4 (01:34→19:00)
--- NOTE | 2017-09-02 03:09 | NUR ---
SEEN PATIENT ASLEEP BUT EASILY AROUSABLE WITH NC 2L IN PLACE. FALL PREAWILL CONTINUE TO MONITOR.
[2017-09-02] MEDS: BLOOD GLUCOSE MONITORING 1 DEV DEV FS SCH ×4 (06:35→21:18)
--- NOTE | 2017-09-02 07:11 | NUR ---
RECEIVED PATIENT ON 3L NC. O2 SAT 97%. PATIENT REFUSED BREATHING TREATMENT. NO RESPIRATORY DISTRESS NOTED AT THIS TIME. WILL CONTINUE TO MONITOR.
--- NOTE | 2017-09-02 07:25 | NUR ---
ENDORSED PATIENT TO AM SHIFT FOR CONTINUITY OF CARE. PATIENT IN STABLE CONDITION.
--- NOTE | 2017-09-02 07:33 | NUR ---
REPORT RECEIVED FROM RADHA PLASENCIA. PT IN STABLE CONDITION NOT IN ACUTE DISTRESS. IV SITE PATENT. BED LOCKED IN LOW POSITION. CALL TRIMBLE WITHIN REACH. WILL CONTINUE TO MONITOR.
[2017-09-02 08:00] VITALS: BP 151/67
--- NOTE | 2017-09-02 09:07 | NUR ---
PATIENT HAS BEEN SCREENED AND CATEGORIZED MODERATE NUTRITION RISK. PATIENT WILL BE SEEN WITHIN 3-5 DAYS OF ADMISSION. 09/04/17 09/06/[address]
--- NOTE | 2017-09-02 09:30 | NUR ---
AM MEDS GIVEN. PT TOLERATED WELL. PT STATES FEELING NAUSEOUS AND WILL VOMIT. ZOFRAN IVP GIVEN. WILL CONTINUE TO MONITOR.
[2017-09-02] MEDS: ENOXAPARIN 30 MG/0.3 ML SYR SUBQ SCH (09:41)
[2017-09-02] MEDS: ONDANSETRON 4 MG/2 ML VIAL IVP PRN (09:41)
[2017-09-02 11:48] LABS: BASOPHILS % (AUTO) 0.8 % (0.0-2.0); EOSINOPHILS # (AUTO) 0.2 K/uL (0-0.4); EOSINOPHILS % (AUTO) 4.1 % (0.0-4.0); HEMATOCRIT 30.2 % (36-52); HEMOGLOBIN 9.7 g/dL (12.0-18.0); LYMPHOCYTES # (AUTO) 0.4 K/uL (2.0-11.5); LYMPHOCYTES % (AUTO) 6.3 % (20.5-51.1); MEAN CORPUSCULAR HEMOGLOBIN 29 pg (27-31); MEAN CORPUSCULAR HGB CONC 32 g/dL (33-37); MEAN CORPUSCULAR VOLUME 89.8 fL (80-94); MONOCYTES # (AUTO) 0.6 K/uL (0.8-1.0); MONOCYTES % (AUTO) 10.3 % (1.7-9.3); NEUTROPHILS # (AUTO) 4.7 K/uL (1.8-7.7); NEUTROPHILS % (AUTO) 78.5 % (42.2-75.2); PLATELET COUNT (AUTO) 157 K/uL (140-450); RED BLOOD CELL COUNT(AUTO) 3.36 MIL/uL (4.20-6.10); RED CELL DISTRIBUTION WIDTH 17.6 % (11.6-13.7); WHITE BLOOD COUNT (AUTO) 5.9 K/uL (4.8-10.8)
[2017-09-02] MEDS: INSULIN LISPRO SLIDING SCALE 100 UNITS/ML VIAL SUBQ PRN ×2 (11:54→21:18)
[2017-09-02 12:06] LABS: ALBUMIN 2.2 g/dL (3.4-5.0); ANION GAP 15.5 (8-16); CARBON DIOXIDE 22.5 mmol/L (21-32); TOTAL BILIRUBIN 0.4 mg/dL (0.0-1.0)
[2017-09-02 12:14] LABS: CREATININE 3.6 mg/dL (0.7-1.3)
[2017-09-02] MEDS ORDERED: MORPHINE TAB ER 15 MG TABER PO PRN (12:45)
[2017-09-02] MEDS: ALBUMIN HUMAN 25% 100 ML IV SCH (13:11)
--- NOTE | 2017-09-02 13:15 | NUR ---
[address]0 MET WITH PT AND DR MCFARLANE PRESENT. DISCUSSED WITH HIM PLAN FOR DISCHARGE. PT STATED THAT HE HAS HOME O2, W/C AND FWW AND THAT HIS FRIEND ASSISTS WITH HIS CARE NEEDS. DISCUSSED HOME SUPPORT AND AT THIS TIME PT IS AGREEABLE TO HH AND TO [facility] THAT HE HAD LAST TIME HE DISCHARGED. PT IS ALSO OPEN TO HAVING AN INFORMATION VISIT FROM HOSPICE.
--- NOTE | 2017-09-02 13:25 | NUR ---
PT STATES HE IS IN PAIN. AWAITING ORDERS FROM DR MCFARLANE. TORB RECEIVED FROM DR MCFARLANE FOR OXYCODONE 5MG TAB PO Q4H PRN. READ BACK TO VERIFY ORDER. MEDICATION GIVEN. PT TOLERATED WELL. WILL CONTINUE TO MONITOR.
[2017-09-02] MEDS: oxyCODONE 5 MG TAB PO PRN (13:38)
--- NOTE | 2017-09-02 13:42 | NUR ---
Social Workers Notes: I contact [facility] and I spoke to Blanca Saba about patient's referral to hospice care and needing a consultation with Patient to discuss their services and care. Kobimicheleefren agreed and stated that she has already receive the referral for patient and will be coming to [facility] to see Patient with in couple hours to do assessment. These greeting card writer thanked her and ended the call.
[2017-09-02 14:50] VITALS: BP 160/82
--- NOTE | 2017-09-02 14:50 | NUR ---
US PARACENTESIS ORDERED. PARATHORA KIT, FOUR 1 LITER COLLECTION BOTTLES, TIMEOUT FORM, AND CONSENT FORM BROUGHT TO ROOM. AWAITING DR WELLS FOR PROCEDURE. PT SIGNED CONSENT. VS TAKEN. PT NOT IN ANY ACUTE DISTRESS.
--- NOTE | 2017-09-02 15:14 | NUR ---
Social Workers Notes: I meet with [facility] service liaison representative Blanca Saba about patient's referral to hospice care. Per . Jayant stated that she had met with patient and explained all of their services however; after long discussions with Patient he declined hospice care stating " Not been ready" I thanked Mrs. Saba for assessing patient.
[2017-09-02 15:40] VITALS: BP 161/77
--- NOTE | 2017-09-02 17:05 | NUR ---
FAXED INITIAL REVIEW TO [facility] [phone] SACHA [phone] FOR DISCHARGE HOME HEALTH, USE [employer] . PER SACHA FROM [facility], THEY CAN CALL TOMORROW TO GET THE AUTH. I SPOKE WITH CEDRICK FROM [facility], [phone] AND INFORMED HER. FAXED ORDER H&P AND PT NOTES TO HER AT [phone]. SACHA FROM [facility] SAID SHE WOULD BE CALLING THE PATIENT ABOUT FOLLOW UP VISIT WITH THEIR [facility].
[2017-09-02 17:15] LABS: GLUCOSE,BODY FLUID 135 mg/dL
--- NOTE | 2017-09-02 18:05 | NUR ---
PT OK TO DC HOME IF OK BY NEPHROLOGY PER DR MCFARLANE, DR GLEASON PAGED AND CALLED BACK, PT IS OK FOR DC HOME PER DR. Melba GLEASON. WILL NOTIFY PT OF DISCHARGE PLAN.
--- NOTE | 2017-09-02 18:29 | NUR ---
PT LOOKING FOR A RIDE HOME. CALLING FAMILY AND FRIENDS. AWARE OF DISCHARGE PLANS.
--- NOTE | 2017-09-02 19:00 | NUR ---
SPOKE TO DR VALENCIA ABOUT PT. DR VALENCIA SAYS HE CANNOT STAY IF HE DOES NOT HAVE A MEDICAL REASON AND SAID TO CALL A FAMILY MEMBER OR FRIEND TO HELP HIM FIND A RIDE HOME. NIGHT NURSE WILL FOLLOW UP ON THE FRIEND OR FAMILY MEMBER.
--- NOTE | 2017-09-02 19:00 | NUR ---
PT'S SISTER LEON CALLED, PATIENT VERBALLY GIVES PERMISSION TO DISCUSS PLAN WITH HIS SISTER, LEON WANTS TO SPEAK WITH DR MCFARLANE, IT WAS INFORMED TO HER THAT DR MCFARLANE IS NOT CURRENTLY HERE, HE ALREADY ROUNDED ON PT TODAY AND PLACED DISCHARGE ORDER, SISTER INFORMED REGARDING PROCEDURES 2 PARACENTHESIS TODAY AND SATURDAY, REGARDING NEED FOR F/U CARE WITH NEPHRO, CARDIOLOGY, GI, PULMO, AND PRIMARY CARE, SISTER STATES PT DOESNT HAVE A RELIABLE PRIMARY CARE, ALSO DISCUSSED OPTIONS FOR HOSPICE CARE WHICH PT DECLINED AT THIS TIME, SISTER STATES SHE LIVES TOO FAR AWAY TO COME PICK HIM UP, PT STILL CALLING FRIENDS TO TAKE HIM HOME. WILL ENDORSE TO DEPARTMENT OPERATIONS MANAGER NURSE. Addendum: 09/02/17 at 1951 by Aminah Goode RN SISTER LEON PHONE : [phone]
[2017-09-02 19:26] LABS: APPEARANCE,SPUN,BODY FLUID CLEAR (CLEAR); APPEARANCE,UNSPUN,BODY FLUID HAZY (CLEAR); COLOR,BODY FLUID LT YELLOW (LT YELLOW); SPECIMENTYPE,BODY FLUID THORACENTESIS; TOTAL VOLUME,BODY FLUID 5500 mL
[2017-09-02 19:27] LABS: POLYNUCLEAR, BODY FLUID 24 %; RBC, BODY FLUID 390 /cu. mm.; WBC, BODY FLUID 19 /cu. mm.
--- NOTE | 2017-09-02 19:28 | NUR ---
PATIENT REFUSED HHNTX AT THIS TIME. PT WILL CALL IF HE WANTS ONE. NO SOB NOTED
--- NOTE | 2017-09-02 19:44 | NUR ---
PT ENDORSED TO NIGHT RN. PT IN STABLE CONDITION.
--- NOTE | 2017-09-02 19:45 | NUR ---
PATIENT REPORT RECEIVED FROM MORNING NURSE AT BEDSIDE. PATIENT IS AWAKE, ALERT AND ORIENTED. NO SIGNS AND SYMPTOMS OF DISTRESS NOTED. PATIENT ON O2 2L NC. IV SITE NOTED ON RIGHT FOREARM, SALINE LOCKED. PLAN OF CARE DISCUSSED WITH PATIENT. PATIENT VERBALIZED UNDERSTANDING. BED IN LOWEST POSITION, SIDE RAILS UP AND CALL LIGHT WITHIN REACH. WILL CONTINUE TO MONITOR.
--- NOTE | 2017-09-02 21:00 | NUR ---
ASKED PATIENT IF HE WAS ABLE TO CONTACT SOMEONE FOR A RIDE. PATIENT SAID THAT HE WAS STILL TRYING TO CONTACT HIS FRIEND, BUT HIS FRIEND WASNT PICKING UP. ASKED HIM IF HE WANTED ME TO TRY CALLING HIS FRIEND, HE SAID NO AND THAT HE'S ALREADY TRIED SEVERAL TIMES
--- NOTE | 2017-09-02 22:10 | NUR ---
SPOKE TO DR. VALENCIA ON THE PHONE ABOUT PATIENT BEING UNABLE TO FIND A RIDE HOME TONIGHT B/C OF THE DISCHARGE ORDER. TOLD HER THAT PATIENT'S DAUGHTER LEON WAS CONTACTED AROUND 7PM BY MORNING SHIFT AND DAUGHTER IS UNABLE TO TAKE PATIENT HOME B/C SHE LIVES TOO FAR. ALSO TOLD HER THAT PATIENT HAS BEEN TRYING TO CONTACT HIS FRIEND TO PICK HIM UP BUT HIS FRIEND IS NOT ANSWERING. DR. VALENCIA SAID OK TO KEEP HIM HERE AT [place] FOR TONIGHT. Addendum: 09/02/17 at 2322 by Amos Adair RN *PATIENT'S SISTER IS NAMED LEON. NOT THE DAUGHTER
[2017-09-03] VITALS: BP 155/68
[2017-09-03] MEDS: ALBUMIN HUMAN 25% 100 ML IV SCH ×3 (00:09→23:45)
[2017-09-03] MEDS: ACETAMINOPHEN 325 MG TAB PO PRN (00:24)
[2017-09-03 01:22] LABS: APPEARANCE,URINE CLEAR (CLEAR); BILIRUBIN,URINE NEGATIVE (NEGATIVE); BLOOD, URINE 2+ (NEGATIVE); COLOR,URINE YELLOW (YELLOW); LEUKOCYTE ESTERASE ,URINE NEGATIVE (NEGATIVE); NITRITE, URINE NEGATIVE (NEGATIVE); PH,URINE 5.5 (5.0-9.0); UGLUCOSE 1+ (NEGATIVE)
[2017-09-03 02:41] LABS: COARSE GRANULAR CASTS,URINE 0-10 /LPF (None Seen); RBC,URINE 11-20 (MOD) /HPF (0-5); WBC,URINE 6-15 (FEW) /HPF (0-5)
--- NOTE | 2017-09-03 02:46 | NUR ---
CHECKED ON PATIENT. PATIENT ASLEEP. NO SIGNS AND SYMPTOMS OF DISTRESS NOTED. WILL CONTINUE TO MONITOR.
[2017-09-03] MEDS: BLOOD GLUCOSE MONITORING 1 DEV DEV FS SCH ×4 (06:17→19:50)
[2017-09-03 06:36] LABS: ANION GAP 14.9 (8-16); CARBON DIOXIDE 22.4 mmol/L (21-32); CREATININE 3.7 mg/dL (0.7-1.3); MAGNESIUM 1.9 mg/dL (1.8-2.4); PHOSPHORUS 5.7 mg/dL (2.5-4.9); POTASSIUM 4.3 mmol/L (3.5-5.1)
[2017-09-03] MEDS: ALBUTEROL 0.083% 2.5 MG/3 ML NEBU INH SCH ×3 (06:41→19:00)
--- NOTE | 2017-09-03 07:25 | NUR ---
PAGED DR. VALENCIA ABOUT PATIENT'S BUN-61 AND CREATININE-3.7. STILL WAITING FOR CALL. ENDORSED TO MORNING NURSE
--- NOTE | 2017-09-03 07:30 | NUR ---
PATIENT REPORT GIVEN TO MORNING NURSE FOR CONTINUITY OF CARE. PATIENT IS IN STABLE CONDITION
--- NOTE | 2017-09-03 08:00 | NUR ---
PATIENT AWAKE, ALERT. RESPIRATION EVEN, UNLABOR ON 2L NC. SKIN DRY AND WARM. IV PATENT AND INTACT. PATIENT REFUSED VS, AND ASSESSMENT, STATED HE IS HAVING STOMACH CRAMP AND WANT TO BE LEFT ALONE. PATIENT ALSO REFUSED PAIN MED WHEN OFFERED. WILL CONTINUE TO FOLLOW UP. BED AT LOW POSITION, SIDE RAILS UP. CALL LIGHT WITHIN REACH
[2017-09-03] MEDS: ENOXAPARIN 30 MG/0.3 ML SYR SUBQ SCH (09:00)
[2017-09-03 09:30] VITALS: BP 142/55
--- NOTE | 2017-09-03 10:00 | NUR ---
DR. MCFARLANE WAS MADE AWARE OF PATIENT BUN 61, CR 3.7
--- NOTE | 2017-09-03 12:02 | NUR ---
PATIENT WAS SLEEPING COMFORTABLY, RESPIRATION EVEN, UNLABOR ON ROOM AIR. NO DISTRESS NOTED AT THIS TIME
--- NOTE | 2017-09-03 12:36 | NUR ---
CALLED [facility] AND SPOKE WITH ANA SHERWOOD AND INFORMED HER THAT THE PATIENT HAS NOT BEEN DISCHARGED YET. FAXED CONCURRENT REVIEW TO [facility] [phone] PHONE SACHA [phone]
[2017-09-03] MEDS: oxyCODONE 5 MG TAB PO PRN ×2 (12:37→22:04)
[2017-09-03] MEDS: ONDANSETRON 4 MG/2 ML VIAL IVP PRN (12:37)
--- NOTE | 2017-09-03 12:43 | NUR ---
PATIENT COMPLAINED OF STOMACH CRAMP 6/10, AND FEELING NAUSEATED. MEDS WERE GIVEN PER ORDER.
--- NOTE | 2017-09-03 13:00 | NUR ---
pt has refused breathing tx no signs of distress noted at this time
--- NOTE | 2017-09-03 14:30 | NUR ---
PATIENT AWAKE, ALERT. RESPIRATION EVEN, UNLABOR ON ROOM AIR. NO DISTRESS NOTED AT THIS TIME
--- NOTE | 2017-09-03 15:24 | NUR ---
1300 MET WITH PT AT BEDSIDE TO DISCUSS MD ORDER FOR SNF AND DISCUSSED WITH PT THAT HE HAS NOT PARTICIPATED WITH PT PAST TWO DAYS, THEREFORE, HE WILL NOT QUALIFY FOR SNF. 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 PT THEN STATED "I'LL BE HONEST WITH YOU I KNOW THAT I'M DYING AND I JUST WANT TO BE AT HOME SO I CAN SEE MY GRANDSON MUCH POSSIBLE". PROVIDED SUPPORT AND LISTENING FOR PT. PT STATED THAT HE TALKED TO HOSPICE YESTERDAY AND HAD ALL OF HIS QUESTIONS ANSWERED AND NOW THAT HE HAS HAD TIME TO THINK HE WOULD LIKE TO GO HOME AT THIS TIME WITH HOSPICE SERVICES. INFORMED HIM THAT I WOULD INFORM MD AND [facility] OF HIS DECISION. PT STATED HE WOULD PREFER TO GO HOME TOMORROW RATHER THAN [facility] THINGS TODAY. 1400 DR MCFARLANE ON THE UNIT AT THIS TIME AND INFORMED HIM OF PT'S DECISION AND THAT [facility] WOULD BE NOTIFIED.
[2017-09-03 16:00] VITALS: BP 168/83
--- NOTE | 2017-09-03 16:00 | NUR ---
PATIENT AWAKE, ALERT. RESPIRATION EVEN, UNLABOR ON 2L O2. DENIED PAIN, N/V AT THIS TIME. VS IS STABLE. CALL LIGHT WITHIN REACH
--- NOTE | 2017-09-03 19:21 | NUR ---
ENDORSEMENT GIVEN TO THE DYEING MACHINE BACK TENDER NURSE. PATIENT IS STABLE AT THIS TIME.
--- NOTE | 2017-09-03 19:24 | NUR ---
PT REFUSED ALBUTEROL HHN TREATMENT AT THIS TIME. PT SLEEP AND NO SIGN OF SOB OR RESP. DISTRESS NOTED RR-16, HR- 85, SAO2-95%
[2017-09-04] VITALS: BP 159/70
[2017-09-04] MEDS: ALBUTEROL 0.083% 2.5 MG/3 ML NEBU INH SCH ×4 (01:01→19:07)
[2017-09-04] MEDS: ACETAMINOPHEN 325 MG TAB PO PRN ×3 (01:10→19:56)
--- NOTE | 2017-09-04 02:27 | NUR ---
CHECKED ON PATIENT. PATIENT IS ASLEEP. NO SIGNS AND SYMPTOMS OF DISTRESS NOTED. BREATHING EVEN AND UNLABORED. WILL CONTINUE TO MONITOR.
[2017-09-04] MEDS: ALBUMIN HUMAN 25% 100 ML IV SCH ×4 (05:45→14:20)
[2017-09-04] MEDS: oxyCODONE 5 MG TAB PO PRN ×3 (05:53→21:37)
[2017-09-04 06:15] LABS: ANION GAP 14.7 (8-16); CARBON DIOXIDE 23.8 mmol/L (21-32); CREATININE 3.8 mg/dL (0.7-1.3); POTASSIUM 4.5 mmol/L (3.5-5.1)
[2017-09-04 06:22] LABS: PHOSPHORUS 5.2 mg/dL (2.5-4.9)
[2017-09-04] MEDS: BLOOD GLUCOSE MONITORING 1 DEV DEV FS SCH ×4 (06:23→20:30)
--- NOTE | 2017-09-04 06:26 | NUR ---
ASSISTED PATIENT TO BEDSIDE COMMODE. PATIENT STATED THAT HE'S CONSTIPATED AND THAT HE HASNT GONE IN A FEW DAYS. PAGED DR. VALENCIA.
--- NOTE | 2017-09-04 06:41 | NUR ---
ASSISTED PATIENT BACK TO BED. PATIENT WAS ABLE TO HAVE A BOWEL MOVEMENT. PERICARE DONE. PATIENT TOLERATED WELL.
--- NOTE | 2017-09-04 07:32 | NUR ---
PATIENT REPORT GIVEN TO MORNING NURSE AT BEDSIDE. PATIENT IS IN STABLE CONDITION
--- NOTE | 2017-09-04 07:33 | NUR ---
RECEIVED REPORT FROM THE ASSOCIATE DIRECTOR FINANCIAL AID NURSE AT BEDSIDE FOR CONTINUITY OF CARE. PT IS AWAKE AND ORIENTED. INTRODUCED MYSELF AND UPDATED THE BOARD. PT IS MS. PER PT, HE AMBULATES WITH A CANE AT HOME. HE IS CURRENTLY ON BEDREST W/ BRP. BEDSIDE COMMODE AT BEDSIDE. SKIN IS INTACT. IV ON R FA 20G INFUSING ALBUMIN AT 100ML/HR. LBM THIS MORNING. V/S WITHIN NORMAL RANGE. DENIES PAIN. PLAN FOR TODAY: D/C W/ [facility]. WILL AWAIT ORDERS.
[2017-09-04 08:00] VITALS: BP 167/79
[2017-09-04] MEDS: ENOXAPARIN 30 MG/0.3 ML SYR SUBQ SCH (09:01)
--- NOTE | 2017-09-04 09:02 | NUR ---
ADMINISTERED MORNING MEDS. PT TOLERATED WELL. WILL CONTINUE TO MONITOR PT. BARELY TOUCHED HIS BREAKFAST. HE IS AFRAID HE WILL GET CONSTIPATED AND HAVE CRAMPS LIKE BEFORE.
--- NOTE | 2017-09-04 10:00 | NUR ---
HOSPICE IS HERE TO ASSESS AND EVAL PT FOR HOSPICE.
--- NOTE | 2017-09-04 11:29 | NUR ---
ENDORSED PT TO ERINN COOMBS. PT IS STILL IN PROCESS OF SIGNING ONTO HOSPICE. PER HOSPICE REP, SHE SPOKE TO DR MCFARLANE ABOUT A PARACENTESIS CATH TO BE PLACE BEFORE D/C. WILL AWAIT ORDERS.
--- NOTE | 2017-09-04 12:25 | NUR ---
BLOOD SUGAR 133, NO INSULIN NEEDED PER SLIDING SCALE, PT RESTING QUIETLY IN NAD, RESP EVEN UNLABORED, WILL CONTINUE TO MONITOR.
--- NOTE | 2017-09-04 12:33 | NUR ---
ALBUMIN NOT STOCKED IN PYXIS, PHARMACY NOTIFIED
--- NOTE | 2017-09-04 13:31 | NUR ---
CHECK ON PT STATES HE DEFERS HHN UNTILL 190
--- NOTE | 2017-09-04 14:11 | NUR ---
Lpn Rn Notes: I call [facility] and I spoke to Joelle to inform her that Patient will be discharged today at about 14:30.
[2017-09-04] MEDS: ONDANSETRON 4 MG/2 ML VIAL IVP PRN (14:19)
[2017-09-04 14:20] VITALS: BP 145/73
--- NOTE | 2017-09-04 14:20 | NUR ---
RADIOLOGIST DR WELLS AT BED SIDE FOR ULTRASOUND GUIDED PARASENTHESIS CATH PLACEMENT, CONSENT SIGNGED, TIME OUT DONE, VITASL STABLE,
[2017-09-04 15:00] VITALS: BP 144/70
--- NOTE | 2017-09-04 15:00 | NUR ---
DR WELLS DONE WITH CATHETER PLACEMENT, PT PAMELA WELL, VITALS STABLE, WILL CONTINUE TO MONTIOR
--- NOTE | 2017-09-04 15:06 | NUR ---
PT NOTES CHART REVIEWED AND CLEARED FOR PT BY MALVIN PLASENCIA. ATTEMPTED TO SEE PATIENT AT 1340, PT REFUSED ALL SKILLED INTERVENTIONS AT THIS TIME. EDUCATED PT ON IMPORTANCE OF PT AND BENEFITS WITH OOB ACTIVITY. PT STATES, " I AM SUPPOSED TO D/C TO HOME LATER AND THEY ARE SUPPOSED TO PERFORM SOME KIND OF DRAINAGE THIS AFTERNOON." DISCUSSED WITH MALVIN PLASENCIA THAT PT REFUSED THERAPY TODAY. Addendum: 09/04/17 at 1545 by Janet Greco PT PHYSICAL THERAPY CO-SIGN The Physical Therapy Progress Notes documented by Traffic Signal Repairer have been reviewed. I CONCUR W/ASSISTANT STORE MANAGER TRAINEE NOTE Reviewed/Co-Signed by: Janet Greco, PT Documentation Done by: CHETAN ROCHA, ASSISTANT STORE MANAGER TRAINEE
[2017-09-04 15:30] VITALS: BP 142/72
--- NOTE | 2017-09-04 15:33 | NUR ---
CLAUDINE [facility] [phone], CALLED BUT NO ANSWER, NO VOICE MAIL AVAILABLE, WILL ATTEMPT AT LATER TIME TO INFORM OF CATHETER PLACEMENT AND DISCHARGE PLAN.
--- NOTE | 2017-09-04 15:54 | NUR ---
SPOKE WITH CLAUDINE AT [facility] AND INFORMED HER THAT PT HAS HAD PARACENTESIS CATHETER PLACED AND PT NEEDS TO DISCHARGE. CLAUDINE WILL COME TO THE FACILITY AND SPEAK WITH PT.
--- NOTE | 2017-09-04 15:56 | NUR ---
CLINICAL INFORMATION FAXED TO SACHA AT [facility] FAX [phone]
[2017-09-04 16:00] VITALS: BP 140/70
[2017-09-04] MEDS ORDERED: MSCON15 PO (17:28)
[2017-09-04] MEDS ORDERED: LACT10SO1 PO (17:29)
[2017-09-04] MEDS ORDERED: ALBUMIN HUMAN 25% 100 ML IV SCH (18:00)
--- NOTE | 2017-09-04 19:00 | NUR ---
PER CLAUDINE [facility], [facility] MULTIPLE DRUM SANDER HELPER PT AT 2100 FOR DC HOME. PT AND SISTER AWARE OF PLAN.
--- NOTE | 2017-09-04 19:25 | NUR ---
REPORT GIVEN TO ANTIQUE CLOCKS REPAIRER NURSE AMY ROSADO IN STABLE CONDITION.
--- NOTE | 2017-09-04 22:20 | NUR ---
PT SIGNED ALL DISCHARGE PAPERWORK, ALL DISCHARGE INSTRUCTIONS GIVEN WITH PRESCRIPTIONS AND EDUCATION ON MEDICATION. PT VERBALIZED UNDERSTANDING. IV REMOVED, TIP INTACT. ALL PERSONAL BELONGINGS SENT WITH PT, PT VERBALLY AGREED HE HAD EVERYTHING. PT CHANGED INTO PINK GOWN AND WHEELED OUT ON GURNEY TO LOBBY BY [facility] [employer] [facility] [facility].
== END 2017-09-04 22:20 | disposition hospice, home (50) | DRG 280 ==
LOC: MED 21:14 → MTU 23:19 → OBSVTOIN 09-01 12:02
PROVIDERS: ADMIT Hospitalist; ATTEND Hospitalist
PROC: 0W9G3ZZ Drainage of Peritoneal Cavity, Percutaneous Approach (ICD-10-PCS; 2017-08-31)
PROC: 0W9G3ZZ Drainage of Peritoneal Cavity, Percutaneous Approach (ICD-10-PCS; principal; 2017-09-02)
PROC: 0W9G30Z Drainage of Peritoneal Cavity with Drainage Device, Percutaneous Approach (ICD-10-PCS; 2017-09-04)
DX: K70.31 Alcoholic cirrhosis of liver with ascites (principal); K76.7 Hepatorenal syndrome; I13.2 Hypertensive heart and chronic kidney disease with heart failure and with stage 5 chronic kidney disease, or end stage renal disease; E43 Unspecified severe protein-calorie malnutrition; N17.9 Acute kidney failure, unspecified; I42.9 Cardiomyopathy, unspecified; N18.5 Chronic kidney disease, stage 5; E11.22 Type 2 diabetes mellitus with diabetic chronic kidney disease; I48.91 Unspecified atrial fibrillation; E46 Unspecified protein-calorie malnutrition; E66.9 Obesity, unspecified; E88.09 Other disorders of plasma-protein metabolism, not elsewhere classified; I50.9 Heart failure, unspecified; D64.9 Anemia, unspecified; R62.7 Adult failure to thrive; J44.9 Chronic obstructive pulmonary disease, unspecified; Z88.2 Allergy status to sulfonamides; Z88.5 Allergy status to narcotic agent; Z91.013 Allergy to seafood; Z68.29 Body mass index [BMI] 29.0-29.9, adult; Z99.81 Dependence on supplemental oxygen; Z87.891 Personal history of nicotine dependence; Z91.14 Patient's other noncompliance with medication regimen; Z79.82 Long term (current) use of aspirin; Z79.899 Other long term (current) drug therapy; Z79.4 Long term (current) use of insulin
CPT/HCPCS: 49082; 49083; 96374; 96375; 99285; G0378; 36415; 71045; 75989; 76705; 80048; 80053; 81001; 82140; 82150; 82550; 82553; 82945; 82948; 83690; 83735; 84100; 84157; 84484; 85025; 85610; 87081; 87086; 87205; 89051; 93005; 94640; 97110; 97140; J1650; J1815; J2001; J2405; J7030; J7613; P9046; Q0092

== ENCOUNTER 2017-11-23 03:22 | Inpatient (IN) | payer OTHER ==
[~2017-11-23] VITALS: Ht 193 cm; Wt 117.9 kg
[~2017-11-23 03:22] MED LIST changes: +LACT10SO1 PO; +MSCON15 PO
--- NOTE | 2017-11-23 03:24 | NUR ---
62/M BIBA IN W C/O SUBSTERNAL CHEST PAIN, NONRADIATING, NONPROVOKED AND SOB X 2 DAYS. ALL LUNG SOUNDS CBTA, 16RR EVEN WITH ACCESSORY MUSCLE USE, PT ARRIVED ON 2LPM NC, SATS 93%, PER EMS PT SATS 85% ON RA. HR SOUNDS REGULAR. ABD NOTED TO BE DISTENDED. PMH: HTN, CHF, RENAL DISEASE, DM, ASCITES
[2017-11-23 03:25] VITALS: BP 131/52
[2017-11-23 04:14] LABS: EOSINOPHILS # (AUTO) 0.4 K/uL (0-0.4); HEMOGLOBIN 9.4 g/dL (12.0-18.0); LYMPHOCYTES # (AUTO) 0.3 K/uL (2.0-11.5); MONOCYTES # (AUTO) 0.7 K/uL (0.8-1.0); NEUTROPHILS # (AUTO) 4.5 K/uL (1.8-7.7)
[2017-11-23 04:24] LABS: BASOPHILS % (AUTO) 0.8 % (0.0-2.0); EOSINOPHILS % (AUTO) 7.2 % (0.0-4.0); HEMATOCRIT 30.1 % (36-52); LYMPHOCYTES % (AUTO) 4.6 % (20.5-51.1); MEAN CORPUSCULAR HEMOGLOBIN 29 pg (27-31); MEAN CORPUSCULAR HGB CONC 31 g/dL (33-37); MEAN CORPUSCULAR VOLUME 93.6 fL (80-94); MONOCYTES % (AUTO) 11.2 % (1.7-9.3); PLATELET COUNT (AUTO) 184 K/uL (140-450); RED BLOOD CELL COUNT(AUTO) 3.21 MIL/uL (4.20-6.10); RED CELL DISTRIBUTION WIDTH 16.7 % (11.6-13.7); WHITE BLOOD COUNT (AUTO) 5.9 K/uL (4.8-10.8)
[2017-11-23 04:28] LABS: ANION GAP 16.1 (8-16); CARBON DIOXIDE 19.8 mmol/L (21-32); POTASSIUM 4.9 mmol/L (3.5-5.1)
[2017-11-23 04:31] LABS: CREATININE 4.8 mg/dL (0.7-1.3)
[2017-11-23 04:38] LABS: TOTAL BILIRUBIN 0.4 mg/dL (0.0-1.0)
[2017-11-23 04:52] LABS: NEUTROPHILS % (AUTO) 76.2 % (42.2-75.2)
[2017-11-23] MEDS ORDERED: LIDOCAINE/EPI 1% 1:100000 20 ML VIAL INJ ONE (04:57)
--- NOTE | 2017-11-23 05:05 | NUR ---
0[address] TIME OUT CALL[address] BY DR VANCE [address] VANCE, PT TOLERATING WELL
[2017-11-23] MEDS ORDERED: ALBUMIN HUMAN 25% 100 ML IV ONE (05:15)
--- NOTE | 2017-11-23 06:22 | NUR ---
[facility] OPER[facility] HELPER TO BE PAGED
[2017-11-23] MEDS ORDERED: ONDANSETRON 4 MG/2 ML VIAL IVP PRN (06:40)
[2017-11-23] MEDS ORDERED: HYDROcodone/APAP 5/325 MG 1 TAB TAB PO PRN (06:40)
[2017-11-23] MEDS ORDERED: ALBUTEROL 0.083% 2.5 MG/3 ML NEBU IH PRN (06:40)
[2017-11-23] MEDS ORDERED: ACETAMINOPHEN 325 MG TAB PO PRN (06:40)
[2017-11-23] MEDS ORDERED: DEXTROSE 50% 50 ML SYR IVP PRN (06:50)
[2017-11-23] MEDS ORDERED: INSULIN LISPRO SLIDING SCALE 100 UNITS/ML VIAL SUBQ PRN (06:50)
[2017-11-23] MEDS: BLOOD GLUCOSE MONITORING 1 DEV DEV FS SCH ×5 (07:30→21:50)
[2017-11-23 08:00] VITALS: BP 179/91
--- NOTE | 2017-11-23 08:01 | NUR ---
BED ASSIGNED TRANFER TO FLOOR PATIENT STABLE NO ACUTE CHANGES
--- NOTE | 2017-11-23 08:30 | NUR ---
Patient will be admitted to care of DR. MCFARLANE. Admited to . Will go to room. Belongings list completed. Report to .
--- NOTE | 2017-11-23 08:45 | NUR ---
PT ADMITTED TO MED/SURG. BEDSIDE REPORT GIVEN BY GRIEVANCE AND APPEALS SPECIALIST J LUIS. PT IS AAOX4. INTRODUCED SELF AND UPDATED BOARD. PT TRANSFERRED TO BED FROM [facility] WITH ASSIST. PT WITH MULTIPLE SCABS ON RIGHT AND LEFT FOOT. PICTURES TAKEN. 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 PT WITH HEALED WOUND ON L HIP. NO COUGH. NO SOB. O2 SAT 97% ON O2 NC 2L/MIN. ABD DISTENDED. BS PRESENT. PT ABLE TO STATE PAST MEDICAL HX. STATED LAST BM WAS 11/21. PT HAD URINE ON CHUX AND LINENS. CHANGED GOWN AND LINENS AND GAVE PT BED BATH. TOLERATED WELL. NO SIGNS OF DISTRESS. CALL LIGHT WITHIN REACH. WILL CONTINUE TO MONITOR.
[2017-11-23] MEDS ORDERED: INSULIN LANTUS 100 UNITS/ML 10 ML VIAL SUBQ SCH ×2 (09:00→21:00)
[2017-11-23] MEDS: LACTULOSE 20 GM/30 ML UDC PO SCH ×4 (09:00→21:00)
[2017-11-23] MEDS: METOPROLOL 50 MG TAB PO SCH ×2 (10:12→21:06)
[2017-11-23] MEDS: FUROSEMIDE 40 MG TAB PO SCH ×2 (10:13→21:06)
--- NOTE | 2017-11-23 13:52 | NUR ---
PT WAS COMPLAINING OF PAIN ON HIS LEFT ARM. OFFERED NORCO FOR PAIN. PT REFUSED PAIN MED. PT STATED HE WAS FEELING NAUSEOUS. ADMINISTERED ZOFRAN IVP FOR NAUSEA. PT TOLERATED WELL. NO SIGNS OF DISTRESS. PT LYING RIGHT LATERAL. CALL LIGHT WITHIN REACH. WILL CONTINUE TO MONITOR.
--- NOTE | 2017-11-23 15:45 | NUR ---
CALLED [facility] AND SPOKE WITH VINNY [phone]. FAXED OVER OUTPATIENT PARACENTESIS ORDER, LABS, AND MEDS. PT WILL BE D/C TODAY. SAID WILL ARRANGE FOR TRANSPORTATION.
[2017-11-23 16:00] VITALS: BP 138/70
--- NOTE | 2017-11-23 17:26 | NUR ---
RECEIVED CALL FROM [facility]. SAID THEY CANNOT SEND PT HOME TONIGHT DUE TO NO CAREGIVER AVAILABLE. PT SCHEDULED CNC SUPERVISOR FOR TOMORROW MORNING AT 9AM.
--- NOTE | 2017-11-23 17:40 | NUR ---
NON-ADMIN LACTULOSE. PT REFUSED MED. EXPLAINED RISKS AND BENEFITS OF MED. PT STATED HE DOES NOT WANT TO TAKE BECAUSE WILL MAKE HIM HAVE BM AND HE STATED "I ALREADY FEEL LIKE I HAVE TO RIGHT NOW." NON-ADMIN LACTULOSE. WILL CONTINUE TO MONITOR.
--- NOTE | 2017-11-23 18:25 | NUR ---
PT ATE 10% OF DINNER TRAY. STATED HE HAS TOO MUCH FOOD ON TRAY AND IS NOT THAT HUNGRY RIGHT NOW. ASKED FOR DIET [employer] [employer] [place] [employer]. CALLED [facility] FOR SODA. SAID THEY WILL ADD THAT TO PT'S TRAY. PT WAS COMPLAINING OF BACK BEING ITCHY. APPLIED LOTION TO BACK AND ENCOURAGED PT TO TURN FROM LYING TO BACK TO SIDE WHILE IN BED. PT LYING ON RIGHT LATERAL. NO SIGNS OF DISTRESS. CALL LIGHT WITHIN REACH. WILL CONTINUE TO MONITOR.
--- NOTE | 2017-11-23 19:15 | NUR ---
ENDORSED PT TO APPEALS REPRESENTATIVE NURSE AT BEDSIDE FOR CONTINUITY OF CARE. PT IN STABLE CONDITION.
--- NOTE | 2017-11-23 19:16 | NUR ---
RECEIVED REPORT FROM DAY SHIFT NURSE. AAOX4. ON O2 AT 2L/MIN. NO C/O SOB. NO C/O PAIN. IV TO LEFT HAND #20G, SALINE LOCK. DRY SCABS TO PAUL FEET. AMPUTATION TO RIGHT FOOT 2ND AND 3RD TOE. SAFETY PRECAUTION IN PLACE. CALL LIGHT WITHIN REACH.
--- NOTE | 2017-11-23 21:00 | NUR ---
PATIENT REFUSED BLOOD SUGAR CHECKED AND LACTULOSE. EXPLAINED THE RISK AND BENEFITS, PT STILL REFUSED. PT'S BROTHER AT BEDSIDE.
--- NOTE | 2017-11-23 21:50 | NUR ---
PT CALLED AND ASKING FOR HIS BLOOD SUGAR TO BE CHECKED. BS CHECKED 141. NO INSULIN COVERAGE NEEDED.
[2017-11-24] VITALS: BP 149/74
--- NOTE | 2017-11-24 00:20 | NUR ---
PT C/O PAIN 6/10 SCALE BUT REFUSED PAIN MEDS NORCO.
--- NOTE | 2017-11-24 00:40 | NUR ---
PT C/O ADB PAIN AND WANTS TO GO NUMBER 2 BUT HE'S CONSTIPATED. PT REFUSED LACTULOSE. HE JUST WANT MORPHINE. EXPLAINED TO PT THAT THERE'S NO ORDER FOR MORPHINE FOR PAIN AND MORPHINE WILL MAKE HIM MORE CONSTIPATED. PT INSISTING TO HAVE MORPHINE. WILL PAGE DR. MCFARLANE.
--- NOTE | 2017-11-24 00:50 | NUR ---
SPOKE WITH DR. GLEASON, CYANIDE POT TENDER FOR DR. MCFARLANE. PER DR. GLEASON DON'T GIVE MORPHINE OR ANY NARCOTICS FOR PT, IT WILL MAKE HIM MORE CONSTIPATED. JUST GIVE LAXATIVE OR ENEMA.
--- NOTE | 2017-11-24 00:52 | NUR ---
PT MADE AWARE OF DOCTOR'S ORDER BUT STILL REFUSED LAXATIVE AND ENEMA.
--- NOTE | 2017-11-24 02:24 | NUR ---
PT STATED "I HAVE TO GO NUMBER 2 RIGHT NOW". ASKED IF HE WANTS TO USE THE BEDSIDE COMMODE OR BED AGUERO, HE SAID BED AGUERO. BED AGUERO GIVEN.
--- NOTE | 2017-11-24 02:40 | NUR ---
NO BM. OFFERED LACTULOSE OR ENEMA AGAIN BUT PT REFUSED.
--- NOTE | 2017-11-24 03:55 | NUR ---
PT HAD BIG AND HARD BM. BARBIE CARE DONE. NO RESP DISTRESS NOTED.
--- NOTE | 2017-11-24 05:30 | NUR ---
PT STATED " I FEEL BETTER". BLOOD SUGAR CHECKED 88. PT TOOK/DRANK THE PRUNE JUICE I OFFERED HIM AWHILE AGO. NO DISTRESS NOTED.
--- NOTE | 2017-11-24 05:40 | NUR ---
PT RESTING IN BED. NO C/O PAIN AT THIS TIME. SCD'S APPLIED. NEEDS MET AT THIS TIME. SAFETY PRECAUTION IN PLACE. CALL LIGHT WITHIN REACH.
[2017-11-24 06:35] LABS: BASOPHILS # (AUTO) 0.1 K/uL (0.00-0.22); BASOPHILS % (AUTO) 0.8 % (0.0-2.0); EOSINOPHILS # (AUTO) 0.4 K/uL (0-0.4); EOSINOPHILS % (AUTO) 6.6 % (0.0-4.0); HEMATOCRIT 31.9 % (36-52); HEMOGLOBIN 10.3 g/dL (12.0-18.0); LYMPHOCYTES # (AUTO) 0.3 K/uL (2.0-11.5); LYMPHOCYTES % (AUTO) 4.3 % (20.5-51.1); MEAN CORPUSCULAR HEMOGLOBIN 30 pg (27-31); MEAN CORPUSCULAR HGB CONC 32 g/dL (33-37); MEAN CORPUSCULAR VOLUME 93.1 fL (80-94); MONOCYTES # (AUTO) 0.8 K/uL (0.8-1.0); NEUTROPHILS # (AUTO) 5.1 K/uL (1.8-7.7); NEUTROPHILS % (AUTO) 76.3 % (42.2-75.2); PLATELET COUNT (AUTO) 183 K/uL (140-450); RED BLOOD CELL COUNT(AUTO) 3.42 MIL/uL (4.20-6.10); RED CELL DISTRIBUTION WIDTH 16.7 % (11.6-13.7); WHITE BLOOD COUNT (AUTO) 6.6 K/uL (4.8-10.8)
[2017-11-24 06:52] LABS: ALBUMIN 2.1 g/dL (3.4-5.0); ANION GAP 14.5 (8-16); CARBON DIOXIDE 23.5 mmol/L (21-32); TOTAL BILIRUBIN 0.4 mg/dL (0.0-1.0)
--- NOTE | 2017-11-24 07:10 | NUR ---
ENDORSED PT TO DAY SHIFT NURSE. PT IN STABLE CONDITION.
--- NOTE | 2017-11-24 07:11 | NUR ---
RECEIVED REPORT FROM FINANCIAL DEVELOPER NURSE ASTON AT BEDSIDE FOR CONTINUITY OF CARE. PT IS AWAKE AND ORIENTED X4. INTRODUCED SELF AND UPDATED BOARD. NO SIGNS OF DISTRESS. NO SOB. PT DENIES CHEST PAIN. ON O2 NC 2L/MIN. O2 SAT 95%. PT VOIDED IN URINAL. 200ML OUTPUT NOTED. CALL LIGHT WITHIN REACH. WILL CONTINUE TO MONITOR.
[2017-11-24 07:28] LABS: CREATININE 4.9 mg/dL (0.7-1.3)
--- NOTE | 2017-11-24 07:35 | NUR ---
REPORTED TO DR. MCFARLANE PT'S K 6.0, BUN 63 AND CREATININE 4.9. ORDERS RECEIVED. REPORTED THAT PT WILL BE PICKED UP TODAY AT 9AM AND GO TO HOSPICE.
[2017-11-24] MEDS ORDERED: SODIUM POLYSTYRENE 15 GM/60 ML UDBTL PO SCH (07:45)
[2017-11-24 07:55] VITALS: BP 125/83
--- NOTE | 2017-11-24 08:45 | NUR ---
PT REFUSED MORNING MEDS. PT STATED HE WAS FEELING TOO MUST DISCOMFORT TO TAKE MEDS. PT YELLED AND STATED I'M NOT TAKING THEM. EXPLAINED TO PT RISKS AND BENEFITS OF MEDS. HE SAID WILL TAKE WHEN HE GETS HOME. NON ADMIN MEDS. RETURNED TO [facility].
[2017-11-24] MEDS ORDERED: ASPIRIN 81 MG TAB.CHEW PO SCH (09:00)
--- NOTE | 2017-11-24 09:10 | NUR ---
PT D/C TO GO HOME ON HOSPICE. GAVE FORMS, INSTRUCTIONS, LABS, AND RX. PT VERBALIZED UNDERSTANDING AND SIGNED FORMS. REMOVED ID BAND AND IV CATHETER TO L HAND. IV CATHETER TIP INTACT. APPLIED DRESSING AND PRESSURE TO SITE. NO BLEEDING NOTED. PT CHANGED IN ORANGE GOWN. GAVE REPORT TO TRANSPORTERS. PT LEFT WITH ALL PERSONAL BELONGINGS. LEFT UNIT VIA GURNEY. LEFT IN STABLE CONDITION.
--- NOTE | 2017-11-25 15:29 | NUR ---
RETRO ER REPORT AND H&P FAXED TO [facility] [phone] NO DISCHARGE SUMMARY
== END 2017-11-24 09:10 | disposition hospice, home (50) ==
LOC: MED 03:22 → MTU 07:55 → OBSVTOIN 08:50
PROVIDERS: ADMIT Hospitalist; ATTEND Hospitalist
PROC: 0W9G3ZZ Drainage of Peritoneal Cavity, Percutaneous Approach (ICD-10-PCS; principal; 2017-11-23)
DX: R18.8 Other ascites (principal); E43 Unspecified severe protein-calorie malnutrition; J96.10 Chronic respiratory failure, unspecified whether with hypoxia or hypercapnia; E11.22 Type 2 diabetes mellitus with diabetic chronic kidney disease; N18.5 Chronic kidney disease, stage 5; I48.91 Unspecified atrial fibrillation; I50.9 Heart failure, unspecified; K74.60 Unspecified cirrhosis of liver; J44.9 Chronic obstructive pulmonary disease, unspecified; E66.9 Obesity, unspecified; Z91.013 Allergy to seafood; Z88.2 Allergy status to sulfonamides; Z79.899 Other long term (current) drug therapy; Z79.4 Long term (current) use of insulin; Z89.429 Acquired absence of other toe(s), unspecified side; Z91.14 Patient's other noncompliance with medication regimen; Z99.81 Dependence on supplemental oxygen; Z68.31 Body mass index [BMI] 31.0-31.9, adult
CPT/HCPCS: 49082; 96374; 99285; G0378; 36415; 80053; 82948; 85025; 85610; 87081; 94640; J1815; J2001; J2405; J7613; P9046